=== PATIENT | female | born 1960 | race Caucasian/White ===

== ENCOUNTER → 2016-11-27 | Outpatient (CLI) | payer BC ==
[~2016-11-27] MED LIST: BNT20 PO; BUSP5TAB59 PO; CALCTAB5 PO; CYCL-259 PO; DULO60CA44 PO; GABA-113 PO; GABA300C19 PO; GADAVIST IV PRN; MELO7.5T5 PO; MULT-845 PO; PANT40TA PO; POLY1POW2 PO; RXC5 PO; TRAM-10 PO
--- NOTE | 2016-11-27 11:07 | DIAGNOSTIC IMAGING REPORT ---
LUMBAR SPINE MRI WITH AND WITHOUT CONTRAST HISTORY: Chronic low back pain. LUMBAR RADICULOPATHY TECHNIQUE: Multiplanar multisequence MRI of the lumbar spine was performed both before and after the intravenous administration of contrast. COMPARISON: Lumbar spine MRI 10/21/2013. FINDINGS: For the purpose of the report the L5-S1 disc space will be located on axial image 27 of 30. Alignment and curvature are intact. Vertebral body heights are well maintained. There is no fracture or subluxation. There is severe disc space narrowing at L5-S1, unchanged. There is disc desiccation at L4-L5, unchanged. The conus terminates at the L1-L2 disc space level. There is moderate facet osteoarthritis at L5-S1. There is mild facet osteoarthritis at L3-L4 and L4-L5. Heterogeneous signal abnormality within the L5 and S1 endplates is likely due to long-standing degenerative change. There are postoperative changes consistent with a prior partial laminectomy at the L5-S1 level. Postcontrast sequences demonstrate a small focus of enhancement within the large disc herniation at L5-S1. Slight progression of the decreased T1 signal and enhancement at the L5-S1 endplates with mild prevertebral edema which is new from the prior study. However, there is no definite endplate erosions at this time. L1-L2: No significant central canal or neural foraminal narrowing. L2-L3: No significant central canal or neural foraminal narrowing. L3-L4: No significant central canal or neural foraminal narrowing. There is mild bilateral facet hypertrophy. L4-L5: There is a focal central disc protrusion with mild inferior subligamentous migration. This measures approximately 15 x 7 mm in size. In conjunction with the ligamentum and facet hypertrophy, this results in mild to moderate central canal narrowing. This is similar to the prior study. There is also mild bilateral neural foraminal narrowing, unchanged. This disc herniation abuts the bilateral transiting L5 nerve roots. L5-S1: There is redemonstration of the large focal central disc protrusion which measures approximately 19 x 11 mm. This results in moderate to severe central canal narrowing at this level. There is also bilateral severe neural foraminal narrowing due to the facet hypertrophy. This is also similar to the prior study. IMPRESSION: 1. Redemonstration of the large focal central disc protrusion at L5-S1 which results in moderate to severe central canal narrowing and severe bilateral neural foraminal narrowing. This is not significantly changed. 2. Redemonstration of the moderate focal central disc protrusion at L4-L5 which results in mild to moderate central canal narrowing and mild bilateral neural foraminal narrowing. This is also not significantly changed. 3. Postsurgical changes at L5-S1. 4. Slight progression of the decreased T1 signal and enhancement at the L5-S1 endplates with mild prevertebral edema which is new from the prior study. There is also a small focus of enhancement within the large herniated disc. These findings are nonspecific in the setting of postoperative changes but could represent a developing discitis/osteomyelitis. Clinical correlation recommended. Electronically signed by: Dominick Malloy M.D. 11/27/2016 11:06 AM Dictated Date/Time: 11/27/2016 10:51 AM
== END | disposition home or self-care (01) ==
PROVIDERS: ATTEND Physician Assistant
DX: M51.17 Intervertebral disc disorders with radiculopathy, lumbosacral region (principal)

== ENCOUNTER 2017-01-29 08:11 | Inpatient (IN) | payer BC ==
--- NOTE | 2017-01-12 14:01 | PAT Medication Instructions ---
Service Date January 12, 2017. Current Home Medication List Buspirone Hcl (Buspirone Hcl), 1 TAB PO BID Calcium (Caltrate), 600 MG PO BID Cyclobenzaprine Hcl (Flexeril), 10 MG PO prn at hs Duloxetine Hcl (Cymbalta), 60 MG PO HS Gabapentin (Neurontin), 600 MG PO HS Gabapentin (Neurontin), 300 MG PO BID Meloxicam (Mobic), 15 MG PO QAM Multiple Vitamins W/ Minerals (Centrum Silver Adult 50+), 1 TAB PO QAM Tramadol (Ultram), 50-100 MG PO TID PRN for Pain Medication Instructions For Your Scheduled Surgery - Check with surgeon for instructions: Meloxicam (Mobic), 15 MG PO QAM - Hold the following medications the morning of surgery: Multiple Vitamins W/ Minerals (Centrum Silver Adult 50+), 1 TAB PO QAM Calcium (Caltrate), 600 MG PO BID - Take the following medications the morning of surgery with a sip of water: Gabapentin (Neurontin), 300 MG PO BID Buspirone Hcl (Buspirone Hcl), 1 TAB PO BID Tramadol (Ultram), 50-100 MG PO TID PRN for Pain (okay to take up to 4 hours prior to surgery if needed) - Take the following medications as scheduled the night before surgery: Gabapentin (Neurontin), 300 MG PO BID Duloxetine Hcl (Cymbalta), 60 MG PO HS Gabapentin (Neurontin), 600 MG PO HS Cyclobenzaprine Hcl (Flexeril), 10 MG PO prn at hs (if needed) Calcium (Caltrate), 600 MG PO BID Buspirone Hcl (Buspirone Hcl), 1 TAB PO BID Tramadol (Ultram), 50-100 MG PO TID PRN for Pain (if needed) If you have any questions please call us at [phone] (Lorie Flowers PA-C) or [phone] or [phone]
--- NOTE | 2017-01-12 15:03 | DIAGNOSTIC IMAGING REPORT ---
CHEST 2 VIEWS ROUTINE CLINICAL HISTORY: Preoperative evaluation. COMPARISON STUDY: Chest radiograph February 11, 2016. FINDINGS: Lung volumes are normal. There is no pneumothorax or pleural effusion. Nipple shadows project over each lung. Cardiac size is normal. Mediastinal contours are normal. There is mild pectus excavatum deformity. There is no evidence of pulmonary edema. IMPRESSION: No acute cardiopulmonary findings. Electronically signed by: Romel Rojas M.D. 01/12/2017 3:02 PM Dictated Date/Time: 01/12/2017 3:01 PM
[2017-01-12 15:21] LABS: BASO % 0.9 %; BASO ABS # 0.07 K/uL (0-0.2); COMPLETE YES; EOS % 2.6 %; HEMATOCRIT 35.2 % (37-47); IG% 0.1 %; LYMPH % 42.2 %; LYMPH ABS # 3.23 K/uL (1.2-3.4); MEAN CELL VOLUME 98.3 fL (80-100); MEAN CORPUSCULAR HGB CONC 33.5 g/dl (32-36); MEAN PLATELET VOLUME 10.8 fL (7.4-10.4); MONO % 9.1 %; NEUT % 45.1 %; PLATELET COUNT 277 K/uL (130-400); RED BLOOD COUNT 3.58 M/uL (4.2-5.4); WHITE BLOOD COUNT 7.66 K/uL (4.8-10.8)
[2017-01-12 15:27] LABS: URINE APPEARANCE CLOUDY (CLEAR); URINE BILIRUBIN NEG (NEG); URINE COLOR YELLOW; URINE EPITHELIAL CELL AUTO >30 /lpf (0-5); URINE NITRITE NEG (NEG); URINE SPECIFIC GRAVITY 1.014 (1.000-1.030); UROBILINOGEN NEG (NEG)
[2017-01-12 15:28] LABS: CALCIUM 8.8 mg/dl (8.5-10.1); CREATININE 0.69 mg/dl (0.60-1.20); POTASSIUM 3.9 mmol/L (3.5-5.1)
[2017-01-12 15:32] LABS: MANUAL MICROSCOPIC REQUIRED? NO; REVIEW REQ? NO
[~2017-01-29] VITALS: Ht 157.5 cm; Wt 49.5 kg
[2017-01-29] VITALS (9 sets, daily range): BP systolic 95–124; BP diastolic 61–83; PULSE 69–90; TEMP 36.5–36.9; O2SAT 96–100; Ht 157.5 cm; Wt 49.5 kg
[~2017-01-29 08:11] MED LIST changes: +ANCEF: ALLERGY NOTED TO ORDERED MEDICATION SCH; +ATROPINE SULFATE 0.1 MG/ML 5ML SYR IV PRN; -BNT20 PO; +CEFAZOLIN 1000MG/55 ML D5W IV SCH; +EpHEDrine SULFATE INJ 50 MG/ML AMP IV PRN; +FENTANYL CITRATE INJ 50 MCG/1 ML 2 ML VIAL IV PRN; +GABA-1218 PO; -GABA300C19 PO; -GADAVIST IV PRN; +HYDROmorphone INJ 1 MG/ML SYR IV PRN; +LACTATED RINGER'S 1000ML 1,000 ML IV SCH; +ONDANSETRON INJ 2 MG/ML 2 ML VIAL IV PRN; -PANT40TA PO; -POLY1POW2 PO; -RXC5 PO
[2017-01-29] MEDS ORDERED: FENTANYL CITRATE INJ 50 MCG/1 ML 2 ML VIAL ONE ×3 (08:43→09:42)
[2017-01-29] MEDS ORDERED: MIDAZOLAM HCL 1 MG/ML 2ML VIAL ONE (08:43)
--- NOTE | 2017-01-29 08:55 | History and Physical ---
History & Physical Date January 29, 2017. Chief Complaint back and leg pain History of Present Illness The patient is a 56 year old female with complaints of Additional History Hepatic Disease: No Endocrine Disorder: No Kidney Disease: No Hypertension: No Heart Disease: No Bleeding Tendencies: No Infectious Diseases: No Allergies Coded Allergies: Penicillins (Verified Allergy, Mild, RASH, 01/29/17) Home Medications Scheduled Buspirone Hcl (Buspirone Hcl), 1 TAB PO BID Calcium (Caltrate), 600 MG PO BID Cyclobenzaprine Hcl (Flexeril), 10 MG PO prn at hs Duloxetine Hcl (Cymbalta), 60 MG PO HS Gabapentin (Neurontin), 600 MG PO HS Gabapentin (Neurontin), 300 MG PO BID Meloxicam (Mobic), 15 MG PO QAM Multiple Vitamins W/ Minerals (Centrum Silver Adult 50+), 1 TAB PO QAM Scheduled PRN Tramadol (Ultram), 50-100 MG PO TID PRN for Pain Physical Examination Skin: warm/dry, no rash Eyes: normal inspection, EOMI, sclerae normal ENT: normal ENT inspection, pharynx normal Head: normocephalic, atraumatic Neck: supple, no adenopathy, trachea midline Respiratory/Chest: lungs clear, normal breath sounds, no respiratory distress Cardiovascular: regular rate, rhythm, no edema, no murmur Abdomen / GI: normal bowel sounds, non tender Back: normal inspection Extremities: normal inspection, normal range of motion Neurologic/Psych: no motor/sensory deficits, alert, normal reflexes, oriented x 3 Diagnosis lumbar stenosis Plan of Treatment decompression fusion L4-S1
--- NOTE | 2017-01-29 08:55 | History & Physical Bridge Note ---
H&P Re-Evaluation Bridge Note: I have examined the patient, reviewed the History & Physical and in the interval since the performance of the History & Physical I have noted the following changes of clinical significance: No changes noted
[2017-01-29] MEDS ORDERED: BUPIVACAINE/EPINEPHRINE 0.5% MPF 1:200,000 30 ML VIAL ONE (09:12)
[2017-01-29] MEDS ORDERED: BACITRACIN 50000 UNIT VIAL ONE (09:12)
[2017-01-29] MEDS ORDERED: SODIUM CHLORIDE 0.9% PF 50 ML VIAL ONE (09:12)
[2017-01-29] MEDS ORDERED: HYDROmorphone INJ 2 MG/ML SYR/VIAL ONE ×3 (09:42→11:38)
[2017-01-29] MEDS ORDERED: PHENYLEPHRINE 100MCG/ML 5ML SYR ONE ×2 (11:02→11:38)
[2017-01-29] MEDS ORDERED: ESMOLOL HCL 10 MG/ML 10 ML VIAL ONE (11:02)
[2017-01-29] MEDS ORDERED: PROPOFOL IV EMULSION 10 MG/ML 20 ML VIAL IV ONE (11:02)
[2017-01-29] MEDS ORDERED: DEXAMETHASONE SOD INJ 4 MG/ML VIAL ONE (11:02)
[2017-01-29] MEDS ORDERED: LIDOCAINE HCL 2% 2 ML VIAL (20MG/ML) ONE (11:02)
[2017-01-29] MEDS ORDERED: ROCURONIUM BROMIDE 10 MG/ML 5 ML VIAL ONE (11:02)
[2017-01-29] MEDS ORDERED: FLOSEAL HEMOSTATIC MATRIX 10ML TOP ONE (11:28)
[2017-01-29] MEDS ORDERED: SODIUM CHLORIDE 0.9% 1000ML 1,000 ML IV SCH (11:31)
--- NOTE | 2017-01-29 11:31 | [facility] Post Operative Brief Note ---
Immediate Operative Summary Operative Date January 29, 2017. Pre-Operative Diagnosis Lumbar Spinal Stenosis Post-Operative Diagnosis Lumbar Spinal Stenosis Procedure(s) Performed L4-L5, L5-S1 Lumbar Decompression/Laminectomy, Discectomy; Placement of Interbody Spacer; Pedicle Screw Fixation; Application of Bone Graft (Allograft) Application of Bone Morphogenetic Protein, and Posterolateral Gutter Fusion Surgeon Dr. Ochoa Master [employer] Surgeon(s) FLORINA Butler Estimated Blood Loss 150ML Findings stenosis/hnp Specimens none per surgeon
[2017-01-29] MEDS ORDERED: NEOSTIGMINE METHYLSULFATE 1 MG/ML 10ML VIAL ONE (11:38)
[2017-01-29] MEDS ORDERED: GLYCOPYRROLATE INJ 0.2 MG/ML VIAL ONE (11:38)
[2017-01-29] MEDS ORDERED: ONDANSETRON INJ 2 MG/ML 2 ML VIAL ONE ×2 (11:38)
[2017-01-29] MEDS ORDERED: ONDANSETRON INJ 2 MG/ML 2 ML VIAL IV PRN (11:45)
[2017-01-29] MEDS ORDERED: DO NOT ADMINISTER PNEUMOCOCCAL VACCINE PRN ×2 (11:45)
[2017-01-29] MEDS ORDERED: ALUMINUM/MAGNESIUM SUSP 30 ML UDC PO PRN (11:45)
[2017-01-29] MEDS ORDERED: SOD PHOSPHATE/SOD BIPHOSPHATE ENEMA 132 ML BTL PR PRN (11:45)
[2017-01-29] MEDS ORDERED: NALOXONE HCL 0.4 MG/1 ML VIAL/CARP IV PRN ×2 (11:45)
[2017-01-29] MEDS ORDERED: METOCLOPRAMIDE HCL INJ 5 MG/ML 2 ML VIAL IV PRN (11:45)
[2017-01-29] MEDS ORDERED: CYCLOBENZAPRINE HCL 10 MG TAB PO PRN (11:45)
[2017-01-29] MEDS ORDERED: MAGNESIUM HYDROXIDE SUSP 30 ML UDC PO PRN (11:45)
[2017-01-29] MEDS ORDERED: PROMETHAZINE HCL INJ 12.5 MG in SODIUM CHLORIDE 0.9% 50ML 50 ML IV PRN (11:45)
[2017-01-29] MEDS ORDERED: ACETAMINOPHEN 500 MG TAB PO PRN (11:45)
[2017-01-29] MEDS ORDERED: BISACODYL 10 MG SUPP PR PRN (11:45)
[2017-01-29] MEDS ORDERED: LORAZEPAM INJ 0.5 MG in SYRINGE 0 ML IV PRN (11:45)
[2017-01-29] MEDS ORDERED: hydrOXYzine HCL 25 MG TAB PO PRN (11:45)
[2017-01-29] MEDS ORDERED: LORAZEPAM 0.5 MG TAB PO PRN (11:45)
[2017-01-29] MEDS ORDERED: ACETAMINOPHEN IV 100 ML IV PRN (11:45)
[2017-01-29] MEDS ORDERED: FAMOTIDINE 20 MG TAB PO PRN (11:45)
[2017-01-29] MEDS ORDERED: DO NOT ADMINISTER FLU VACCINE PRN ×3 (11:45)
[2017-01-29] MEDS ORDERED: HYDROmorphone HCL 0.5MG/ML 50 ML CASSETTE ONE (11:54)
[2017-01-29] MEDS ORDERED: ALBUT/IPRATROP 3MG/0.5MG NEB 3 ML VIAL INH PRN (12:00)
--- NOTE | 2017-01-29 12:07 | DIAGNOSTIC IMAGING REPORT ---
INTRAOPERATIVE RADIOGRAPHS CLINICAL HISTORY: L4-S1 spinal fusion. Fluoroscopy time: 26 seconds. FINDINGS: 2 spot fluoroscopic views of the lower lumbar spine are presented. There is evidence of laminectomy and posterior fusion from L4 -S1. Interpedicular screws are present at all levels. There has been discectomy at L4-L5 and L5-S1. The orthopedic hardware appears intact. IMPRESSION: Intraoperative images from L4 -S1 spinal fusion as above. Electronically signed by: Antwan Love M.D. 01/29/2017 12:06 PM Dictated Date/Time: 01/29/2017 12:05 PM
--- NOTE | 2017-01-29 12:21 | OPERATIVE REPORT ---
DATE OF OPERATION: 01/29/2017 PREOPERATIVE DIAGNOSES: Spinal stenosis and herniated nucleus pulposus, L4-L5 and L5-S1. POSTOPERATIVE DIAGNOSES: Same. PROCEDURES PERFORMED: 1. Revision decompression, medial facetectomy and foraminotomy, L4-L5 and L5-S1. 2. Posterior spinal fusion, L4-L5 and L5-S1. 3. Placement of posterior segmental instrumentation using Medicrea rods and screws, L4-L5 and L5-S1. 4. Interbody fusion, L4-L5 and L5-S1. 5. Placement of PEEK cage 12 x 22 at L4-L5 and 8 x 22 at L5-S1. 6. Placement of locally harvested morcellized autograft in the posterior gutters. 7. Placement of Infuse collagen sponge combined with Mastergraft in the posterior gutters and Olivia bone graft in the interbody space. SURGEON: Dr. Kodak Ochoa. MARINE EQUIPMENT RESEARCH ENGINEER: Ara Mccoy PA-C. Due to the complex nature of the procedure, the entire surgery was performed with the assistant health educator of Ara Mccoy PA-C. The blacksmith assistant, under direct supervision, was involved in the actual performance of all aspects of the surgical procedure including hemostasis, tissue retraction and incision, instrument management, patient positioning, and wound closure. ANESTHESIA: General. DISPOSITION: The patient awakened and taken to PACU in stable condition. HISTORY OF PATIENT'S PROBLEMS: This is a 56-year-old female that presents with the above-mentioned diagnoses. After failing an extensive course of nonoperative care, she elected to undergo the above-mentioned procedures. Risks, benefits, pros, cons, and alternatives were outlined in detail preoperatively. DESCRIPTION OF PROCEDURE: The patient was met with preoperatively, the case discussed and all questions were addressed. At that point, the patient was taken back to operative suite and after undergoing successful general intubation by department of anesthesia, she was placed in prone position on Trung table atop Giorgio frame. All bony prominences were well padded and the eyes were inspected to ensure there was no external pressure placed upon them. At this point, the lumbar spine was prepped and draped in normal sterile fashion. Sharp dissection with the assistance of Bovie cautery was performed down to and exposing the remaining lamina and transverse processes of L4, L5 and sacral ala bilaterally. A revision complete laminectomy of L5 and L4 was then performed addressing severe lateral recess foraminal disease as well as a massive disk herniation at both levels. After this was complete, pedicle screws were then placed in L4, L5 and S1 levels bilaterally with the assistance of fluoroscopy and through a transforaminal approach on the left, a complete diskectomy of L5-S1 was performed, endplates curetted to subcortical bleeding bone and an 8 x 22 mm PEEK cage filled with Olivia bone grafting tapped into position. I then proceeded to L4-L5 and again through a transforaminal approach on the left, a complete diskectomy was performed, endplates curetted to subcortical bleeding bone and a 12 x 22 mm PEEK cage filled with Olivia bone grafting tapped into position. The rods were then placed, locked into final position bilaterally and transverse processes of L4, L5 and sacral ala burred to subcortical bleeding bone. Infuse collagen sponge combined with Mastergraft and locally harvested morcellized autograft was placed in the posterior gutters. A 7 flat LAI drain was inserted. Incision was closed with 1-0 Vicryl in the fascia, 2-0 Vicryl subcutaneously, and 4-0 Monocryl for final skin closure. Steri-Strips and sterile dressing placed. The patient was awakened and taken to PACU in stable condition. I attest to the content of the Intraoperative Record and any orders documented therein. Any exceptio ns are noted below.
--- NOTE | 2017-01-29 12:28 | Anesthesiology Progress Note ---
Anesthesia Post Op Note Date & Time January 29, 2017 at 12:28 Vital Signs Pain Intensity: 0 Vital Signs Past 12 Hours Date Time Temp Pulse Resp B/P Pulse Ox O2 Delivery O2 Flow Rate FiO2 01/29/17 12:15 96 16 127/75 100 Mask 10 01/29/17 12:15 90 12 100 Diffusion Mask 10.0 01/29/17 12:05 87 14 132/77 100 Mask 10 01/29/17 11:55 80 14 128/68 100 Mask 10 01/29/17 11:49 36.2 84 14 124/67 100 Mask 10 01/29/17 08:39 36.9 90 20 123/83 96 Room Air Notes Mental Status: alert / awake / arousable, participated in evaluation Pt Amnestic to Procedure: Yes Nausea / Vomiting: adequately controlled Pain: adequately controlled Airway Patency, RR, SpO2: stable & adequate BP & HR: stable & adequate Hydration State: stable & adequate Anesthetic Complications: no major complications apparent
[2017-01-29] MEDS: LACTATED RINGER'S 1000ML 1,000 ML IV SCH ×2 (14:29→21:03)
[2017-01-29] MEDS: HYDROmorphone HCL 0.5MG/ML 50 ML CASSETTE IV PRN ×2 (14:57→23:03)
[2017-01-29] MEDS ORDERED: RXC5 PO (15:13)
--- NOTE | 2017-01-29 15:13 | Discharge Instructions ---
Discharge Instructions Date of Service January 29, 2017. Admission Reason for Admission: Spinal Stenosis Discharge Discharge Diagnosis / Problem: stenosis Discharge Goals Goal(s): Improve function Activity Recommendations Activity Limitations: per Instructions/Follow-up section . Instructions / Follow-Up Instructions / Follow-Up ACTIVITY RECOMMENDATIONS: SELF CARE INSTRUCTIONS AFTER THORACIC/LUMBAR FUSIONS 1. You may walk to your tolerance. It is good exercise for your legs and back. Expect some back and intermittent leg aches and pains. 2. You may perform "counter-top" level activities (make a sandwich, cleve with a project, etc.). 3. No bending or lifting of more than 10 pounds or back twisting of any nature (roll like a log when turning in bed). 4. You may ride in a car for 20-30 minutes at a time. No driving until after your first visit with your doctor. 5. Frequent changes of position and restricting sitting to 30 minutes at a time will help limit the amount of back spasms and stiffness you may experience. 6. You may discontinue the use of ambulatory aids (cane, crutches, etc.) once your strength and confidence allow. 7. You may weaving teacher the shower and let water strike your incision when you arrive home at least once daily. Do not take a tub bath, sit in a hot tub or go into a swimming pool until after your first recheck in the office. SPECIAL CARE INSTRUCTIONS: VERY IMPORTANT TO READ AND REVIEW A. Your surgical incision has been closed with a cosmetic suture under the skin that will dissolve in about 6 weeks. In 14 days, you can use a pair of clean scissors and cut the suture that is left outside of the skin at the ends of your incision. 1. The small skin tapes can be removed 7 days after surgery if they have not fallen off by that point. 2. You may keep the wound open to air as much as possible to promote healing after post-op day number 5 unless told otherwise by your doctor. 3. If you think the wound looks like it is becoming infected (redness or worsening drainage) and/or you are experiencing fever, chill or worsening back pain and muscle spasms, contact the office so that we may evaluate you as soon as possible. B. Complications are uncommon, but please contact us if you have any signs or symptoms of: 1. wound infection (fever higher than 102.5 degrees F, redness, separation of wound, drainage, or increasing pain from the incision) 2. blood clots in legs (pain, swelling, redness and warmth in legs) 3. urinary tract infection (fever higher than 102.5 degrees F, burning upon urination or increased frequency of urination) 4. nerve problems (inability to walk on your toes or heels, numbness, loss of bowel or bladder control) 5. any other symptoms that concern you C. Please call the office at if you have any concerns or questions about your operation or recovery. D. No smoking! Smoking drastically decreases the chance of a solid fusion. E. Do not take any anti-inflammatory medications (Indocin, Advil, Motrin, Aspirin, Naprosyn, etc.) as these may inhibit the chance of a solid fusion. Tylenol is okay to take for pain. MANAGING PAIN AFTER SPINAL SURGERY 1. Narcotic medication is intended for short-term use and will be provided for surgical pain. Surgical pain usually lasts for a period of 4-6 weeks. Narcotic medication includes Percocet, Vicodin, Darvocet, Tylenol #3 or Lortab. 2. Longer-term pain is more appropriately treated with non-narcotic medication such as Tylenol ES. 3. Muscle spasm is not appropriately treated with narcotics. Muscle relaxers such as Soma, Flexeril or Skelaxin can be used along with Tylenol ES. 4. Remember that we all live with some "aches and pains". This is not unusual or uncommon after an injury or as we get older. a. Back pain is expected and may include muscle spasms for 4 to 6 weeks after surgery. The pain should gradually improve. If the pain worsens for no apparent reason, please contact the office. b. Intermittent leg pain may also be experienced and should not be concerned about unless it worsens for no apparent reason. If so, please contact the office. 5. We will provide appropriate medication within the normal guidelines of their prescribed use. We will also be very cautious and aware of potential abuse and extended duration of patients' medication needs. a. Pain medications are for your comfort and to assist with sleep and rest so that the tissue can heal. They are not provided in order to return to normal activity and should not be used through the day. To do so or worsening pain at night can result from ongoing tissue damage and development of tolerance to the prescribed medicine. 6. Please allow 2-3 days to process refills. Prescriptions will not be mailed but must be picked up at the office. FOLLOW UP VISIT: Keep your scheduled follow-up appointment. Any questions, please call the office at . Current Hospital Diet Patient's current hospital diet: Regular Diet Discharge Diet Recommended Diet: Regular Diet Procedures Procedures Performed: L4-L5, L5-S1 Lumbar Decompression/Laminectomy, Discectomy; Placement of Interbody Spacer; Pedicle Screw Fixation; Application of Bone Graft (Allograft) Application of Bone Morphogenetic Protein, and Posterolateral Gutter Fusion Pending Studies Studies pending at discharge: no Medical Emergencies . Who to Call and When: Medical Emergencies: If at any time you feel your situation is an emergency, please call 911 immediately. . Non-Emergent Contact Non-Emergency issues call your: Primary Care Provider . "Provider Documentation" section prepared by Kodak Ochoa. . VTE Core Measure Inpt VTE Proph given/why not?: Zach Andres, SCD's
[2017-01-29] MEDS: CLINDAMYCIN IV 600 MG in DEXTROSE 5% ADD-VANTAGE 50ML 50 ML IV SCH (18:34)
[2017-01-29] MEDS ORDERED: NURSING VERBAL MED ORDER ONE (21:00)
[2017-01-29] MEDS: GABAPENTIN 600 MG TAB PO SCH (21:02)
[2017-01-29] MEDS: DULOXETINE HCL 60 MG CAP PO SCH (21:02)
[2017-01-29] MEDS: NICOTINE 21 MG/24 HR TDSY EXT SCH (21:03)
[2017-01-29] MEDS: DOCUSATE SODIUM/SENNA 50/8.6MG TAB PO SCH (21:03)
[2017-01-29] MEDS: DEXAMETHASONE INJ 6 MG in SYRINGE 0 ML IV SCH (21:17)
[2017-01-30] MEDS: CLINDAMYCIN IV 600 MG in DEXTROSE 5% ADD-VANTAGE 50ML 50 ML IV SCH (02:55)
[2017-01-30] MEDS: LACTATED RINGER'S 1000ML 1,000 ML IV SCH (02:56)
[2017-01-30 03:11] VITALS: BP 106/60; PULSE 82; TEMP 36.7; O2SAT 100
[2017-01-30] MEDS: DEXAMETHASONE INJ 6 MG in SYRINGE 0 ML IV SCH ×2 (04:59→11:57)
[2017-01-30] MEDS ORDERED: HYDROmorphone INJ 1 MG/ML SYR IV PRN (06:00)
[2017-01-30] MEDS ORDERED: DC PCA SCH (06:00)
[2017-01-30 06:32] LABS: BASO % 0.1 %; BASO ABS # 0.01 K/uL (0-0.2); COMPLETE YES; HEMATOCRIT 30.2 % (37-47); IG% 0.2 %; LYMPH % 7.6 %; LYMPH ABS # 1.01 K/uL (1.2-3.4); MEAN CELL VOLUME 99.3 fL (80-100); MEAN CORPUSCULAR HEMOGLOBIN 32.9 pg (25-34); MEAN CORPUSCULAR HGB CONC 33.1 g/dl (32-36); MEAN PLATELET VOLUME 10.5 fL (7.4-10.4); MONO % 6.7 %; NEUT % 85.4 %; PLATELET COUNT 231 K/uL (130-400); RED BLOOD COUNT 3.04 M/uL (4.2-5.4); WHITE BLOOD COUNT 13.36 K/uL (4.8-10.8)
[2017-01-30] MEDS ORDERED: NURSING VERBAL MED ORDER ONE (06:45)
[2017-01-30 07:02] LABS: BUN/CREATININE RATIO 9.3 (10-20); CALCIUM 8.1 mg/dl (8.5-10.1); CREATININE 0.84 mg/dl (0.60-1.20); POTASSIUM 4.5 mmol/L (3.5-5.1)
[2017-01-30 07:13] VITALS: BP 111/67; PULSE 81; TEMP 36.8; O2SAT 96
--- NOTE | 2017-01-30 08:14 | Anesthesiology Progress Note ---
Anesthesia Post Op Note Date & Time January 30, 2017 at 08:14 Vital Signs Pain Intensity: 5.0 Vital Signs Past 12 Hours Date Time Temp Pulse Resp B/P Pulse Ox O2 Delivery O2 Flow Rate FiO2 01/30/17 07:20 Room Air 01/30/17 07:13 36.8 81 17 111/67 96 Room Air 01/30/17 03:11 Room Air 01/30/17 03:11 36.7 82 16 106/60 100 Room Air 01/30/17 00:26 Nasal Cannula 2.0 01/29/17 23:35 36.7 75 16 107/68 100 Nasal Cannula 2.0 Notes Mental Status: alert / awake / arousable, participated in evaluation Pt Amnestic to Procedure: Yes Nausea / Vomiting: adequately controlled Pain: adequately controlled Airway Patency, RR, SpO2: stable & adequate BP & HR: stable & adequate Hydration State: stable & adequate Anesthetic Complications: no major complications apparent
[2017-01-30] MEDS: GABAPENTIN 300 MG CAP PO SCH ×2 (08:26→11:57)
[2017-01-30] MEDS: OXYCODONE HCL IR 5 MG TAB (IMMEDIATE RELEASE) PO PRN ×2 (08:26→23:59)
[2017-01-30] MEDS: TRAMADOL HCL 50 MG TAB PO PRN ×2 (12:00→18:07)
[2017-01-30 12:51] VITALS: BP 127/82; PULSE 94; TEMP 36.9; O2SAT 97
--- NOTE | 2017-01-30 15:13 | PROGRESS NOTE ---
DATE: 01/30/2017 DATE: 01/30/2017. SUBJECTIVE: Postop day 1. Back pain controlled. Leg pain improved. Vital signs stable. T-max 36.9. LAI drained 140 mL today. Hematocrit stable at 30.1. OBJECTIVE: On exam she has good strength to testing, appears comfortable. ASSESSMENT: Status post lumbar decompression and fusion. PLAN: At this time, will continue physical therapy, advance her bowel regimen and anticipate home this weekend.
[2017-01-30 15:55] VITALS: BP 129/83; PULSE 94; TEMP 36.9; O2SAT 95
[2017-01-30] MEDS: NICOTINE 21 MG/24 HR TDSY EXT SCH (20:42)
[2017-01-30] MEDS: DOCUSATE SODIUM/SENNA 50/8.6MG TAB PO SCH (21:06)
[2017-01-30] MEDS: DULOXETINE HCL 60 MG CAP PO SCH (21:06)
[2017-01-30] MEDS: GABAPENTIN 600 MG TAB PO SCH (21:07)
[2017-01-30 23:05] VITALS: BP 129/79; PULSE 96; TEMP 36.9; O2SAT 95
[2017-01-31] MEDS ORDERED: POLYETHYLENE (MIRALAX) 17 GM PACK PO SCH (06:00)
[2017-01-31 07:21] VITALS: BP 125/92; PULSE 95; TEMP 36.9; O2SAT 92
[2017-01-31] MEDS: TRAMADOL HCL 50 MG TAB PO PRN (08:04)
[2017-01-31] MEDS: GABAPENTIN 300 MG CAP PO SCH (09:02)
[2017-01-31 10:24] VITALS: BP 125/92; PULSE 95; TEMP 36.9; O2SAT 92
--- NOTE | 2017-01-31 10:48 | DISCHARGE SUMMARY ---
PRINCIPAL DIAGNOSIS: Spinal stenosis. HOSPITAL COURSE FOLLOWS: On 01/29/2017 the patient underwent lumbar decompression and fusion L4-L5, L5-S1, tolerated this well and taken to the orthopedic floor postoperatively. Postop day #1, she was up and ambulatory, progressed to postop day #2. LAI drain decreasing appropriately, pain was controlled, subsequently discharged home. Discharge orders and instructions can be found in the chart for further review.
[2017-06-03] MEDS ORDERED: BNT20 PO (18:37)
== END 2017-01-31 11:30 | disposition home or self-care (01) | DRG 460 ==
LOC: ENRESERVDT → ENRESERVTM → C.ACU 08:11 → C.3E 11:35
PROVIDERS: ADMIT Orthopaedic Surgery Orthopaedic Surgery of the Spine; ATTEND Orthopaedic Surgery Orthopaedic Surgery of the Spine
PROC: 0SG00A1 (ICD-10-PCS; principal; 2017-01-29 10:15)
PROC: 0ST40ZZ Resection of Lumbosacral Disc, Open Approach (ICD-10-PCS; principal; 2017-01-29 10:15)
PROC: 0SG30A1 (ICD-10-PCS; principal; 2017-01-29 10:15)
DX: M48.06 Spinal stenosis, lumbar region (principal); Z79.899 Other long term (current) drug therapy

== ENCOUNTER 2017-06-02 21:21 | Inpatient (IN) | payer BC ==
[~2017-06-02] VITALS: Ht 157.5 cm; Wt 45.9 kg
[~2017-06-02 21:21] MED LIST changes: -ANCEF: ALLERGY NOTED TO ORDERED MEDICATION SCH; -ATROPINE SULFATE 0.1 MG/ML 5ML SYR IV PRN; -CEFAZOLIN 1000MG/55 ML D5W IV SCH; -EpHEDrine SULFATE INJ 50 MG/ML AMP IV PRN; -FENTANYL CITRATE INJ 50 MCG/1 ML 2 ML VIAL IV PRN; -GABA-1218 PO; +GABA300C19 PO; -HYDROmorphone INJ 1 MG/ML SYR IV PRN; -LACTATED RINGER'S 1000ML 1,000 ML IV SCH; -MELO7.5T5 PO; -ONDANSETRON INJ 2 MG/ML 2 ML VIAL IV PRN; +RXC5 PO
[2017-06-02 21:45] VITALS: BP 120/84; PULSE 88; TEMP 36.6; O2SAT 100
[2017-06-02] MEDS ORDERED: ACETAMINOPHEN 325 MG TAB PO PRN (21:45)
[2017-06-02 21:46] VITALS: BP 120/84; PULSE 88; TEMP 36.6; O2SAT 100; Ht 157.5 cm; Wt 45.9 kg
[2017-06-02] MEDS ORDERED: MULTI-VITAMIN INFUSION INJ 10 ML, THIAMINE HCL INJ 100 MG, FoLIC ACID INJ 1 MG in SODIU... IV ONE (22:00)
[2017-06-02] MEDS ORDERED: POLY1POW2 PO (22:17)
[2017-06-02] MEDS ORDERED: PANT40TA PO (22:17)
[2017-06-02] MEDS ORDERED: MELO7.5T5 PO (22:17)
[2017-06-02] MEDS ORDERED: NICOTINE 14 MG/24 HR TDSY TD ONE (22:29)
[2017-06-02] MEDS ORDERED: GABAPENTIN 800 MG TAB PO SCH (22:30)
[2017-06-02] MEDS ORDERED: LORAZEPAM 2 MG/ML 1 ML VIAL IV PRN (22:30)
[2017-06-02 22:35] LABS: BASO % 0.7 %; BASO ABS # 0.09 K/uL (0-0.2); COMPLETE YES; EOS % 1.1 %; HEMATOCRIT 36.7 % (37-47); IG% 0.3 %; LYMPH ABS # 3.27 K/uL (1.2-3.4); MEAN CELL VOLUME 93.1 fL (80-100); MEAN CORPUSCULAR HEMOGLOBIN 33.2 pg (25-34); MEAN CORPUSCULAR HGB CONC 35.7 g/dl (32-36); MEAN PLATELET VOLUME 10.2 fL (7.4-10.4); MONO % 7.9 %; PLATELET COUNT 311 K/uL (130-400); RED BLOOD COUNT 3.94 M/uL (4.2-5.4)
[2017-06-02 22:45] LABS: PROTHROMBIN TIME (PATIENT) 10.7 SECONDS (9.0-12.0)
[2017-06-02] MEDS ORDERED: OXYCODONE/ACETAMINOPHEN 5-325 TAB PO PRN (22:45)
[2017-06-02] MEDS ORDERED: GABAPENTIN 800MG LOADING DOSE PO ONE (22:45)
[2017-06-02 22:56] LABS: CALCIUM 9.6 mg/dl (8.5-10.1); CREATININE 0.8 mg/dl (0.60-1.20); MAGNESIUM 2.3 mg/dl (1.8-2.4); POTASSIUM 3.4 mmol/L (3.5-5.1)
[2017-06-02] MEDS ORDERED: POTASSIUM CHLORIDE 10 MEQ TABCR PO STA (22:56)
[2017-06-03] MEDS ORDERED: MoRPHine SULFATE 2 MG/ML CARP IV PRN (00:15)
[2017-06-03] MEDS ORDERED: PANTOprazole INJ 40 MG in SYRINGE 0 ML IV ONE (00:45)
[2017-06-03 00:52] VITALS: BP 131/81; PULSE 82; TEMP 36.5; O2SAT 100
[2017-06-03] MEDS: LACTATED RINGER'S 1000ML 1,000 ML IV SCH ×2 (02:01→13:53)
[2017-06-03] MEDS: GABAPENTIN 400MG Q6H DOSE PO SCH ×2 (05:44→11:51)
[2017-06-03 06:48] LABS: BASO % 0.5 %; BASO ABS # 0.04 K/uL (0-0.2); COMPLETE YES; EOS % 2.1 %; HEMATOCRIT 34.7 % (37-47); IG% 0.2 %; LYMPH % 25.6 %; LYMPH ABS # 2.12 K/uL (1.2-3.4); MEAN CELL VOLUME 94.6 fL (80-100); MEAN CORPUSCULAR HEMOGLOBIN 30.5 pg (25-34); MEAN CORPUSCULAR HGB CONC 32.3 g/dl (32-36); MEAN PLATELET VOLUME 10.4 fL (7.4-10.4); MONO % 9.8 %; NEUT % 61.8 %; PLATELET COUNT 303 K/uL (130-400); RED BLOOD COUNT 3.67 M/uL (4.2-5.4); WHITE BLOOD COUNT 8.28 K/uL (4.8-10.8)
[2017-06-03 07:17] LABS: BUN/CREATININE RATIO 13.6 (10-20); CALCIUM 8.5 mg/dl (8.5-10.1); CREATININE 0.6 mg/dl (0.60-1.20)
[2017-06-03 07:28] VITALS: BP 126/78; PULSE 78; TEMP 36.7; O2SAT 96
--- NOTE | 2017-06-03 07:55 | HISTORY & PHYSICAL EXAMINATION ---
DATE OF ADMISSION: 06/02/2017 PRIMARY CARE PHYSICIAN: Dr. Michaels. CHIEF COMPLAINT: Abdominal pain. CHIEF COMPLAINT: Abdominal pain. Abnormal CAT scan. HISTORY OF PRESENT ILLNESS: History is obtained from the patient and records. Medical history is significant for daily alcohol intake, ongoing tobacco abuse, arthritis. anxiety/mood dso. Recent confinement January 2017 under Orthopedic service for back surgery. For about 2 years now, the patient has been having intermittent achy upper abdominal pain going to the back worse with stress at work. No relation to food intake. Patient notes improvement of pain when she is at home. She got back to work last month. Increasing anxiety, epigastric pain going to the back. Seen at PCP's office. Impression was adjustment/anxiety disorder. Patient denies depression. Patient was prescribed lorazepam and Buspar. Some improvement of symptoms. Outpatient lipase from last month was noted to be 96. She was told to stop drinking alcohol. Repeat lipase contemplated after 1 month. Seen at PCP's office yesterday for worsening epigastric with mid back pain with nausea, no vomiting, no emesis, no inordinate weight loss as per the patient. Seen at PCP's office. PCP worried about pancreatitis and gastritis. Started on PPI b.i.d., counseled to stop drinking. Outpatient CAT scan showed acute interstitial pancreatitis, no fluid collection, thickened posterior stomach, likely active inflammation, mild distention of the appendix; indeterminate density in the partially imaged lingula. Patient sent to the hospital by PCP as a direct admission. MEDICAL HISTORY: As above. SURGERIES: She has had orthopedic procedures. HOME MEDICATIONS: Include, meloxicam, Prilosec, tramadol, lorazepam, Buspar, Cymbalta, gabapentin, Caltrate, Centrum. ALLERGIC: TO PENICILLIN. FAMILY HISTORY: There is a family history of hypertension. PERSONAL AND SOCIAL HISTORY: Half pack daily. Two beers in the evening, may be more on the weekends. 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 REVIEW OF SYSTEMS: As per HPI. All other ROS negative. PHYSICAL EXAMINATION: VITAL SIGNS: Blood pressure was noted to be 130/80, pulse rate 86, RR 18, temperature 36.6, sats 92 on room air. GENERAL: Noted to be comfortable, slightly anxious, no respiratory distress. hyposthenic. SKIN: Normal color. HEENT: [place] palpebral conjunctiva. Dry mucosa. NECK: No JVD. Supple. CHEST: Clear to auscultation. HEART: Regular rate and rhythm. ABDOMEN: Epigastric tenderness. EXTREMITIES: No edema. No tenderness. NEUROLOGIC: No gross focality. LABORATORY DATA: Hemoglobin was noted to be 13.1, white cell count was 12.6, platelet was noted to be 311. Sodium noted to be 137, K 3.4 chloride 103, BUN 10, creatinine 0.8, glucose was 72 Alcohol was less than 3. Lipase was normal. ASSESSMENT: 1. Abdominal pain of more than a month duration multifactorial : recurrent pancreatitis possibly ETOH intake gastritis (patient predisposed by ETOH, NSAID intake) 2. Hypokalemia. 3. Malnutrition, low BMI 4. Ongoing tobacco abuse 5. Anxiety/Mood disorder, stable on meds PLAN: GMF analgesia. PPI BID GI consult RE abdominal pain, gastritis on CT, possible EGD. Hold home NSAIDs for now Patient counseled to stop drinking drinking. Replace potassium. DT precautions. Nicotine patch. Nutrition consult RE low BMI. DVT prophylaxis with Lovenox subQ. Full code. MTDD
[2017-06-03] MEDS ORDERED: THIAMINE HCL 100 MG TAB PO SCH (08:00)
[2017-06-03] MEDS ORDERED: CEROVITE ADV FORMULA TAB PO SCH (08:00)
[2017-06-03] MEDS ORDERED: MULTIVITAMIN TAB PO SCH (08:00)
[2017-06-03] MEDS ORDERED: ENOXAPARIN 30 MG/0.3 ML SYR SQ SCH (08:00)
[2017-06-03] MEDS ORDERED: PANTOprazole INJ 40 MG in SYRINGE 0 ML IV SCH (09:00)
[2017-06-03] MEDS: TRAMADOL HCL 50 MG TAB PO PRN ×2 (09:11→18:02)
[2017-06-03 11:52] VITALS: BP 119/75; PULSE 88; TEMP 36.3; O2SAT 98
--- NOTE | 2017-06-03 13:50 | Gastrointestinal Consultation ---
Gastrointestinal Consultation Date of Consultation: Jun 03, 2017 Attending Physician: Demetris Blackburn Consulting Physician: Solange Castaneda Reason for Consultation: Abd pain History of Present Illness Patient is a 57 year old female who is seen in consultation for abd pain. She has c/o abd pain at epigastric region usually radiating to back x 2 years. She alwa attributed it to stress at work because when she goes home or out of work due to recent surgery she feels fine. Denies any association w fever, chills, CP, SOB, n/v, unintentional weight loss or bowel habit changes. Denies any reflux or heartburn. Not taking any NSAIDs on regular basis. Is a smoker, and drinks up to 2 beers most nights. Denies any illicit drugs. She saw Dr. Michaels for worsening abd pain yesterday at outpt clinic. Suspected to have pancreatitis. Labs obtained 1 month ago showed normal LFTs but Lipase 96. CT abd/pelvis done yesterday showed nromal liver, bile ducts, gallbladder, but homogenous pancreas , compatible w acute interstitial pancreatitis, no fluid collection. Posterior stomach thickening likely reactive due to pancreas inflammation. Also found to have atelectasis/scarring in lingua. Mild distension of appendix equivocal for early appendicitis. Pt was thus referred to ED for admission for pancreatitis. Repeat labs on arrival showed mild leukocytosis WBC 12, now down to 8, HH stable , no coagulopathy, CMP unremarkable w normal LFTs and lipase. No repeat imaging done. Pt's ETOH level was <3. She had been made NPO, given LR IVF. This AM she reports having no abd pain symptoms at all, denies any n/v. She repeated several times during my encounter w her today that her pain symptoms are " stress and anxiety" related w work. Was given Buspirone in the past but doesn't seem to be helping. Past Medical/Surgical History Past Medical History: Lumbago Past Surgical History: Spinal fusion, breast cyst drainage, tubal ligation Social History Smoking Status: Current Every Day Smoker Alcohol Use: occasionally Drug Use: none Occupation Status: employed Allergies Coded Allergies: Penicillins (Verified Allergy, Mild, RASH, 01/29/17) Current Medications Home Meds and Scripts Medications Dose Route/Sig Max Daily Dose Days Date Category Dose Instructions Polyethylene Glycol 3350 (Polyethylene Glycol 3350 (Bulk) 1 17 Gm PO DAILY PRN 06/02/17 Reported Mobic (Meloxicam) 7.5 Mg Tab 15 Mg PO DAILY 06/02/17 Reported Protonix (Pantoprazole Sodium) 40 Mg Tab 40 Mg PO BID 06/02/17 Reported Buspirone Hcl 5 Mg Tab 2 Tab PO BID 30 01/12/17 Reported Cymbalta (Duloxetine Hcl) 60 Mg Cap 60 Mg PO HS 10/27/14 Reported Ultram (Tramadol HCl) 50 Mg Tab 50-100 Mg PO TID PRN 05/02/14 Reported Neurontin (Gabapentin) 300 Mg Cap 600 Mg PO HS 03/30/14 Reported Centrum Silver Adult 50+ (Multiple Vitamins W/ Minerals) 1 Tab Tab 1 Tab PO QAM 03/16/14 Reported Caltrate (Calcium) 600 Mg Tab 600 Mg PO BID 03/16/14 Reported Flexeril (Cyclobenzaprine Hcl) 10 Mg Tab 10 Mg PO PRN AT HS 06/16/12 Reported PRN Review of Systems Constitutional: No fever, No chills, No weight loss Respiratory: No cough, No shortness of breath Cardiac: No chest pain Abdomen: No pain, No nausea, No vomiting Skin: No jaundice Physical Exam Date Time Temp Pulse Resp B/P (MAP) Pulse Ox O2 Delivery O2 Flow Rate FiO2 06/03/17 11:52 36.3 88 15 119/75 (90) 98 Room Air 06/03/17 09:45 Room Air 06/03/17 07:37 Room Air 06/03/17 07:28 36.7 78 14 126/78 (94) 96 Room Air 06/03/17 00:52 36.5 82 18 131/81 (98) 100 Room Air 06/03/17 00:00 Room Air 06/02/17 21:46 36.6 88 18 120/84 100 Room Air 06/02/17 21:45 36.6 88 18 120/84 (96) 100 Room Air General Appearance: WD/WN, no apparent distress Eyes: normal inspection, PERRL, EOMI Respiratory/Chest: normal breath sounds, no respiratory distress, no accessory muscle use Cardiovascular: regular rate, rhythm, no gallop, no murmur Abdomen: normal bowel sounds, non tender, soft Extremities: normal inspection, no pedal edema, no calf tenderness Neurologic/Psych: alert, normal mood/affect, oriented x 3 Skin: normal color, no jaundice, no rash Laboratory Results Last 24 Hours Test 06/02/17 22:22 06/03/17 05:47 White Blood Count 12.60 K/uL 8.28 K/uL Red Blood Count 3.94 M/uL 3.67 M/uL Hemoglobin 13.1 g/dL 11.2 g/dL Hematocrit 36.7 % 34.7 % Mean Corpuscular Volume 93.1 fL 94.6 fL Mean Corpuscular Hemoglobin 33.2 pg 30.5 pg Mean Corpuscular Hemoglobin Concent 35.7 g/dl 32.3 g/dl Platelet Count 311 K/uL 303 K/uL Mean Platelet Volume 10.2 fL 10.4 fL Neutrophils (%) (Auto) 64.0 % 61.8 % Lymphocytes (%) (Auto) 26.0 % 25.6 % Monocytes (%) (Auto) 7.9 % 9.8 % Eosinophils (%) (Auto) 1.1 % 2.1 % Basophils (%) (Auto) 0.7 % 0.5 % Neutrophils # (Auto) 8.06 K/uL 5.12 K/uL Lymphocytes # (Auto) 3.27 K/uL 2.12 K/uL Monocytes # (Auto) 1.00 K/uL 0.81 K/uL Eosinophils # (Auto) 0.14 K/uL 0.17 K/uL Basophils # (Auto) 0.09 K/uL 0.04 K/uL RDW Standard Deviation 49.1 fL 49.7 fL RDW Coefficient of Variation 14.4 % 14.5 % Immature Granulocyte % (Auto) 0.3 % 0.2 % Immature Granulocyte # (Auto) 0.04 K/uL 0.02 K/uL Prothrombin Time 10.7 SECONDS Prothromb Time International Ratio 1.0 Activated Partial Thromboplast Time 27.1 SECONDS Partial Thromboplastin Ratio 1.0 Sodium Level 137 mmol/L 143 mmol/L Potassium Level 3.4 mmol/L 4.0 mmol/L Chloride Level 103 mmol/L 112 mmol/L Carbon Dioxide Level 23 mmol/L 22 mmol/L Anion Gap 11.0 mmol/L 9.0 mmol/L Blood Urea Nitrogen 10 mg/dl 8 mg/dl Creatinine 0.80 mg/dl 0.60 mg/dl Est Creatinine Clear Calc Drug Dose 56.5 ml/min 75.4 ml/min Estimated GFR () 94.2 116.4 Estimated GFR (Non- 81.3 100.5 BUN/Creatinine Ratio 12.0 13.6 Random Glucose 72 mg/dl 67 mg/dl Calcium Level 9.6 mg/dl 8.5 mg/dl Magnesium Level 2.3 mg/dl Total Bilirubin 0.6 mg/dl Aspartate Amino Transf (AST/SGOT) 23 U/L Alanine Aminotransferase (ALT/SGPT) 21 U/L Alkaline Phosphatase 94 U/L Total Protein 8.0 gm/dl Albumin 3.9 gm/dl Globulin 4.1 gm/dl Albumin/Globulin Ratio 1.0 Lipase 239 U/L Ethyl Alcohol mg/dL < 3.0 mg/dl Impression Patient is a 57 year old female w abd pain symptoms (epigastric radiating to back), outpt CT abd/pelvis evidence of pancreatitis and 1mth ago had elevation of Lipase. Currently asymptomatic, and admission labs w/o abnormalities in LFTs or Lipase. She is a smoker and does drink most night (2 beers - total 10 drinks a week). Denies any NSAIDs use. May have chronic pancreatitis since symptoms started 2 yrs ago, and possible gastritis as well. Plan - Advanced to CL diet w maintaining LR IVF @ 150ml/hr. If tolerating PO intake, may decrease or even Heplock IV. - DC tomorrow if continues to do well - Continue Protonix 40mg BID - Strict ETOH cessation, and advised to stop tobacco use as well - May refer back to GI clinic if abd pain persist for possible EGD +/- EUS evaluation in outpt setting. - Encouraged to discuss w PCP for management of anxiety. Attg addendum: I interviewed and examined pt, reviewed chart and labs. Pt with chronic abd pain, had CT as outpt concerning for pancreatitis; lipase elevated in April. Agree with recommendations as above - empiric PPI trial , diet as tolerated, alcohol cessation. Consider EGD/EUS as outpt.
--- NOTE | 2017-06-03 14:08 | Progress Note ---
Medicine Progress Note Date & Time of Visit: Jun 03, 2017 at 13:50. Subjective Pt was seen and examined Sitting in chair comfortable with no distress Pt said that she feels fine she denies any abdominal pain she tolerated clear liquid diet denies any chest pain, palpitation, dizziness, N/V and SOB Objective Last 8 Hrs Date Time Temp Pulse Resp B/P (MAP) Pulse Ox O2 Delivery O2 Flow Rate FiO2 06/03/17 11:52 36.3 88 15 119/75 (90) 98 Room Air 06/03/17 09:45 Room Air 06/03/17 07:37 Room Air 06/03/17 07:28 36.7 78 14 126/78 (94) 96 Room Air Physical Exam: General- No acute distress Head- atraumatic Eyes- PERRL, EOMI ENT- oropharynx clear Neck- supple, no JVD Lungs- clear to auscultation Heart- regular rhythm Abdomen- normal bowel sounds, soft Extremities- no calf tenderness Neuro- alert, oriented x 3; PERRL, EOMI Skin- warm & dry Laboratory Results: Last 24 Hours Test 06/02/17 22:22 06/03/17 05:47 White Blood Count 12.60 K/uL 8.28 K/uL Red Blood Count 3.94 M/uL 3.67 M/uL Hemoglobin 13.1 g/dL 11.2 g/dL Hematocrit 36.7 % 34.7 % Mean Corpuscular Volume 93.1 fL 94.6 fL Mean Corpuscular Hemoglobin 33.2 pg 30.5 pg Mean Corpuscular Hemoglobin Concent 35.7 g/dl 32.3 g/dl Platelet Count 311 K/uL 303 K/uL Mean Platelet Volume 10.2 fL 10.4 fL Neutrophils (%) (Auto) 64.0 % 61.8 % Lymphocytes (%) (Auto) 26.0 % 25.6 % Monocytes (%) (Auto) 7.9 % 9.8 % Eosinophils (%) (Auto) 1.1 % 2.1 % Basophils (%) (Auto) 0.7 % 0.5 % Neutrophils # (Auto) 8.06 K/uL 5.12 K/uL Lymphocytes # (Auto) 3.27 K/uL 2.12 K/uL Monocytes # (Auto) 1.00 K/uL 0.81 K/uL Eosinophils # (Auto) 0.14 K/uL 0.17 K/uL Basophils # (Auto) 0.09 K/uL 0.04 K/uL RDW Standard Deviation 49.1 fL 49.7 fL RDW Coefficient of Variation 14.4 % 14.5 % Immature Granulocyte % (Auto) 0.3 % 0.2 % Immature Granulocyte # (Auto) 0.04 K/uL 0.02 K/uL Prothrombin Time 10.7 SECONDS Prothromb Time International Ratio 1.0 Activated Partial Thromboplast Time 27.1 SECONDS Partial Thromboplastin Ratio 1.0 Sodium Level 137 mmol/L 143 mmol/L Potassium Level 3.4 mmol/L 4.0 mmol/L Chloride Level 103 mmol/L 112 mmol/L Carbon Dioxide Level 23 mmol/L 22 mmol/L Anion Gap 11.0 mmol/L 9.0 mmol/L Blood Urea Nitrogen 10 mg/dl 8 mg/dl Creatinine 0.80 mg/dl 0.60 mg/dl Est Creatinine Clear Calc Drug Dose 56.5 ml/min 75.4 ml/min Estimated GFR () 94.2 116.4 Estimated GFR (Non- 81.3 100.5 BUN/Creatinine Ratio 12.0 13.6 Random Glucose 72 mg/dl 67 mg/dl Calcium Level 9.6 mg/dl 8.5 mg/dl Magnesium Level 2.3 mg/dl Total Bilirubin 0.6 mg/dl Aspartate Amino Transf (AST/SGOT) 23 U/L Alanine Aminotransferase (ALT/SGPT) 21 U/L Alkaline Phosphatase 94 U/L Total Protein 8.0 gm/dl Albumin 3.9 gm/dl Globulin 4.1 gm/dl Albumin/Globulin Ratio 1.0 Lipase 239 U/L Ethyl Alcohol mg/dL < 3.0 mg/dl Assessment & Plan Intermittent Epigastric Abdominal Pain Pt said that her pain seems to occurs at work only CT abd done outpatient showed finding compartible with acute interstitial pancreatitis. No peripancreatic fluid collections Possible related to pancreatitis due to alcohol Denies any abdominal pain currently Tolerated clear liquid diet GI on board, recommended supportive management Case discussed with GI and they don't plan to do any scope EGD can be done as an outpatient for gastritis Continue PPI will advanced diet to full liquid Hypokalemia. Replaced Malnutrition low BMI Advised pt to increase protein in her diet tobacco abuse Counseling on tobacco cessation Alcohol abuse Counseling on alcohol cessation Anxiety/Mood disorder On Cymbalta and Wellbutrin DVT px on lovenox subq CODE STATUS FULL CODE Consultants: Gastro Current Inpatient Medications: Current Inpatient Medications Medications (Trade) Dose Ordered Sig/Marisa Route Start Time Stop Time Status Last Admin Dose Admin Acetaminophen (Tylenol Tab) 650 mg Q4H PRN PO 06/02/17 21:45 07/02/17 21:44 Nicotine (Nicoderm Cq 14MG Patch) 1 patch QAM TD 06/04/17 08:00 07/04/17 07:59 Miscellaneous (Remove Nicoderm Patch) 1 ea HS N/A 06/03/17 21:00 07/03/17 20:59 Buspirone HCl (Buspar Tab) 10 mg BID PO 06/03/17 08:00 07/03/17 07:59 06/03/17 08:35 10 MG Duloxetine HCl (Cymbalta Cap) 60 mg HS PO 06/03/17 21:00 07/03/17 20:59 Multivitamins/ Minerals (Multivitamin W/ Minerals Tab) 1 tab QAM PO 06/03/17 08:00 07/03/17 07:59 06/03/17 08:36 1 TAB Lorazepam (Ativan Inj) PRN Dosing -Active Protocol Q1H PRN IV 06/02/17 22:30 07/02/17 22:29 Oxycodone/ Acetaminophen (Percocet 5-325mg Tab) 1 tab Q6H PRN PO 06/02/17 22:45 06/16/17 22:44 Tramadol HCl (Ultram Tab) not relieved by tylenol @ Q6H PRN PO 06/02/17 22:45 07/02/17 22:44 06/03/17 09:11 50 MG Gabapentin (Neurontin Cap) 400 mg Q8H PO 06/03/17 20:00 06/04/17 12:01 Gabapentin (Neurontin Cap) 400 mg Q12H PO 06/04/17 20:00 06/05/17 08:01 Gabapentin (Neurontin Cap) 400 mg Q24H PO 06/05/17 08:00 06/05/17 08:01 Pantoprazole Sodium 40 mg/ Syringe 10 ml @ 5 mls/min BID@0900,2100 IV 06/03/17 09:00 07/03/17 08:59 06/03/17 08:39 5 MLS/MIN Lactated Ringer's 1,000 ml @ 150 mls/hr Q6H40M IV 06/03/17 00:15 07/03/17 00:14 06/03/17 02:01 60 MLS/HR Morphine Sulfate (MoRPHine SULFATE INJ) 2 mg Q4H PRN IV 06/03/17 00:15 06/17/17 00:14 Thiamine HCl (Vitamin B-1 Tab) 100 mg QAM PO 06/03/17 08:00 07/03/17 07:59 06/03/17 08:37 100 MG Multivitamins (Multivitamin Tab) 1 tab QAM PO 06/03/17 08:00 07/03/17 07:59 06/03/17 08:37 1 TAB Folic Acid (Folvite Tab) 1 mg QAM PO 06/03/17 08:00 07/03/17 07:59 06/03/17 08:36 1 MG Enoxaparin Sodium (Lovenox Inj) 30 mg DAILY SQ 06/03/17 08:00 07/03/17 07:59 06/03/17 08:39 30 MG
[2017-06-03 14:55] VITALS: BP 132/88; PULSE 88; TEMP 36.3; O2SAT 100
[2017-06-03 15:14] VITALS: BP 132/88; PULSE 88; TEMP 36.3; O2SAT 100
[2017-06-03 18:23] VITALS: BP 132/88; PULSE 88; TEMP 36.3; O2SAT 100
[2017-06-03] MEDS ORDERED: BNT20 PO (18:37)
--- NOTE | 2017-06-03 18:46 | Discharge Instructions ---
Discharge Instructions Date of Service Jun 03, 2017. Admission Reason for Admission: Acute Pancreatitis Discharge Discharge Diagnosis / Problem: Pancreatitis, Tobacco abuse, Alcohol abuse, Anxiety Discharge Goals Goal(s): Decrease discomfort, Increase independence, Improve disease control Activity Recommendations Activity Limitations: resume your previous activity (as tolerated) . Instructions / Follow-Up Instructions / Follow-Up Follow up with your primary care provider Dr. Michaels on 06/09 @ 9:35 am Follow up with gastro as an outpatient if your symptoms reoccur ( your physician will arrange for the referral) Counseling on alcohol cessation Counseling on tobacco abuse Current Hospital Diet Patient's current hospital diet: Low Fiber Diet Discharge Diet Recommended Diet: Regular Diet (advanced as tolerated) Pending Studies Studies pending at discharge: no Medical Emergencies . Who to Call and When: Medical Emergencies: If at any time you feel your situation is an emergency, please call 911 immediately. . Non-Emergent Contact Non-Emergency issues call your: Primary Care Provider Call Non-Emergent contact if: you have any medication questions . . "Provider Documentation" section prepared by Demetris Blackburn. . VTE Core Measure Inpt VTE Proph given/why not?: Enoxaparin (Lovenox)SQ
[2017-06-03] MEDS ORDERED: PANTOprazole SOD 40 MG TAB PO SCH (20:00)
[2017-06-03] MEDS ORDERED: DICYCLOMINE HCL 20 MG TAB PO SCH (20:00)
[2017-06-03] MEDS ORDERED: GABAPENTIN 400MG Q8H DOSE PO SCH (20:00)
[2017-06-03] MEDS ORDERED: DULOXETINE HCL 60 MG CAP PO SCH (21:00)
[2017-06-04] MEDS ORDERED: NICOTINE 14 MG/24 HR TDSY TD SCH (08:00)
[2017-06-04] MEDS ORDERED: GABAPENTIN 400MG Q12H DOSE PO SCH (20:00)
--- NOTE | 2017-06-04 20:16 | Discharge Summary ---
Discharge Summary Date of Service Jun 04, 2017. Discharge Summary Admission Date: Jun 02, 2017 at 21:21 Discharge Date: Jun 03, 2017 Discharge Disposition: Home Principal Diagnosis: Pancreatitis Secondary Diagnoses/Problems: Tobacco abuse Alcohol abuse Anxiety Consultations: Gastro Medication Reconciliation New Medications: Dicyclomine HCl (Dicyclomine HCl) 20 Mg Tab 20 MG PO BID for 10 Days, TAB Continued Medications: Buspirone Hcl (Buspirone Hcl) 5 Mg Tab 2 TAB PO BID for 30 Days, #60 TAB Calcium (Caltrate) 600 Mg Tab 600 MG PO BID, TAB Cyclobenzaprine Hcl (Flexeril) 10 Mg Tab 10 MG PO prn at hs PRN Duloxetine Hcl (Cymbalta) 60 Mg Cap 60 MG PO HS, CAP Gabapentin (Neurontin) 300 Mg Cap 600 MG PO HS, CAP Meloxicam (Mobic) 7.5 Mg Tab 15 MG PO DAILY, TAB Multiple Vitamins W/ Minerals (Centrum Silver Adult 50+) 1 Tab Tab 1 TAB PO QAM Pantoprazole (Protonix) 40 Mg Tab 40 MG PO BID, #30 TAB Polyethylene Glycol 3350 (Bulk (Polyethylene Glycol 3350) 1 Pow Pow 17 GM PO DAILY PRN for Constipation, #255 GM Tramadol (Ultram) 50 Mg Tab 50-100 MG PO TID PRN for Pain, TAB Admission Information HPI (per Admitting provider): CHIEF COMPLAINT: Abdominal pain. Abnormal CAT scan. HISTORY OF PRESENT ILLNESS: History is obtained from the patient and records. Medical history is significant for daily alcohol intake, ongoing tobacco abuse, arthritis. anxiety/mood dso. Recent confinement January 2017 under Orthopedic service for back surgery. For about 2 years now, the patient has been having intermittent achy upper abdominal pain going to the back worse with stress at work. No relation to food intake. Patient notes improvement of pain when she is at home. She got back to work last month. Increasing anxiety, epigastric pain going to the back. Seen at PCP's office. Impression was adjustment/anxiety disorder. Patient denies depression. Patient was prescribed lorazepam and Buspar. Some improvement of symptoms. Outpatient lipase from last month was noted to be 96. She was told to stop drinking alcohol. Repeat lipase contemplated after 1 month. Seen at PCP's office yesterday for worsening epigastric with mid back pain with nausea, no vomiting, no emesis, no inordinate weight loss as per the patient. Seen at PCP's office. PCP worried about pancreatitis and gastritis. Started on PPI b.i.d., counseled to stop drinking. Outpatient CAT scan showed acute interstitial pancreatitis, no fluid collection, thickened posterior stomach, likely active inflammation, mild distention of the appendix; indeterminate density in the partially imaged lingula. Patient sent to the hospital by PCP as a direct admission. Physical Exam (per Admitting): PHYSICAL EXAMINATION: VITAL SIGNS: Blood pressure was noted to be 130/80, pulse rate 86, RR 18, temperature 36.6, sats 92 on room air. GENERAL: Noted to be comfortable, slightly anxious, no respiratory distress. hyposthenic. SKIN: Normal color. HEENT: [place] palpebral conjunctiva. Dry mucosa. NECK: No JVD. Supple. CHEST: Clear to auscultation. HEART: Regular rate and rhythm. ABDOMEN: Epigastric tenderness. EXTREMITIES: No edema. No tenderness. NEUROLOGIC: No gross focality. Hospital Course Intermittent Epigastric Abdominal Pain Pt said that her pain seems to occurs at work only CT abd done outpatient showed finding compartible with acute interstitial pancreatitis. No peripancreatic fluid collections Possible related to pancreatitis due to alcohol Denies any abdominal pain currently Tolerated clear liquid diet GI on board, recommended supportive management Case discussed with GI and they don't plan to do any scope EGD can be done as an outpatient for gastritis Continue PPI will advanced diet to full liquid Hypokalemia. Replaced Malnutrition low BMI Advised pt to increase protein in her diet tobacco abuse Counseling on tobacco cessation Alcohol abuse Counseling on alcohol cessation Anxiety/Mood disorder On Cymbalta and Wellbutrin DVT px on lovenox subq CODE STATUS FULL CODE Total time spent on discharge = 35 minutes This includes examination of the patient, discharge planning, medication reconciliation, and communication with other providers. Discharge Instructions Discharge Instructions Date of Service Jun 03, 2017. Admission Reason for Admission: Acute Pancreatitis Discharge Discharge Diagnosis / Problem: Pancreatitis, Tobacco abuse, Alcohol abuse, Anxiety Discharge Goals Goal(s): Decrease discomfort, Increase independence, Improve disease control Activity Recommendations Activity Limitations: resume your previous activity (as tolerated) . Instructions / Follow-Up Instructions / Follow-Up Follow up with your primary care provider Dr. Michaels on 06/09 @ 9:35 am Follow up with gastro as an outpatient if your symptoms reoccur ( your physician will arrange for the referral) Counseling on alcohol cessation Counseling on tobacco abuse Current Hospital Diet Patient's current hospital diet: Low Fiber Diet Discharge Diet Recommended Diet: Regular Diet (advanced as tolerated) Pending Studies Studies pending at discharge: no Medical Emergencies . Who to Call and When: Medical Emergencies: If at any time you feel your situation is an emergency, please call 911 immediately. . Non-Emergent Contact Non-Emergency issues call your: Primary Care Provider Call Non-Emergent contact if: you have any medication questions . . "Provider Documentation" section prepared by Demetris Blackburn. . VTE Core Measure Inpt VTE Proph given/why not?: Enoxaparin (Lovenox)SQ Additional Copies To Sybil Michaels D.O.
[2017-06-05] MEDS ORDERED: GABAPENTIN 400MG X1 DOSE PO SCH (08:00)
== END 2017-06-03 19:25 | disposition home or self-care (01) | DRG 439 ==
LOC: C.4E 21:21
PROVIDERS: ADMIT Internal Medicine; ATTEND Internal Medicine
DX: K85.20 Alcohol induced acute pancreatitis without necrosis or infection (principal); E46 Unspecified protein-calorie malnutrition; Z68.1 Body mass index [BMI] 19.9 or less, adult; E87.6 Hypokalemia; F10.20 Alcohol dependence, uncomplicated; F17.200 Nicotine dependence, unspecified, uncomplicated; F41.9 Anxiety disorder, unspecified; F39 Unspecified mood [affective] disorder; M19.90 Unspecified osteoarthritis, unspecified site; Z79.1 Long term (current) use of non-steroidal anti-inflammatories (NSAID); Z79.899 Other long term (current) drug therapy; Z88.0 Allergy status to penicillin; Z82.49 Family history of ischemic heart disease and other diseases of the circulatory system

== ENCOUNTER 2017-10-28 07:07 | Inpatient (IN) | payer BC ==
[2017-10-28] VITALS (8 sets, daily range): BP systolic 95–132; BP diastolic 62–76; PULSE 74–95; TEMP 36.6–37; O2SAT 91–100; Ht 157.5 cm; Wt 47.7 kg
[~2017-10-28] VITALS: Ht 157.5 cm; Wt 47.7 kg
[~2017-10-28 07:07] MED LIST changes: +CALC500C70 PO; -CALCTAB5 PO; -CYCL-259 PO; +CYCL10TA6 PO; -GABA300C19 PO; +LACTATED RINGER'S 1000ML 1,000 ML IV SCH; +POLY1POW2 PO; +PRLSR20 PO; -RXC5 PO; +VANCOMYCIN 1GM/270ML NSS 270 ML IV SCH
[2017-10-28] MEDS ORDERED: MEPERIDINE HCL 25 MG/ML CARP IV PRN (07:30)
[2017-10-28] MEDS ORDERED: ATROPINE SULFATE 0.1 MG/ML 5ML SYR IV PRN (07:30)
[2017-10-28] MEDS ORDERED: HYDROmorphone INJ 1 MG/ML SYR IV PRN (07:30)
[2017-10-28] MEDS ORDERED: FENTANYL CITRATE INJ 50 MCG/1 ML 2 ML VIAL IV PRN (07:30)
[2017-10-28] MEDS ORDERED: EpHEDrine SULFATE INJ 50 MG/ML AMP IV PRN (07:30)
[2017-10-28] MEDS ORDERED: LABETALOL HCL IV 5 MG/ML 20ML IV PRN (07:30)
[2017-10-28] MEDS ORDERED: ONDANSETRON INJ 2 MG/ML 2 ML VIAL IV PRN ×2 (07:30→12:45)
--- NOTE | 2017-10-28 10:15 | History and Physical ---
History & Physical Date Oct 28, 2017. Chief Complaint Back and leg pain History of Present Illness The patient is a 57 year old female with complaints of back and leg pain Past Medical/Surgical History Medical Problems: (1) Lumbar stenosis with neurogenic claudication (2) Pancreatitis Additional History Hepatic Disease: No Endocrine Disorder: No Kidney Disease: No Hypertension: No Heart Disease: No Bleeding Tendencies: No Infectious Diseases: No Allergies Coded Allergies: Penicillins (Verified Allergy, Mild, RASH, 10/28/17) Home Medications Scheduled Buspirone Hcl (Buspirone Hcl), 2 TAB PO BID Calcium/Vitamin D (Os-Avinash 500 Plus D), 1 TAB PO BID Duloxetine Hcl (Cymbalta), 60 MG PO HS Gabapentin (Neurontin), 600 MG PO HS Multiple Vitamins W/ Minerals (Centrum Silver Adult 50+), 1 TAB PO QAM Omeprazole (Prilosec), 20 MG PO BID Scheduled PRN Cyclobenzaprine Hcl (Flexeril), 10 MG PO TID PRN for Muscle Spasms Polyethylene Glycol 3350 (Bulk (Polyethylene Glycol 3350), 17 GM PO DAILY PRN for Constipation Tramadol (Ultram), 50-100 MG PO TID PRN for Pain Physical Examination Skin: warm/dry, no rash Eyes: normal inspection, EOMI, sclerae normal ENT: normal ENT inspection, pharynx normal Head: normocephalic, atraumatic Neck: supple, no adenopathy, trachea midline Respiratory/Chest: lungs clear, normal breath sounds, no respiratory distress Cardiovascular: regular rate, rhythm, no edema, no murmur Abdomen / GI: normal bowel sounds, non tender Back: normal inspection Extremities: normal inspection, normal range of motion Neurologic/Psych: no motor/sensory deficits, alert, normal reflexes, oriented x 3 Diagnosis Lumbar spinal stenosis Plan of Treatment Removal hardware L4 5 L5-S1. Decompression fusion L3 4.
[2017-10-28] MEDS ORDERED: MIDAZOLAM HCL 1 MG/ML 2ML VIAL ONE (10:29)
[2017-10-28] MEDS ORDERED: FENTANYL CITRATE INJ 50 MCG/1 ML 2 ML VIAL ONE ×3 (10:29→11:11)
[2017-10-28] MEDS ORDERED: BACITRACIN 50000 UNIT VIAL ONE (10:39)
[2017-10-28] MEDS ORDERED: BUPIVACAINE/EPINEPHRINE 0.5% MPF 1:200,000 30 ML VIAL ONE (10:39)
[2017-10-28] MEDS ORDERED: HYDROmorphone INJ 2 MG/ML SYR/VIAL ONE ×3 (11:11→12:40)
[2017-10-28] MEDS ORDERED: DEXAMETHASONE SOD INJ 4 MG/ML VIAL ONE (12:31)
[2017-10-28] MEDS ORDERED: ROCURONIUM BROMIDE 10 MG/ML 5 ML VIAL IV ONE (12:31)
[2017-10-28] MEDS ORDERED: LIDOCAINE HCL 2% 2 ML VIAL (20MG/ML) ONE (12:31)
[2017-10-28] MEDS ORDERED: PROPOFOL IV EMULSION 10 MG/ML 20 ML VIAL IV ONE (12:31)
[2017-10-28] MEDS ORDERED: ONDANSETRON INJ 2 MG/ML 2 ML VIAL ONE (12:31)
[2017-10-28] MEDS ORDERED: FLOSEAL HEMOSTATIC MATRIX 10ML TOP ONE (12:37)
[2017-10-28] MEDS ORDERED: SODIUM CHLORIDE 0.9% 1000ML 1,000 ML IV SCH (12:42)
[2017-10-28] MEDS: SODIUM CHLORIDE 0.9% 1000ML 1,000 ML IV SCH ×2 (12:42→19:03)
--- NOTE | 2017-10-28 12:42 | [facility] Operative Report ---
Operative Report Operative Date Oct 28, 2017. Pre-Operative Diagnosis Lumbar Spinal Stenosis Post-Operative Diagnosis Lumbar Spinal Stenosis Procedure(s) Performed #1 removal instrumentation L4 5 L5-S1. #2 expiration of fusion L4 5 L5-S1. #3 lumbar decompression medial facetectomies foraminotomies L3 4. #4 posterior spinal fusion L3 4. #5 placement posterior instrumentation L3 4. #Interbody fusion L3 4. #7 placement peek cage 7 x 22 mm L3 4. #8 placement of locally harvested morcellized autograft in the posterior lateral gutters. #9 placement infuse collagen sponge combined with Master graft in the posterior gutters and osteo-lamp bone graft in the interbody space. Surgeon Dr. Ochoa Analyst Business Analysis Surgeon(s) Ara Mccoy PA-C Estimated Blood Loss 150 Findings Severe spinal stenosis Specimens A: Explanted spinal hardware Anesthesia Type General Description of Procedure Patient was met with preoperatively case discussed all questions addressed. After informed consent obtained patient was taken to the operative suite underwent intubation and placed in a prone position on the Trung table on top of the Giorgio frame. All bony prominences were well-padded eyes inspected to ensure no external pressure placed upon them. This point the lumbar spine was prepped and draped in the normal sterile fashion. Sharp dissection with the assistance of Bovie cautery was performed onto an exposing the lamina and transverse processes of L3 and instrumentation L4 L5-S1 levels bilaterally. Then proceeded remove the hardware bilaterally at L4-L5 and S1 explored the fusion mass noting it to be intact. Then performed a complete laminectomy of L3 including medial facet was foraminotomies addressing severe stenosis. Pedicle screws and placed in L3 and L4 bilaterally with the assistance of fluoroscopy and the appropriately sized wilber placed. Through a transforaminal approach on the left complete discectomy was performed endplates graded to subcortical bleeding bone in a 11 x 22 mm peek cage filled with osteal bone graft tapped in position. The rods were then compressed locked and final position bilaterally. The transverse processes of L3 and L4 bur to subcortical bleeding bone. Infuse collagen sponge mass graft locally harvested morcellized Was placed posterior gutters. A 10 round LAI drain inserted. Incision was then closed with 1 Vicryl in the fascia 2-0 Vicryl subcutaneously and 4-0 Monocryl for final skin closure Steri-Strips dressings placed. Patient will continue PACU stable condition. Please note Ara Allen was present at the entire procedure involved in patient positioning complex portions of the surgery and final skin closure. I attest to the content of the Intraoperative Record and any orders documented therein. Any exceptions are noted below.
--- NOTE | 2017-10-28 12:43 | DIAGNOSTIC IMAGING REPORT ---
LUMBAR SPINE 2 OR 3 VIEW CLINICAL HISTORY: L4-S1 REMOVE HARDWARE/L3-4 DECOMPRESSION/FUSION COMPARISON STUDY: January 2017 FINDINGS: 2 intraoperative fluoroscopic spot images are provided for interpretation. 19 seconds of fluoroscopic time was utilized. There are postsurgical changes of an L3-4, L4-5, and L5-S1 discectomy and interbody fusions. There is posterior pedicle screw fixation at the L3-4 level. IMPRESSION: Intraoperative radiographs with postsurgical changes as described above Electronically signed by: Mauri Power M.D. 10/28/2017 12:42 PM Dictated Date/Time: 10/28/2017 12:40 PM
[2017-10-28] MEDS ORDERED: MAGNESIUM HYDROXIDE SUSP 30 ML UDC PO PRN (12:45)
[2017-10-28] MEDS ORDERED: ESMOLOL HCL 10 MG/ML 10 ML VIAL ONE (12:45)
[2017-10-28] MEDS ORDERED: DO NOT ADMINISTER PNEUMOCOCCAL VACCINE PRN (12:45)
[2017-10-28] MEDS ORDERED: METOPROLOL TARTRATE 1 MG/ML VIAL ONE (12:45)
[2017-10-28] MEDS ORDERED: FAMOTIDINE 20 MG TAB PO PRN (12:45)
[2017-10-28] MEDS ORDERED: CYCLOBENZAPRINE HCL 10 MG TAB PO PRN (12:45)
[2017-10-28] MEDS ORDERED: GLYCOPYRROLATE INJ 0.2 MG/ML VIAL ONE (12:45)
[2017-10-28] MEDS ORDERED: NALOXONE HCL 0.4 MG/1 ML VIAL/CARP IV PRN ×2 (12:45)
[2017-10-28] MEDS ORDERED: ACETAMINOPHEN IV 100 ML IV PRN (12:45)
[2017-10-28] MEDS ORDERED: ALUMINUM/MAGNESIUM SUSP 30 ML UDC PO PRN (12:45)
[2017-10-28] MEDS ORDERED: hydrOXYzine HCL 25 MG TAB PO PRN (12:45)
[2017-10-28] MEDS ORDERED: KETOROLAC TROMETHAMINE 30 MG/ML VIAL ONE (12:45)
[2017-10-28] MEDS ORDERED: ACETAMINOPHEN 500 MG TAB PO PRN (12:45)
[2017-10-28] MEDS ORDERED: DO NOT ADMINISTER FLU VACCINE PRN (12:45)
[2017-10-28] MEDS ORDERED: LORAZEPAM INJ 0.5 MG in SYRINGE 0 ML IV PRN (12:45)
[2017-10-28] MEDS ORDERED: TRAMADOL HCL 50 MG TAB PO PRN (12:45)
[2017-10-28] MEDS ORDERED: BISACODYL 10 MG SUPP PR PRN (12:45)
[2017-10-28] MEDS ORDERED: METOCLOPRAMIDE HCL INJ 5 MG/ML 2 ML VIAL IV PRN (12:45)
[2017-10-28] MEDS ORDERED: NEOSTIGMINE METHYLSULFATE 1 MG/ML 10ML VIAL ONE (12:45)
[2017-10-28] MEDS ORDERED: PROMETHAZINE HCL INJ 12.5 MG in SODIUM CHLORIDE 0.9% 50ML 50 ML IV PRN (12:45)
[2017-10-28] MEDS ORDERED: SOD PHOSPHATE/SOD BIPHOSPHATE ENEMA 132 ML BTL PR PRN (12:45)
[2017-10-28] MEDS ORDERED: HYDROmorphone HCL 0.5MG/ML 50 ML CASSETTE ONE (12:58)
[2017-10-28] MEDS: HYDROmorphone HCL 0.5MG/ML 50 ML CASSETTE IV PRN ×3 (13:06→23:34)
--- NOTE | 2017-10-28 14:12 | Anesthesiology Progress Note ---
Anesthesia Post Op Note Date & Time Oct 28, 2017 at 14:12 Vital Signs Pain Intensity: 0 Vital Signs Past 12 Hours Date Time Temp Pulse Resp B/P (MAP) Pulse Ox O2 Delivery O2 Flow Rate FiO2 10/28/17 13:53 74 12 100 10/28/17 13:53 73 12 10/28/17 13:48 72 12 100 10/28/17 13:48 72 12 10/28/17 13:46 110/69 10/28/17 13:43 75 8 100 10/28/17 13:43 75 8 10/28/17 13:41 113/76 10/28/17 13:40 36.4 74 12 113/76 100 Nasal Cannula 2 10/28/17 13:38 76 6 100 10/28/17 13:38 76 6 10/28/17 13:37 70 12 10/28/17 13:37 74 12 100 10/28/17 13:36 125/72 10/28/17 13:32 72 14 10/28/17 13:32 71 14 100 10/28/17 13:31 130/75 10/28/17 13:27 77 10 100 10/28/17 13:27 77 10 10/28/17 13:26 124/75 10/28/17 13:22 82 12 99 10/28/17 13:22 83 12 10/28/17 13:21 126/75 10/28/17 13:17 80 10 132/77 100 10/28/17 13:17 79 10 10/28/17 13:12 81 10 10/28/17 13:12 80 10 100 10/28/17 13:11 131/74 10/28/17 13:07 85 16 10/28/17 13:07 84 16 100 10/28/17 13:06 88 16 10/28/17 13:06 88 16 138/83 100 10/28/17 13:01 87 16 10/28/17 13:01 87 16 139/80 100 10/28/17 12:57 146/80 10/28/17 12:56 89 16 99 10/28/17 12:56 89 16 10/28/17 12:56 36.1 91 16 146/80 98 Oxymask 10 10/28/17 08:21 37.0 95 20 132/76 96 Room Air Notes Mental Status: alert / awake / arousable, participated in evaluation Pt Amnestic to Procedure: Yes Nausea / Vomiting: adequately controlled Pain: adequately controlled Airway Patency, RR, SpO2: stable & adequate BP & HR: stable & adequate Hydration State: stable & adequate Anesthetic Complications: no major complications apparent
[2017-10-28] MEDS: CLINDAMYCIN IV 600 MG in DEXTROSE 5% 50ML 50 ML IV SCH (16:02)
[2017-10-28] MEDS: NICOTINE 21 MG/24 HR TDSY TD SCH (18:11)
[2017-10-28] MEDS: DOCUSATE SODIUM/SENNA 50/8.6MG TAB PO SCH (22:02)
[2017-10-28] MEDS: PANTOprazole SOD 40 MG TAB PO SCH (22:02)
[2017-10-28] MEDS: GABAPENTIN 600 MG TAB PO SCH (22:03)
[2017-10-28] MEDS: DULOXETINE HCL 60 MG CAP PO SCH (22:03)
[2017-10-29] MEDS: CLINDAMYCIN IV 600 MG in DEXTROSE 5% 50ML 50 ML IV SCH (00:03)
[2017-10-29] MEDS: SODIUM CHLORIDE 0.9% 1000ML 1,000 ML IV SCH (02:19)
[2017-10-29 03:00] VITALS: BP 119/72; PULSE 80; TEMP 36.6; O2SAT 97
[2017-10-29] MEDS ORDERED: NURSING DECISION MEDICATION ORDER SCH (05:30)
[2017-10-29] MEDS ORDERED: HYDROmorphone INJ 0.5 MG/0.5 ML SYR IV PRN (06:00)
[2017-10-29] MEDS ORDERED: DC PCA SCH (06:00)
[2017-10-29 07:24] VITALS: BP 107/68; PULSE 80; TEMP 36.8; O2SAT 99
[2017-10-29 07:26] LABS: BASO % 0.2 %; BASO ABS # 0.02 K/uL (0-0.2); EOS % 0.2 %; EOS ABS # 0.02 K/uL (0-0.5); HEMATOCRIT 26.5 % (37-47); HEMOGLOBIN 9.1 g/dL (12.0-16.0); IG# 0.02 K/uL (0.00-0.02); LYMPH % 20.5 %; LYMPH ABS # 2.41 K/uL (1.2-3.4); MEAN CELL VOLUME 96.7 fL (80-100); MEAN CORPUSCULAR HEMOGLOBIN 33.2 pg (25-34); MEAN CORPUSCULAR HGB CONC 34.3 g/dl (32-36); MEAN PLATELET VOLUME 10.2 fL (7.4-10.4); MONO % 11.7 %; MONO ABS # 1.38 K/uL (0.11-0.59); NEUT % 67.2 %; NEUT ABS # 7.93 K/uL (1.4-6.5); PLATELET COUNT 199 K/uL (130-400); RED CELL DISTRIBUTION WIDTH CV 13.3 % (11.5-14.5); RED CELL DISTRIBUTION WIDTH SD 46.5 fL (36.4-46.3); WHITE BLOOD COUNT 11.78 K/uL (4.8-10.8)
[2017-10-29] MEDS ORDERED: NICO21DI4 TD (07:46)
[2017-10-29] MEDS ORDERED: RXC5 PO (07:46)
--- NOTE | 2017-10-29 07:47 | Discharge Instructions ---
Discharge Instructions Date of Service Oct 29, 2017. Admission Reason for Admission: Lumbar Spinal Stenosis L4-5, L5-S1 Discharge Discharge Diagnosis / Problem: lumbar stenosis Discharge Goals Goal(s): Improve function Activity Recommendations Activity Limitations: per Instructions/Follow-up section . Instructions / Follow-Up Instructions / Follow-Up ACTIVITY RECOMMENDATIONS: SELF CARE INSTRUCTIONS AFTER THORACIC/LUMBAR FUSIONS 1. You may walk to your tolerance. It is good exercise for your legs and back. Expect some back and intermittent leg aches and pains. 2. You may perform "counter-top" level activities (make a sandwich, cleve with a project, etc.). 3. No bending or lifting of more than 10 pounds or back twisting of any nature (roll like a log when turning in bed). 4. You may ride in a car for 20-30 minutes at a time. No driving until after your first visit with your doctor. 5. Frequent changes of position and restricting sitting to 30 minutes at a time will help limit the amount of back spasms and stiffness you may experience. 6. You may discontinue the use of ambulatory aids (cane, crutches, etc.) once your strength and confidence allow. 7. You may wireless internet installer the shower and let water strike your incision when you arrive home at least once daily. Do not take a tub bath, sit in a hot tub or go into a swimming pool until after your first recheck in the office. SPECIAL CARE INSTRUCTIONS: VERY IMPORTANT TO READ AND REVIEW A. Your surgical incision has been closed with a cosmetic suture under the skin that will dissolve in about 6 weeks. In 14 days, you can use a pair of clean scissors and cut the suture that is left outside of the skin at the ends of your incision. 1. The small skin tapes can be removed 7 days after surgery if they have not fallen off by that point. 2. You may keep the wound open to air as much as possible to promote healing after post-op day number 5 unless told otherwise by your doctor. 3. If you think the wound looks like it is becoming infected (redness or worsening drainage) and/or you are experiencing fever, chill or worsening back pain and muscle spasms, contact the office so that we may evaluate you as soon as possible. B. Complications are uncommon, but please contact us if you have any signs or symptoms of: 1. wound infection (fever higher than 102.5 degrees F, redness, separation of wound, drainage, or increasing pain from the incision) 2. blood clots in legs (pain, swelling, redness and warmth in legs) 3. urinary tract infection (fever higher than 102.5 degrees F, burning upon urination or increased frequency of urination) 4. nerve problems (inability to walk on your toes or heels, numbness, loss of bowel or bladder control) 5. any other symptoms that concern you C. Please call the office at if you have any concerns or questions about your operation or recovery. D. No smoking! Smoking drastically decreases the chance of a solid fusion. E. Do not take any anti-inflammatory medications (Indocin, Advil, Motrin, Aspirin, Naprosyn, etc.) as these may inhibit the chance of a solid fusion. Tylenol is okay to take for pain. MANAGING PAIN AFTER SPINAL SURGERY 1. Narcotic medication is intended for short-term use and will be provided for surgical pain. Surgical pain usually lasts for a period of 4-6 weeks. Narcotic medication includes Percocet, Vicodin, Darvocet, Tylenol #3 or Lortab. 2. Longer-term pain is more appropriately treated with non-narcotic medication such as Tylenol ES. 3. Muscle spasm is not appropriately treated with narcotics. Muscle relaxers such as Soma, Flexeril or Skelaxin can be used along with Tylenol ES. 4. Remember that we all live with some "aches and pains". This is not unusual or uncommon after an injury or as we get older. a. Back pain is expected and may include muscle spasms for 4 to 6 weeks after surgery. The pain should gradually improve. If the pain worsens for no apparent reason, please contact the office. b. Intermittent leg pain may also be experienced and should not be concerned about unless it worsens for no apparent reason. If so, please contact the office. 5. We will provide appropriate medication within the normal guidelines of their prescribed use. We will also be very cautious and aware of potential abuse and extended duration of patients' medication needs. a. Pain medications are for your comfort and to assist with sleep and rest so that the tissue can heal. They are not provided in order to return to normal activity and should not be used through the day. To do so or worsening pain at night can result from ongoing tissue damage and development of tolerance to the prescribed medicine. 6. Please allow 2-3 days to process refills. Prescriptions will not be mailed but must be picked up at the office. FOLLOW UP VISIT: Keep your scheduled follow-up appointment. Any questions, please call the office at . Current Hospital Diet Patient's current hospital diet: Regular Diet Discharge Diet Recommended Diet: Regular Diet Procedures Procedures Performed: #1 removal instrumentation L4 5 L5-S1. #2 expiration of fusion L4 5L5-S1. #3 lumbar decompression medial facetectomies foraminotomies L3 4.#4 posterior spinal fusion L3 4. #5 placement posterior instrumentationL3 4. #Interbody fusion L3 4. #7 placement peek cage 7 x 22 mm L3 4. #8placement of locally harvested morcellized autograft in the posteriorlateral gutters. #9 placement infuse collagen sponge combined with Mastergraft in the posterior gutters and osteo-lamp bone graft in the interbodyspace. Pending Studies Studies pending at discharge: no Medical Emergencies . Who to Call and When: Medical Emergencies: If at any time you feel your situation is an emergency, please call 911 immediately. . Non-Emergent Contact Non-Emergency issues call your: Primary Care Provider . "Provider Documentation" section prepared by Kodak Ochoa. . VTE Core Measure Inpt VTE Proph given/why not?: Zach Andres, KARINA's
[2017-10-29 07:58] LABS: CALCIUM 8.1 mg/dl (8.5-10.1); CREATININE 0.7 mg/dl (0.60-1.20); POTASSIUM 3.9 mmol/L (3.5-5.1)
[2017-10-29] MEDS: OXYCODONE HCL IR 5 MG TAB (IMMEDIATE RELEASE) PO PRN ×4 (08:13→21:06)
[2017-10-29] MEDS: PANTOprazole SOD 40 MG TAB PO SCH ×2 (09:13→21:02)
--- NOTE | 2017-10-29 09:19 | Clinical Documentation Query ---
EMILY Gardner : CLINICAL DOCUMENTATION QUERY Patient is a 57 year old female who underwent removal of lumbosacral instrumentation, decompression, posterior spinal and interbody fusion. H&H 06/02/17 was 13.1 g/dl and 36.7%. POD #1, repeat values are 9.1 g/dl and 26.5%. Total blood loss to date is 580 ml's. Additionally, net I/O is positive for 2,790 ml's at this time. She is being monitored with serial hematology and I/O including drain output. In your clinical opinion is this patient being managed for: ( ) Acute blood loss and hemodilutional anemia ( ) Not Agree ( ) Other explanation of clinical findings (Please Explain) ( ) Unable to determine (Please Define) ( ) Need to Discuss The medical record reflects the following clinical findings, treatment, and risk factors. Clinical Indicators: As above Treatment: She is being monitored with serial hematology and I/O including drain output Risk Factors: Acute perioperative blood losses and IVF administration Please clarify and document your clinical opinion in the progress notes and discharge summary. Terms such as "probable", "suspected", "likely", "questionable", "possible", or "still to be ruled out" are acceptable. IF IN AGREEMENT, YOU MUST DOCUMENT ABOVE DIAGNOSTIC STATEMENT IN DAILY PROGRESS NOTES AND DISCHARGE SUMMARY. This document is not part of the patient's record. Thank You, Ronni Long, JUAN [phone]
[2017-10-29] MEDS: NICOTINE 21 MG/24 HR TDSY TD SCH (10:21)
--- NOTE | 2017-10-29 10:32 | Anesthesiology Progress Note ---
Anesthesia Post Op Note Date & Time Oct 29, 2017 at 10:32 Vital Signs Vital Signs Past 12 Hours Date Time Temp Pulse Resp B/P (MAP) Pulse Ox O2 Delivery O2 Flow Rate FiO2 10/29/17 07:24 36.8 80 16 107/68 (81) 99 Room Air 10/29/17 03:00 36.6 80 16 119/72 (88) 97 Room Air 10/28/17 23:58 Room Air 10/28/17 22:55 36.6 80 16 104/66 (79) 97 Room Air Notes Mental Status: alert / awake / arousable, participated in evaluation Pt Amnestic to Procedure: Yes Nausea / Vomiting: adequately controlled Pain: adequately controlled Airway Patency, RR, SpO2: stable & adequate BP & HR: stable & adequate Hydration State: stable & adequate Anesthetic Complications: no major complications apparent
--- NOTE | 2017-10-29 12:46 | Progress Note ---
Progress Note Date of Service Oct 29, 2017. Progress Note Patient is postop day 1. Back pain is controlled. Leg pain markedly improved. On exam she's good strength testing appears comfortable. Assessment status post operative decompression fusion. Plan this time we will anticipate possible discharge home tomorrow.
[2017-10-29] MEDS ORDERED: KETOROLAC TROMETHAMINE 15 MG/ML VIAL IV. PRN (13:00)
[2017-10-29] MEDS: LORAZEPAM 0.5 MG TAB PO PRN ×2 (13:50→23:45)
[2017-10-29 16:08] VITALS: BP 126/79; PULSE 100; TEMP 37.6; O2SAT 97
[2017-10-29] MEDS: GABAPENTIN 600 MG TAB PO SCH (21:02)
[2017-10-29] MEDS: DULOXETINE HCL 60 MG CAP PO SCH (21:02)
[2017-10-29] MEDS: DOCUSATE SODIUM/SENNA 50/8.6MG TAB PO SCH (21:02)
[2017-10-30] MEDS: POLYETHYLENE (MIRALAX) 17 GM PACK PO SCH ×2 (05:52→12:00)
[2017-10-30 07:21] VITALS: BP 116/67; PULSE 102; TEMP 37.6; O2SAT 93
[2017-10-30] MEDS: PANTOprazole SOD 40 MG TAB PO SCH (07:47)
[2017-10-30] MEDS: NICOTINE 21 MG/24 HR TDSY TD SCH (07:47)
[2017-10-30] MEDS: OXYCODONE HCL IR 5 MG TAB (IMMEDIATE RELEASE) PO PRN ×2 (07:53→14:32)
[2017-10-30 14:37] VITALS: BP 116/67; PULSE 102; TEMP 37.6; O2SAT 93
--- NOTE | 2017-10-30 14:42 | Discharge Summary ---
Orthopedic Discharge Summary Admission Date/Reason Oct 28, 2017 at 10:20 Lumbar Spinal Stenosis L4-5, L5-S1. Discharge Date/Disposition Oct 30, 2017 Home Diagnosis Principal Diagnosis: Lumbar spinal stenosis Admission Physical Exam As per Admitting History & Physical. Hospital Course Patient underwent lumbar decompression fusion tolerated this well was taken to the orthopedic floor postoperatively. Postoperative day #1 she was up in amatory. Postoperative day #2 she continued to progress pain well controlled substernally discharge home. Discharge orders and instructions found on the chart for further review. Discharge Instructions Please refer to the electronic Patient Visit Report (Discharge Instructions) for additional information.
[2017-10-30 15:56] VITALS: BP 106/70; PULSE 93; TEMP 37.1; O2SAT 92
== END 2017-10-30 16:50 | disposition home or self-care (01) | DRG 455 ==
LOC: C.ACU 07:07 → C.MSN 10:20 → ENRESERV 13:48
PROVIDERS: ADMIT Orthopaedic Surgery Orthopaedic Surgery of the Spine; ATTEND Orthopaedic Surgery Orthopaedic Surgery of the Spine
PROC: 0SG00AJ Fusion of Lumbar Vertebral Joint with Interbody Fusion Device, Posterior Approach, Anterior Column, Open Approach (ICD-10-PCS; principal; 2017-10-28 10:15)
PROC: 0SP004Z Removal of Internal Fixation Device from Lumbar Vertebral Joint, Open Approach (ICD-10-PCS; principal; 2017-10-28 10:15)
PROC: 0ST20ZZ Resection of Lumbar Vertebral Disc, Open Approach (ICD-10-PCS; principal; 2017-10-28 10:15)
PROC: 0SG0071 Fusion of Lumbar Vertebral Joint with Autologous Tissue Substitute, Posterior Approach, Posterior Column, Open Approach (ICD-10-PCS; principal; 2017-10-28 10:15)
PROC: 0SP304Z Removal of Internal Fixation Device from Lumbosacral Joint, Open Approach (ICD-10-PCS; principal; 2017-10-28 10:15)
DX: M48.061 Spinal stenosis, lumbar region without neurogenic claudication (principal); Z88.0 Allergy status to penicillin

== ENCOUNTER 2020-01-26 09:35 | Inpatient (IN) ==
[2020-01-26] MEDS ORDERED: MoRPHine SULFATE 4 MG/ML 1 ML CARP\\VIAL IV STA (09:47)
--- NOTE | 2020-01-26 09:59 | Emergency Department Note ---
Impression & Plan Left displaced femoral neck fracture ED Provider Note CHIEF COMPLAINT: Fall, left hip pain HISTORY OF PRESENTING ILLNESS: This is a 59-year-old female with past medical history of lumbar stenosis and back surgery who presents to the emergency department by private vehicle with complaint of left hip pain after a fall last night. Patient states that she was standing in the kitchen brushing her pet and she turned to the side to reach for something and lost her balance, falling onto her left hip. Patient states history of "a bad back and I have tight muscles in my legs, and my legs just give out on me sometimes." She complains of constant pain in the left hip and thigh area is throbbing, worse with any movement of the leg, and she rates it a 10/10. She did not take any medication for the pain. She states she has not been able to walk on the leg since the injury. She states she called her PCP this morning and they referred her to the emergency department. She denies any other injuries from the fall. She denies hitting her head or loss of consciousness. She does not take any blood thinner medication. She denies any neck pain, chest pain, shortness of breath, abdominal pain, nausea or vomiting, urinary complaints, numbness/tingling or weakness in the legs. REVIEW OF SYSTEMS: A complete 10 point review of systems was reviewed with the patient with pertinent positives and negatives as per history of present illness. All else were negative. PAST MEDICAL HISTORY: Lumbar radiculopathy/stenosis, lumbar fusion surgery SOCIAL HISTORY: Lives at home with her , current everyday smoker ALLERGIES: Reviewed in chart with the patient PHYSICAL EXAM: CONSTITUTIONAL: Pleasant and cooperative. No acute distress, but appears uncomfortable from pain. Thin and frail appearing. HEENT: Normocephalic, atraumatic. PERRL, EOMI. NECK: Supple, full active range of motion without discomfort. No midline tenderness to palpation of the cervical spine. RESPIRATORY: Clear to auscultation bilaterally with no wheezing, crackles, rhonchi or stridor. Equal expansion bilaterally. CARDIOVASCULAR: Regular rate and rhythm with no murmurs, rubs or gallops. Normal peripheral perfusion. No edema. GASTROINTESTINAL: Soft, nontender, nondistended. No palpable masses or HSM. Bowel sounds present in all quadrants. MUSCULOSKELETAL: The left leg appears slightly shortened and externally rotated. Tenderness to palpation over the left hip joint and palpation through the left mid and proximal thigh. Unable to perform range of motion of the left hip due to pain. No tenderness in the left knee, ankle, or foot. Normal range of motion in the knee and ankle. 2+ DP pulse. INTEGUMENTARY: No rash or other significant dermatologic conditions noted. NEUROLOGIC: Alert and oriented X 4 with normal affect. ED COURSE AND MEDICAL DECISION MAKING: CC: Patient presenting with complaint of fall, left hip pain DIFFERENTIAL DIAGNOSIS: Includes, but not limited to hip contusion, sprain/strain, hematoma, fracture, dislocation, among others. INTERPRETATION OF LABS: Mild leukocytosis, no anemia, normal platelets, no significant electrolyte abnormalities, normal renal function, coagulation factors within normal limits. IMAGING: XR femur LT 2V routine, XR hip LT 2V w pelvis CLINICAL HISTORY: fall, hip and thigh pain COMPARISON STUDY: None. FINDINGS: Mildly displaced fracture within the left femoral neck. This demonstrated 8 mm of superior displacement. The fracture slightly impacted. No dislocation within the hips. Postoperative changes within the lower lumbar spi ne. The sacrum is intact. No fractures identified within the pelvis or right hip. The mid to distal left femur is intact. IMPRESSION: Mildly displaced left femoral neck fracture. No dislocation. MEDICATION RECONCILIATION: I attest that I have personally reviewed the patient's current medication list. INITIAL VITAL SIGNS REVIEW: I reviewed the patient's initial vital signs and interpret them as follows: T: Afebrile; BP: Hypertensive; HR: Mildly tachycardic; RR: Within normal; Pulse Ox: Within normal limits on room air. Blood pressure screening: The patient was found to have an elevated blood pressure, which was felt to be situational. MDM SUMMARY: Patient was evaluated at bedside, history and physical exam performed. Patient is alert and oriented, in no acute distress, but appears uncomfortable from pain, resting in the stretcher. There is tenderness to palpation over the left hip joint and the left leg is noted to be slightly shortened and externally rotated, concerning for a hip fracture or dislocation. She is neurovascularly intact in the left leg with brisk cap refill in the left foot. Cardiac monitoring: An order was placed for continuous cardiac monitoring. The monitor shows a rate of 92 bpm with normal sinus rhythm. No other complaints and no other signs of trauma on exam. Orders were placed at bedside for basic labs, IV access, IV morphine for pain, x -rays of the left hip and femur to evaluate for trauma. Patient discussed with Dr. Shepherd, who agrees with my assessment, plan, and disposition. Labs and imaging reviewed as above, mild leukocytosis, which I suspect is secondary to stress, no other significant lab abnormalities. X-rays note a mildly displaced left femoral neck fracture without dislocation. Additional orders for preop EKG and chest x-ray were placed. I spoke on the phone with Uziel Bro PA-C with orthopedic surgery, who agrees to evaluate the patient for admission and possible surgery later today. Patient reassessed multiple times throughout ED stay, she has remained hemodynamically stable and her pain is improved with the morphine, she appears much more comfortable. She was updated on all results and plan for admission and surgery, she verbalized understanding and was agreeable to this plan. The patient was stable at time of admission. The chart was completed utilizing [employer]ae Speech voice recognition software. Grammatical errors, random word insertions, pronoun errors, and incomplete sentences are an occasional consequence of this system due to software limitations, ambient noise, and hardware issues. Any formal questions or concerns about the content, text, or information contained within the body of th is dictation should be directly addressed to the nurse practitioner for clarification. 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 Beliefs That Will Affect Care: None marital status: Current Living Situation: Spouse Other Information That Helps Us Care for You: No Feels Safe at Home: Yes Safety Concerns: Feels Safe At This Time Smoking Status: Current every day smoker Tobacco Type: cigarettes ; packs per day: 1 ; Cigarettes Per Day: 10 ; Do You Dip or Chew Tobacco: No ; Second Hand Exposure: No ; Tobacco Cessation Education Requested by Patient: No Hx Alcohol Use: No Hx Substance Use: No Allergies Allergies Allergy/AdvReac Type Severity Reaction Status Date / Time Penicillins Allergy Mild RASH Verified 01/26/20 10:58 Home Meds Home Medications Medication Instructions Recorded Confirmed calcium carbonate 600 mg calcium 1,200 mg PO BID tab 04/21/19 01/26/20 (1,500 mg) tablet multivit with 1 tab PO QAM 04/21/19 01/26/20 [id number]-HF-lutein 8 mg iron-400 mcg-300 mcg tablet acetaminophen [Tylenol Arthritis 650 mg PO Q12H PRN 01/26/20 01/26/20 Pain] cholecalciferol (vitamin D3) 125 mcg PO QAM 01/26/20 01/26/20 [Vitamin D3] duloxetine 60 mg PO HS 01/26/20 01/26/20 Previous Rx's Medication Instructions Recorded tramadol 50 mg tablet 50 - 100 mg PO TID PRN 30 Days 12/21/19 #180 tab Results & Data (ED) Vital Signs Vital Signs - 24 hr 01/26/20 09:38 Temperature 37.2 C Temperature Source Oral Pulse Rate 94 H Respiratory Rate 20 Respiratory Depth Normal Blood Pressure 152/82 H Blood Pressure Mean 105 Pulse Oximetry 99 Oxygen Delivery Method Room Air Sepsis Recent Fever Within 48 Hours No Sepsis New/Unexplained Change in Mental Status No Sepsis Action Taken by Nursing No Action Required Laboratory Data Result diagrams: 01/26/20 10:48 01/26/20 10:48 Lab Results 01/26/20 01/26/20 01/26/20 Range/Units 10:48 10:48 10:48 WBC 12.84 H (4.8-10.8) K/uL RBC 3.54 L (4.2-5.4) M/uL Hgb 12.2 (12.0-16.0) g/dL Hct 35.3 L (37-47) % MCV 99.7 (80-100) fL MCH 34.5 H (25-34) pg MCHC 34.6 (32-36) g/dL RDW Std Deviation 47.6 H (36.4-46.3) fL RDW Coeff of Jose 12.9 (11.5-14.5) % Plt Count 238 (130-400) K/uL MPV 10.4 (7.4-10.4) fL Immature Gran % (Auto) 0.4 % Neut % (Auto) 80.3 % Lymph % (Auto) 10.1 % [place] % (Auto) 9.0 % Eos % (Auto) 0.0 % Baso % (Auto) 0.2 % Immature Gran # (Auto) 0.05 H (0.00-0.02) K/uL Neut # (Auto) 10.32 H (1.4-6.5) K/uL Lymph # (Auto) 1.30 (1.2-3.4) K/uL [place] # (Auto) 1.15 H (0.11-0.59) K/uL Eos # (Auto) 0.00 (0-0.5) K/uL Baso # (Auto) 0.02 (0-0.2) K/uL RBC Morphology Unremarkable PT 11.3 (9.0-12.0) Seconds INR 1.1 (0.9-1.1) APTT 22.2 (21.0-31.0) Seconds PTT Ratio 0.8 Sodium 136 (136-145) mmol/L Potassium 3.7 (3.5-5.1) mmol/L Chloride 106 (98-107) mmol/L Carbon Dioxide 24 (21-32) mmol/L Anion Gap 6.0 (3-11) BUN 9 (7-18) mg/dl Creatinine 0.66 (0.6-1.2) mg/dl Est Cr Clr Drug Dosing Not Reportable Est GFR ( Amer) 111.3 Est GFR (Non-Af Amer) 96.0 BUN/Creatinine Ratio 14.1 (10-20) Glucose 97 (70-99) mg/dl Calcium 8.3 L (8.5-10.1) mg/dl 25-OH Vitamin D Total (30-100) ng/ml Blood Type Antibody Screen 01/26/20 01/26/20 Range/Units 10:53 10:53 WBC (4.8-10.8) K/uL RBC (4.2-5.4) M/uL Hgb (12.0-16.0) g/dL Hct (37-47) % MCV (80-100) fL MCH (25-34) pg MCHC (32-36) g/dL RDW Std Deviation (36.4-46.3) fL RDW Coeff of Jose (11.5-14.5) % Plt Count (130-400) K/uL MPV (7.4-10.4) fL Immature Gran % (Auto) % Neut % (Auto) % Lymph % (Auto) % [place] % (Auto) % Eos % (Auto) % Baso % (Auto) % Immature Gran # (Auto) (0.00-0.02) K/uL Neut # (Auto) (1.4-6.5) K/uL Lymph # (Auto) (1.2-3.4) K/uL [place] # (Auto) (0.11-0.59) K/uL Eos # (Auto) (0-0.5) K/uL Baso # (Auto) (0-0.2) K/uL RBC Morphology PT (9.0-12.0) Seconds INR (0.9-1.1) APTT (21.0-31.0) Seconds PTT Ratio Sodium (136-145) mmol/L Potassium (3.5-5.1) mmol/L Chloride (98-107) mmol/L Carbon Dioxide (21-32) mmol/L Anion Gap (3-11) BUN (7-18) mg/dl Creatinine (0.6-1.2) mg/dl Est Cr Clr Drug Dosing Est GFR ( Amer) Est GFR (Non-Af Amer) BUN/Creatinine Ratio (10-20) Glucose (70-99) mg/dl Calcium (8.5-10.1) mg/dl 25-OH Vitamin D Total 102.8 H (30-100) ng/ml Blood Type A Positive Antibody Screen NEGATIVE Administered Medications Hydromorphone HCl (Dilaudid) 0.5 mg IV Q4H PRN PRN Reason: Pain Stop: 02/09/20 11:44 Last Admin: 01/26/20 13:12 Dose: 0.5 mg Documented by: [id number] Sodium Chloride (Nss 1000ml) 1,000 mls @ 75 mls/hr IV .[id number] SHIVANI Stop: 02/25/20 11:29 Last Admin: 01/26/20 13:21 Dose: 75 mls/hr Documented by: [id number] Nicotine (Nicoderm Cq) 14 mg TD Q24H SHIVANI Stop: 02/25/20 17:59 Last Admin: 01/26/20 17:41 Dose: 14 mg Documented by: [id number] Oxycodone HCl (Roxicodone Immediate Rel) 5 - 10 mg PO Q4H PRN PRN Reason: Pain Stop: 02/09/20 11:44 Last Admin: 01/26/20 15:07 Dose: 10 mg Documented by: [id number] Discontinued Medications Morphine Sulfate (Morphine Sulfate) 4 mg IV NOW STA Stop: 01/26/20 09:48 Last Admin: 01/26/20 10:25 Dose: 4 mg Documented by: [id number] Discharge Plan Visit Data *Final* Discharge Date/Time: 01/26/20 13:47 Chief Complaint: Hip Pain Stated Complaint: FELL, LT HIP PAIN ED Provider: Jerod Shepherd ED Midlevel Provider: Emily Miller Discharge Problem: Left displaced femoral neck fracture Patient Disposition: Admitted As Inpatient Discharge Instructions Interventions: ED Discharge Assessment Last Done: 01/26/20 13:47
--- NOTE | 2020-01-26 10:27 | XRay Report ---
XR femur LT 2V routine, XR hip LT 2V w pelvis CLINICAL HISTORY: fall, hip and thigh pain COMPARISON STUDY: None. FINDINGS: Mildly displaced fracture within the left femoral neck. This demonstrated 8 mm of superior displacement. The fracture slightly impacted. No dislocation within the hips. Postoperative changes w ithin the lower lumbar spine. The sacrum is intact. No fractures identified within the pelvis or righ t hip. The mid to distal left femur is intact. IMPRESSION: Mildly displaced left femoral neck fracture. No dislocation. ACT 112: Negative or not required by law. Electronically signed by: Dominick Malloy M.D. 01/26/2020 10:26 AM
--- NOTE | 2020-01-26 10:29 | XRay Report ---
XR chest 1V portable HISTORY: Preop. Left hip fracture. Fall. COMPARISON: Chest 03/22/2014. FINDINGS: No focal lung consolidations to suggest pneumonia. No evidence for pulmonary edema. The hea rt is top normal in size. No pleural effusions. No pneumothorax. Cervical spinal fusion hardware is n oted. IMPRESSION: No acute process. ACT 112: Negative or not required by law. Electronically signed by: Dominick Malloy M.D. 01/26/2020 10:27 AM
[2020-01-26 11:10] LABS: Basophils # (auto) 0.02 K/uL (0-0.2); Basophils % (auto) 0.2 %; Hematocrit (blood only) 35.3 % (37-47); Hemoglobin 12.2 g/dL (12.0-16.0); Immature Granulocytes # (auto) 0.05 K/uL (0.00-0.02); Immature Granulocytes % (auto) 0.4 %; Lymphocytes % (auto) 10.1 %; Mean Corpuscular Hemoglobin 34.5 pg (25-34); Mean Corpuscular Hgb Conc 34.6 g/dL (32-36); Mean Corpuscular Volume 99.7 fL (80-100); Mean Platelet Volume 10.4 fL (7.4-10.4); Monocytes # (auto) 1.15 K/uL (0.11-0.59); Neutrophils # (auto) 10.32 K/uL (1.4-6.5); Neutrophils % (auto) 80.3 %; Platelet Count 238 K/uL (130-400); RDW Coefficient of Variation 12.9 % (11.5-14.5); RDW Standard Deviation 47.6 fL (36.4-46.3); Red Blood Count 3.54 M/uL (4.2-5.4); White Blood Count 12.84 K/uL (4.8-10.8)
[2020-01-26 11:19] LABS: BUN Creatinine Ratio 14.1 (10-20); Blood Urea Nitrogen 9 mg/dl (7-18); Calcium 8.3 mg/dl (8.5-10.1); Carbon Dioxide 24 mmol/L (21-32); Chloride 106 mmol/L (98-107); Est GFR (African American) 111.3; Glucose 97 mg/dl (70-99); Potassium 3.7 mmol/L (3.5-5.1); Sodium 136 mmol/L (136-145)
[2020-01-26] MEDS ORDERED: ONDANSETRON INJ 2 MG/ML 2 ML VIAL IV PRN (11:19)
[2020-01-26] MEDS ORDERED: ALUMINUM/MAGNESIUM SUSP 30 ML UDC PO PRN (11:19)
[2020-01-26 11:24] LABS: INR 1.1 (0.9-1.1); Partial Thromboplastin Ratio 0.8; Partial Thromboplastin Time 22.2 Seconds (21.0-31.0); Prothrombin Time 11.3 Seconds (9.0-12.0)
[2020-01-26 11:42] LABS: RBC Morphology Unremarkable
--- NOTE | 2020-01-26 11:51 | History & Physical Report ---
Date of Service January 26, 2020 Assessment & Plan (1) Left displaced femoral neck fracture: Patient will require either a bipolar hemiarthroplasty or total hip arthroplasty. She is a community ambulator and is still active at work. Her case is being discussed with [facility] physicians and plans will be for the OR tomorrow. I discussed this with the patient in detail and she is in agreement. History of Present Illness Chief Complaint: Left hip pain Primary Care Provider: Masha Vega DO Patient is a 59-year-old female who states that she was at home last night taking care of her cat. At one point she stepped to the side and lost her balance and fell onto her left side. She had immediate pain in her left hip and groin and her was helping her get around last night. She states that she was unable to bear weight and called her PCP this morning. They referred her to the emergency room. She was brought by her to the emergency room and was seen by the staff. X-rays were taken and was found that she had a displaced left femoral neck fracture. She had no lightheadedness, dizziness, chest pain or shortness of breath pre-or post fall. She denies hitting her head or losing consciousness. Currently she complains of left hip pain with motion. Allergies Allergy/AdvReac Type Severity Reaction Status Date / Time Penicillins Allergy Mild RASH Verified 01/26/20 10:58 Home Medications Home Medications Medication Instructions Recorded Confirmed Type calcium carbonate 600 mg calcium 1,200 mg PO BID tab 04/21/19 01/26/20 History (1,500 mg) tablet multivit with 1 tab PO QAM 04/21/19 01/26/20 History wqwakzki-bxpm-TH-lutein 8 mg iron-400 mcg-300 mcg tablet tramadol 50 mg tablet 50 - 100 mg PO TID PRN 30 Days 12/21/19 01/26/20 Rx #180 tab acetaminophen [Tylenol Arthritis 650 mg PO Q12H PRN 01/26/20 01/26/20 History Pain] cholecalciferol (vitamin D3) 125 mcg PO QAM 01/26/20 01/26/20 History [Vitamin D3] duloxetine 60 mg PO HS 01/26/20 01/26/20 History Past Med/Surg History Medical History Cervical radiculopathy (Chronic) Cervical stenosis of spinal canal (Acute 03/30/14) Headache (Chronic) Low back pain (Chronic) Lumbar canal stenosis (Chronic) Lumbar radiculopathy (Chronic) Surgical History S/P spinal fusion Status post lumbar laminectomy Family History (Updated 01/26/20 @ 17:28 by Latrice Dalton PA-C) Other Foster child Social History Preferred Language: Somali Communication Ability: Effective 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 Beliefs That Will Affect Care: None marital status: Current Living Situation: Spouse Other Information That Helps Us Care for You: No Feels Safe at Home: Yes Safety Concerns: Feels Safe At This Time Smoking Status: Current every day smoker Tobacco Type: cigarettes ; packs per day: 1 ; Cigarettes Per Day: 10 ; Do You Dip or Chew Tobacco: No ; Second Hand Exposure: No ; Tobacco Cessation Education Requested by Patient: No Hx Alcohol Use: No Hx Substance Use: No Review of Systems Review of Systems: All systems reviewed & are unremarkable except as noted in Subjective Physical Exam Constitutional: WD/WN, vitals as above Eyes: PERRL, conjunctivae normal, anicteric sclerae ENMT: external ear and nose normal, oropharynx normal Neck: trachea midline, no thyromegaly Respiratory: normal respiratory effort, lungs clear to auscultation Cardiovascular: Rate/Rhythm: regular rate and regular rhythm Gastrointestinal (Abdomen): normal bowel sounds, soft, nontender, no hepatosplenomegaly Musculoskeletal: On examination of her left lower extremity, the leg is shortened and externally rotated compared to the right. She has good range of motion of her left foot and ankle. No attempts were made to go through range of motion of the left knee or hip due to fracture. Left knee is nontender on palpation. Right lower extremity is within normal limits and is nontender at the hip knee and ankle. Range of motion is within normal limits. She is nontender at the shoulders, elbows, and wrists. Range of motion is within normal limits. Distal pulses are equal bilaterally of the upper and lower extremities. Denies any increased back pain from the fall. There is no gross motor or sensory loss seen at this time. Skin: no rashes, warm and dry Psychiatric: Orientation: alert and oriented x 3 Results & Data Results & Data ([facility]) Vital Signs (Past 12 Hours) Vital Signs Temp Pulse Pulse Resp BP BP Pulse Ox 01/26/20 11:31 86 18 136/78 99 01/26/20 09:38 37.2 C 94 H 20 152/82 H 99 Diagnostic Findings atient: WILDER CARLOS AAdmit Date: 01/26/20 MR#: [id number]: [id number] [facility] Acct ID:[id number]: Date: 1960[facility] Zip: [place] [address] Age: 59Location: ED Sex: F Room/Bed: Att Phy:Diagnosis: FELL, LT HIP PAIN Lita Phy: Masha Vega DOService Date: 01/26/20 Fam Phy:Interpreting Phy: Dominick Malloy MD Admit Phy: Ordering Phy: Emily Miller CRNP cc: ~ XR femur LT 2V routine, XR hip LT 2V w pelvis CLINICAL HISTORY: fall, hip and thigh pain COMPARISON STUDY: None. FINDINGS: Mildly displaced fracture within the left femoral neck. This demonstrated 8 mm of superior displacement. The fracture slightly impacted. No dislocation within the hips. Postoperative changes within the lower lumbar spine. The sacrum is intact. No fractures identified within the pelvis or right hip. The mid to distal left femur is intact. IMPRESSION: Mildly displaced left femoral neck fracture. No dislocation. Code Status & VTE Plan VTE Prophylaxis Plan VTE Prophylaxis will be ordered: Yes
[2020-01-26] MEDS: HYDROmorphone INJ 0.5 MG/0.5 ML SYR IV PRN ×3 (13:12→22:31)
[2020-01-26] MEDS: SODIUM CHLORIDE 0.9% 1000ML 1,000 ML IV SCH (13:21)
[2020-01-26] MEDS: OXYCODONE HCL IR 5 MG TAB (IMMEDIATE RELEASE) PO PRN ×2 (15:07→20:29)
[2020-01-26 15:21] LABS: Appearance Urine Clear (Clear); Bilirubin Urine Negative (Negative); Blood Urine 2+ (Negative); Color Urine Yellow; Epithelial Cell Urine Auto 20-30 /lpf (0-5); Glucose Urine UA Negative (Negative); Ketones Urine Negative (Negative); Leukocyte Esterase Urine Negative (Negative); Nitrite Urine Negative (Negative); Protein Urine 1+ (Negative); Specific Gravity Urine 1.014 (1.000-1.030); Urobilinogen Urine Negative (Negative); pH Urine 6.5 (4.5-7.5)
[2020-01-26 16:05] LABS: Bacteria Urine Automated 1+ (Negative)
--- NOTE | 2020-01-26 16:28 | Electrocardiogram Report ---
Test Reason : Blood Pressure : / mmHG Vent. Rate : 083 BPM Atrial Rate : 083 BPM P-R Int : 118 ms QRS Dur : 068 ms QT Int : 402 ms P-R-T Axes : 061 -52 027 degrees QTc Int : 472 ms Normal sinus rhythm Left axis deviation Abnormal ECG When compared with ECG of 12-JAN-2017 14:13, Premature supraventricular complexes are no longer Present QRS axis Shifted left Nonspecific T wave abnormality now evident in Inferior leads Confirmed by Pankaj Mancuso ([id number]) on 01/26/2020 4:27:45 PM Referred By: REFERRED SELF Confirmed By:Sean Mancuso
[2020-01-26] MEDS ORDERED: Nursing to Pharmacy Communication ONE (17:12)
--- NOTE | 2020-01-26 17:26 | Consultation ---
Date of Consultation January 26, 2020 Assessment & Plan (1) Pre-op evaluation: (2) Left displaced femoral neck fracture: This is a 59-year-old female who has significant PMH of chronic low back pain, history of cervical fusion, history of lumbar surgery, history of pancreatitis who presents to ED status post fall. Imaging revealed Left mildly displaced femoral neck fracture. CBC, CMP, urinalysis reviewed. UA +1 bacturia - specimen appears contaminated, pt is asymptomatic. CXR with out acute abnormality. ECG reviewed and unchanged from prior. Pain management per ortho DVT prophylaxis per ortho NPO after midnight From our standpoint she is medically cleared for surgery and deemed as low risk for cardiovascular complications monitor H&H post operatively (3) Leukocytosis: wbc 12k no s/sx of infection likely in setting of fall/trauma (4) Microscopic hematuria: recommend repeat urinalysis, f/u as outpt risk factor +smoker (5) Tobacco abuse: nicotine patch Disposition: admitted to med/surg Follow up: PCP Dr. Vega upon discharge Pt was seen and examined in collaboration with Dr. Blackburn, please see addendum Starting 01/27/2020 pt will be under the care of Dr. Le Thank you for this consultation. We will follow the patient with you during their hospital stay. You can reach a member of the [facility] Hospitalist Team 30/03 via pager @ [phone]. Supervising Physician Co-Signing Physician Notes Pt was seen and examined. Agreed with Latrice NAVARRETE exam, assessment and plan. 59-year-old female who has significant PMH of chronic low back pain, history of cervical fusion, history of lumbar surgery, history of pancreatitis who presents to ED status post fall. Pt said that yesterday while brushing her cat, she lost her balance when she tried to get up and fell on her left side. She said that pain is worst when she tried to stand or move her left leg. Pelvis/femur Xray showed mildly displaced left femoral neck fracture. No dislocation. She is planning to have surgery tomorrow for either a bipolar hemiarthroplasty or total hip arthroplasty. Denies any chest pain, palpitation, dizziness and SOB. Pt said that before the fracture she was very active. She said that she was able to walk 1 block and climb few flight of stairs without any chest pain, palpitation and SOB. Pt had a functional capacity with a METS greater than 4 before her fracture. Denies any chest pain, palpitation and SOB. Surgical risks discussed in detail with patient by orthopedic. Pt understood the risk such as blood clot, bleeding, infection, worsening pain and even . Medically stable. MD Alexey History of Present Illness Requesting Physician: Uziel Hawk PA-C Reason for Consultation: Pre-op clearance Attending Physician: Jaydon Box DO History of Present Illness This is a 59-year-old female who has significant PMH of chronic low back pain, history of cervical fusion, history of lumbar surgery, history of pancreatitis who presents to ED status post fall. She states yesterday she was brushing her cat whenever she went to stand up, lost her balance and fell on her left side. She denies loss of consciousness or hitting head. She was unable to bear weight on left lower extremity. She opted to present to ED. Imaging revealed left femoral neck mildly displaced fracture. She was seen, evaluated and admitted by orthopedics. We have been consulted for preoperative clearance. Prior to yesterday's fall patient has been in a good state of health. She denies any prior history of CAD, HTN, HLD, diabetes. She is a smoker approximately half a pack a day. She drinks alcohol 3-4 times a week. At baseline she ambulates without assist device. She is relatively active. She able to ambulate a flight of stairs without chest pain. She denies any recent illness, fever, chills, sweats, lightheadedness, dizziness, syncope, chest pain, chest pain with exertion, JAMIL, shortness of breath, cough, nausea, vomiting, abdominal pain, change in bowel or urinary habits. She does admit to having a few episodes of diarrhea yesterday and today. Melena or hematochezia. Appetite has otherwise been stable. No significant FH as pt was a foster child. Allergies Allergy/AdvReac Type Severity Reaction Status Date / Time Penicillins Allergy Mild RASH Verified 01/26/20 10:58 Home Medications Home Medications Medication Instructions Recorded Confirmed Type calcium carbonate 600 mg calcium 1,200 mg PO BID tab 04/21/19 01/26/20 History (1,500 mg) tablet multivit with 1 tab PO QAM 04/21/19 01/26/20 History hyverkrn-oqka-PK-lutein 8 mg iron-400 mcg-300 mcg tablet tramadol 50 mg tablet 50 - 100 mg PO TID PRN 30 Days 12/21/19 01/26/20 Rx #180 tab acetaminophen [Tylenol Arthritis 650 mg PO Q12H PRN 01/26/20 01/26/20 History Pain] cholecalciferol (vitamin D3) 125 mcg PO QAM 01/26/20 01/26/20 History [Vitamin D3] duloxetine 60 mg PO HS 01/26/20 01/26/20 History Patient History Medical History Cervical radiculopathy (Chronic) Cervical stenosis of spinal canal (Acute 03/30/14) Headache (Chronic) Low back pain (Chronic) Lumbar canal stenosis (Chronic) Lumbar radiculopathy (Chronic) Surgical History S/P spinal fusion Status post lumbar laminectomy Family History (Updated 01/26/20 @ 17:28 by Latrice Dalton PA-C) Other Foster child Social History Preferred Language: Turkish Communication Ability: Effective Mortgage Counselor Required: No Beliefs That Will Affect Care: None marital status: Current Living Situation: Spouse Other Information That Helps Us Care for You: No Feels Safe at Home: Yes Safety Concerns: Feels Safe At This Time Smoking Status: Current every day smoker Tobacco Type: cigarettes ; packs per day: 1 ; Cigarettes Per Day: 10 ; Do You Dip or Chew Tobacco: No ; Second Hand Exposure: No ; Tobacco Cessation Education Requested by Patient: No Hx Alcohol Use: No Hx Substance Use: No Review of Systems Review of Systems: All systems reviewed & are unremarkable except as noted in HPI & below Physical Exam Physical Exam: Constitutional: Thin, Petite, F, vitals as above, NAD, lying in bed, pleasant, conversing easily Head: Normocephalic, Atraumatic Eyes: PERRL, conjunctivae normal, anicteric sclerae ENMT: external ear and nose normal, oropharynx normal Neck: trachea midline, no thyromegaly normal visual inspection Respiratory: normal respiratory effort, lungs clear to auscultation, no wheeze, rales, rhonchi. Normal insp/exp effort, no accessory muscle use Cardiovascular: RRR, no murmur, no edema Vessels: no JVD or carotid bruit Chest: normal inspection of chest Abdomen: normal bowel sounds, soft, nontender, no hepatosplenomegaly Musculoskeletal: no cyanosis or clubbing, LLE in immobilizer, NVI distally, b/l pedal pulse +2 Skin: no rashes, warm and dry normal turgor Neurologic: PERRL, EOMI, accommodation nl, no face palsy, no dysarthria CN's II-XI intact bilaterally and moves all extremities Psychiatric: A+Ox3, euthymic affect Lymphatic: no cervical or axillary lymphadenopathy : deferred Results & Data ([facility]) Vital Signs (Past 12 Hours) Vital Signs Temp Pulse Pulse Resp BP BP Pulse Ox 01/26/20 15:30 37.5 C 85 18 131/77 96 01/26/20 14:32 36.4 C L 83 16 151/87 H 97 01/26/20 13:47 83 18 135/72 95 01/26/20 12:59 82 18 141/77 H 98 01/26/20 11:31 86 18 136/78 99 01/26/20 09:38 37.2 C 94 H 20 152/82 H 99 Laboratory Results Short CBC 01/26/20 Range/Units 10:48 WBC 12.84 H (4.8-10.8) K/uL Hgb 12.2 (12.0-16.0) g/dL Hct 35.3 L (37-47) % Plt Count 238 (130-400) K/uL BMP 01/26/20 10:48 Sodium 136 Potassium 3.7 Chloride 106 Carbon Dioxide 24 BUN 9 Creatinine 0.66 Glucose 97 Calcium 8.3 L Urine 01/26/20 Range/Units 14:38 Urine Color Yellow Urine Appearance Clear (Clear) Urine pH 6.5 (4.5-7.5) Ur Specific [place] 1.014 (1.000-1.030) Urine Protein 1+ H (Negative) Urine Glucose (UA) Negative (Negative) Diagnostic Findings Femur Xray: IMPRESSION: Mildly displaced left femoral neck fracture. No dislocation. Hip/Pelvis Xray: IMPRESSION: Mildly displaced left femoral neck fracture. No dislocation. CXR: IMPRESSION: No acute process. Medications Administered Hydromorphone HCl (Dilaudid) 0.5 mg IV Q4H PRN PRN Reason: Pain Stop: 02/09/20 11:44 Last Admin: 01/26/20 13:12 Dose: 0.5 mg Documented by: [id number] Sodium Chloride (Nss 1000ml) 1,000 mls @ 75 mls/hr IV .[id number] SHIVANI Stop: 02/25/20 11:29 Last Admin: 01/26/20 13:21 Dose: 75 mls/hr Documented by: [id number] Oxycodone HCl (Roxicodone Immediate Rel) 5 - 10 mg PO Q4H PRN PRN Reason: Pain Stop: 02/09/20 11:44 Last Admin: 01/26/20 15:07 Dose: 10 mg Documented by: [id number] Discontinued Medications Morphine Sulfate (Morphine Sulfate) 4 mg IV NOW STA Stop: 01/26/20 09:48 Last Admin: 01/26/20 10:25 Dose: 4 mg Documented by: [id number] ECG Rate (beats per minute): 83 Rhythm: normal sinus Findings: + T-wave inversion (V2-V3 ) Comparison ECG Date: from (01/12/2017) Change: no significant change Additional Comments: Only change from previous ecg is QTC has shortened from 518ms to 472ms
[2020-01-26] MEDS: NICOTINE 14 MG/24 HR PATCH TD SCH (17:41)
[2020-01-26] MEDS: CALCIUM CARBONATE 1250MG TAB PO SCH (20:30)
[2020-01-26] MEDS: DULOXETINE HCL 60 MG CAP PO SCH (20:31)
[2020-01-27] MEDS: OXYCODONE HCL IR 5 MG TAB (IMMEDIATE RELEASE) PO PRN ×2 (00:27→07:09)
[2020-01-27] MEDS: SODIUM CHLORIDE 0.9% 1000ML 1,000 ML IV SCH ×2 (01:05→19:49)
[2020-01-27] MEDS: HYDROmorphone INJ 0.5 MG/0.5 ML SYR IV PRN ×3 (03:49→12:33)
[2020-01-27 05:41] LABS: Basophils # (auto) 0.02 K/uL (0-0.2); Basophils % (auto) 0.2 %; Eosinophils # (auto) 0.04 K/uL (0-0.5); Eosinophils % (auto) 0.4 %; Hematocrit (blood only) 34.8 % (37-47); Hemoglobin 11.7 g/dL (12.0-16.0); Immature Granulocytes # (auto) 0.03 K/uL (0.00-0.02); Immature Granulocytes % (auto) 0.3 %; Lymphocytes # (auto) 1.72 K/uL (1.2-3.4); Lymphocytes % (auto) 17.9 %; Mean Corpuscular Hemoglobin 34.3 pg (25-34); Mean Corpuscular Hgb Conc 33.6 g/dL (32-36); Mean Corpuscular Volume 102.1 fL (80-100); Monocytes # (auto) 0.92 K/uL (0.11-0.59); Monocytes % (auto) 9.6 %; Neutrophils # (auto) 6.88 K/uL (1.4-6.5); Neutrophils % (auto) 71.6 %; Platelet Count 207 K/uL (130-400); RDW Standard Deviation 48.7 fL (36.4-46.3); Red Blood Count 3.41 M/uL (4.2-5.4); White Blood Count 9.61 K/uL (4.8-10.8)
[2020-01-27] MEDS ORDERED: CLINDAMYCIN 900 MG in DEXTROSE 5% 50 ML IV SCH (06:00)
[2020-01-27] MEDS ORDERED: ROPIVACAINE 0.5% HCL/PF 150 MG, BUPIVACAINE 0.5% MPF 30 ML, EPINEPHrine 30MG/30ML (OR U... INFIL SCH (06:00)
[2020-01-27 06:13] LABS: BUN Creatinine Ratio 6.9 (10-20); Est GFR (Non-African American) 97.5; Potassium 3.2 mmol/L (3.5-5.1)
[2020-01-27] MEDS ORDERED: POTASSIUM CHLORIDE 20 MEQ TABCR PO STA (07:15)
--- NOTE | 2020-01-27 07:46 | Orthopedic Progress Note ---
Date of Service January 27, 2020 Assessment & Plan (1) Left displaced femoral neck fracture: Plan for likely left YEFRI today with . Plan for cortisone cream for her rash. Admission and Anticipated Discharge Date Admission Date: January 26, 2020 Subjective Patient is awake and alert. States she had somewhat of a rough night due to left hip pain. No new complaints. Denies any shortness of breath, chest pain, lightheadedness. Nursing relates that patient is having an area of small rash on the buttock due to aspiration and the sheets causing irritation. Physical Exam Physical Exam: Damon's traction is in place. No change in her neurovascular status. Results & Data ([facility]) Vital Signs (Past 12 Hours) Vital Signs Temp Pulse Resp BP Pulse Ox 01/27/20 07:25 36.8 C 86 16 129/83 01/26/20 23:25 36.9 C 86 12 133/74 94
[2020-01-27] MEDS ORDERED: HYDROCORTISONE 1% CRM 30 GM TUBE EXT PRN (07:47)
[2020-01-27] MEDS ORDERED: POTASSIUM CHLORIDE 20 MEQ TABCR PO ONE (09:24)
[2020-01-27] MEDS: CHOLECALCIFEROL 1,000 UNITS 25 MCG TAB PO SCH (09:39)
[2020-01-27] MEDS: CALCIUM CARBONATE 1250MG TAB PO SCH ×2 (09:39→21:41)
[2020-01-27] MEDS ORDERED: BUPIVACAINE 0.5 % 5 MG/1 ML PF 10ML VIAL ONE (13:36)
[2020-01-27] MEDS ORDERED: ROPIVACAINE 0.5% 5 MG/ML 30 ML VIAL ONE (13:37)
[2020-01-27] MEDS ORDERED: ATROPINE SULFATE 0.1 MG/ML 10ML SYR IV PRN (13:40)
[2020-01-27] MEDS ORDERED: fentaNYL citrate 100 MCG/2 ML VIAL IV PRN (13:40)
[2020-01-27] MEDS ORDERED: ePHEDrine sulfate 50 MG/ML AMP IV PRN (13:40)
[2020-01-27] MEDS ORDERED: ONDANSETRON INJ 2 MG/ML 2 ML VIAL IV PRN (13:40)
[2020-01-27] MEDS ORDERED: HYDROmorphone INJ 2 MG/ML SYR/VIAL IV PRN (13:40)
--- NOTE | 2020-01-27 13:40 | Anesthesiology Consultation ---
Date of Service January 27, 2020 Assessment & Plan ASA ASA2 Proposed Anesthesia Anesthesia Type: MAC Spinal Regional Regional Laterality: Left Site: other (fascia illiacus) Risk / Benefits Reviewed With: PT / POA / Parent / Guardian, Accepts Plan and Informed Consent Obtained History Surgery Operation Date: 01/27/20 07:00 Proposed Procedures p Left Total Hip Arthroplasty - Kumar Rosa MD Height/Weight Height: 5 ft 2 in Weight: 42 kg Allergies Allergy/AdvReac Type Severity Reaction Status Date / Time Penicillins Allergy Mild RASH Verified 01/26/20 10:58 Medications Home Medications Medication Instructions Recorded Confirmed Last Taken calcium carbonate 600 mg calcium 1,200 mg PO BID tab 04/21/19 01/26/20 01/25/20 (1,500 mg) tablet multivit with 1 tab PO QAM 04/21/19 01/26/20 01/25/20 mlolwwvr-ugae-JA-lutein 8 mg iron-400 mcg-300 mcg tablet tramadol 50 mg tablet 50 - 100 mg PO TID PRN 30 Days 12/21/19 01/26/20 01/26/20 03:00 #180 tab 50 mg acetaminophen [Tylenol Arthritis 650 mg PO Q12H PRN 01/26/20 01/26/20 01/26/20 03:00 Pain] 1300 mg cholecalciferol (vitamin D3) 125 mcg PO QAM 01/26/20 01/26/20 01/25/20 [Vitamin D3] duloxetine 60 mg PO HS 01/26/20 01/26/20 01/25/20 Active Medications Generic Name Dose Route Start Last Admin Trade Name Freq PRN Reason Stop Dose Admin Calcium Carbonate 1,250 mg 01/26/20 21:00 01/27/20 09:39 Os-Avinash 500 PO 02/25/20 20:59 1,250 mg BID SHIVANI Administration Duloxetine HCl 60 mg 01/26/20 21:00 01/26/20 20:31 Cymbalta PO 02/25/20 20:59 60 mg HS SHIVANI Administration Hydromorphone HCl 0.5 mg 01/26/20 11:45 01/27/20 12:33 Dilaudid IV 02/09/20 11:44 0.5 mg Q4H PRN Administration Pain Sodium Chloride 1,000 mls @ 75 mls/hr 01/26/20 11:30 01/27/20 06:04 Nss 1000ml IV 02/25/20 11:29 75 mls/hr .[id number] SHIVANI Infusion Nicotine 14 mg 01/26/20 18:00 01/26/20 17:41 Nicoderm Cq TD 02/25/20 17:59 14 mg Q24H SHIVANI Administration Oxycodone HCl 5 - 10 mg 01/26/20 11:45 01/27/20 07:09 Roxicodone Immediate Rel PO 02/09/20 11:44 10 mg Q4H PRN Administration Pain Vitamin D 5,000 units 01/27/20 09:00 01/27/20 09:39 Vitamin D3 PO 02/26/20 08:59 5,000 units QAM SHIVANI Administration NPO Date Last Intake of Fluids: 01/27/20 Time Last Intake of Fluids: 00:00 Date Last Intake of Solids: 01/26/20 Time Last Intake of Solids: 19:30 Past Medical History Medical History Cervical radiculopathy (Chronic) Cervical stenosis of spinal canal (Acute 03/30/14) Headache (Chronic) Low back pain (Chronic) Lumbar canal stenosis (Chronic) Lumbar radiculopathy (Chronic) Exercise / Class Metabolic Activity II 4-5 Yardwork/Stairs/Walk up hill Past Family History Family History Other Foster child Past Surgical History Surgical History S/P spinal fusion Status post lumbar laminectomy Past Anesthesia History No Hx of Anesthesia Complications and No Family Hx of Anesthesia Complications History of PONV No Hx of PONV and No Hx of Motion Sickness Social History Smoking Status: Current every day smoker tobacco type: cigarettes Smoking cigarettes per day: 10 Do You Dip or Chew Tobacco: No Hx Alcohol Use: No Hx Substance Use: No substance use type: does not use Review of Systems denies fever/cough/ colds/ chest pain/ SOB/ DEANNA Constitutional: no fever and no chills Respiratory: no cough and no dyspnea denies DEANNA Cardiovascular: no chest pain and no dyspnea on exertion Physical Exam Vital Signs Last Vital Signs Temp 37.4 C 01/27/20 13:27 Pulse 90 05/22/20 13:27 Resp 18 01/27/20 13:27 BP 143/81 H 01/27/20 13:27 Pulse Ox 97 01/27/20 13:27 ENMT Mouth: no TMJ abnormality and no dentition abnormality Thyromental Distance: > or= 3.5 Finger Breadths Mallampati Class: II Mouth / Teeth: 1. missing Neck neck extension not limited Respiratory normal respiratory effort; no respiratory distress Auscultation: lungs clear to auscultation bilaterally Cardiovascular Rate/Rhythm: regular rate and regular rhythm Neurologic moves all extremities Psychiatric Orientation: alert and oriented x 3 Testing Laboratory Results 01/27/20 05:28 01/27/20 05:28 PT 11.3 Seconds (9.0-12.0) 01/26/20 10:48 INR 1.1 (0.9-1.1) 01/26/20 10:48 APTT 22.2 Seconds (21.0-31.0) 01/26/20 10:48 Urine Color Yellow 01/26/20 14:38 Urine Appearance Clear (Clear) 01/26/20 14:38 Urine pH 6.5 (4.5-7.5) 01/26/20 14:38 Ur Specific [place] 1.014 (1.000-1.030) 01/26/20 14:38 Urine Protein 1+ (Negative) H 01/26/20 14:38 Urine Glucose (UA) Negative (Negative) 01/26/20 14:38 Urine Ketones Negative (Negative) 01/26/20 14:38 Urine Nitrite Negative (Negative) 01/26/20 14:38 Ur Leukocyte Esterase Negative (Negative) 01/26/20 14:38 Urine WBC (Auto) 1-5 /hpf (0-5) 01/26/20 14:38 Urine RBC (Auto) 10-30 /hpf (0-4) H 01/26/20 14:38 U Hyaline Cast (Auto) 1-5 /lpf (0-5) 01/26/20 14:38 U Epithel Cells (Auto) 20-30 /lpf (0-5) H 01/26/20 14:38 Urine Bacteria (Auto) 1+ (Negative) H 01/26/20 14:38 Blood Type A Positive 01/26/20 10:53 Antibody Screen NEGATIVE 01/26/20 10:53 01/26/20 14:38 Urine Culture - Preliminary Urine,Clean Catch No growth - Less than 1,000 colonies/mL, Final report to follow.
[2020-01-27] MEDS ORDERED: MIDAZOLAM HCL 1 MG/ML 2ML VIAL ONE ×3 (13:50→14:58)
[2020-01-27] MEDS ORDERED: fentaNYL citrate 100 MCG/2 ML VIAL ONE (13:51)
[2020-01-27] MEDS ORDERED: LIDOCAINE HCL 2% 2 ML VIAL/AMP(20MG/ML) INFIL ONE (13:53)
[2020-01-27] MEDS ORDERED: PROPOFOL IV EMULSION 10 MG/ML 20 ML VIAL IV ONE ×2 (13:53→16:03)
--- NOTE | 2020-01-27 13:58 | History & Physical Bridge Note ---
Date of Service January 27, 2020 History & Physical Bridge Note I have examined the patient, reviewed the History & Physical and in the interval since the performance of the History & Physical I have noted the following changes of clinical significance: no changes noted
--- NOTE | 2020-01-27 14:01 | Orthopedic Progress Note ---
Date of Service January 27, 2020 Assessment & Plan (1) Left displaced femoral neck fracture: Acute posttraumatic left femoral neck fracture displaced. At her age with amount of activity that she performs best treatment option is a total hip replacement for fracture. We discussed the risks and benefits at length. Patient consented for surgery. Admission and Anticipated Discharge Date Admission Date: January 26, 2020 Subjective Pain in left hip with any movement Review of Systems Review of Systems: Noncontributory in usual state of health prior to fall Physical Exam Physical Exam: Left hip no bruising thin individual leg shortened actually rotated and traction boot able to flex and extend ankle Results & Data ([facility]) Vital Signs (Past 12 Hours) Vital Signs Temp Pulse Resp BP Pulse Ox 01/27/20 13:27 37.4 C 90 18 143/81 H 97 01/27/20 07:25 36.8 C 86 16 129/83 Diagnostic Findings Left hip displaced femoral neck fracture good femoral cortices
[2020-01-27] MEDS ORDERED: BACITRACIN INJ 50,000 UNIT VIAL ONE (14:11)
[2020-01-27] MEDS ORDERED: DEXAMETHASONE SOD INJ 4 MG/ML VIAL ONE (14:58)
[2020-01-27] MEDS ORDERED: ONDANSETRON INJ 2 MG/ML 2 ML VIAL ONE (14:58)
[2020-01-27] MEDS ORDERED: PHENYLEPHRINE 100MCG/ML 5ML SYR ONE (14:58)
--- NOTE | 2020-01-27 16:56 | Post Operative Brief Note ---
Immediate Post Op Note v1 Date of Surgery January 27, 2020 Pre & Post Diagnosis Operation Date: 01/27/20 07:00 Pre-Op Diagnosis: Left Displaced Femoral Neck Fracture Post-Op Diagnosis: Left Displaced Femoral Neck Fracture I identified the patient and participated in the time-out.: Yes Procedure Operation Date: 01/27/20 07:00 Actual Procedures p Left Total Hip Arthroplasty(Left) - Kumar Rosa MD Surgeon Kumar Rosa MD Anthropology Faculty Member Uziel HEATON Estimated Blood Loss 100 Findings Consistent with Post-Op Diagnosis Specimens Femoral head Drains Coleman Catheter (Present on admission) and Hemovac Drain (1/8" round drain; left hip) Anesthesia Type MAC Spinal Regional Complications none Disposition Accompanied Patient To Recovery: No Disposition: Recovery Room Overlapping Procedure I was immediately available: during the entire case.
--- NOTE | 2020-01-27 17:04 | Operative Report ---
Post Operative Report Pre & Post Diagnosis Operation Date: 01/27/20 07:00 Pre-Op Diagnosis: Left Displaced Femoral Neck Fracture Post-Op Diagnosis: Left Displaced Femoral Neck Fracture I identified the patient and participated in the time-out.: Yes Procedure Operation Date: 01/27/20 07:00 Actual Procedures p Left Total Hip Arthroplasty(Left) - Kumar Rosa MD Surgeon Kumar Rosa MD Marketing Services Manager Uziel HEATON Estimated Blood Loss 100 Findings Consistent with Post-Op Diagnosis Specimens Left femoral head Drains 2 Hemovac Anesthesia Type MAC Spinal Regional Complications none Disposition Accompanied Patient To Recovery: No Disposition: Recovery Room Indications 59-year-old active female suffered a fall and sustained a displaced left femoral neck fracture. Femoral cortical bone looks reasonably good. Patient has history of multiple spine procedures. Description of Procedure Patient taken to the operating room and anesthetized under spinal anesthesia and sedation. Patient was placed supine on the operating table. Patient had a Coleman catheter already placed preoperatively due to her fracture. Exam of the involved extremity demonstrated left leg shortened and externally rotated with some bruising over the greater trochanter and swelling of the greater trochanter. She was a petite and thin female..The patient was placed on a sacral pad and the involved leg was placed on a foot bump to flex knee 90 and hip 60. A Jones-type approach was performed to the hip. A longitudinal lateral incision was made over the hip. The skin was incised sharply. The fat was divided down to the fascia. Subcutaneous bleeders are cauterized. Trochanteric bursa was resected. A split was made in the gluteus medius muscle between the anterior 40% and posterior 60%. The minimus was divided longitudinally reflected off the underlying capsule. The capsule was incised down to the hip joint. An incision was made through the gluteus medius leaving a cuff of tendon for repair on the greater trochanter. The vastus lateralis was split longitudinally for about 3 cm. A muscular capsular flap was elevated off the hip. There was hemarthrosis from the femoral neck fracture and a comminuted femoral neck fracture with posterior neck comminution noted. The femoral neck fracture was significantly displaced. The femoral neck cut was made approximately 15 mm proximal to the lesser trochanter in neutral anteversion. Head and neck fragment were removed along with some comminuted posterior neck fragments and some capsular tissue.. The femoral head demonstrated normal findings normal articular surface. A sharp Hohmann retractor was placed superiorly, a blunt Fredo retractor was placed anteriorly a double angled inferior retractor was placed on the ischium. The acetabulum demonstrated no fracture normal acetabular anatomy with some apparent retroversion of the acetabulum with a more prominent anterior medial acetabulum. The acetabular labrum was resected and the ligamentum teres resected.The soft tissue in the acetabular fossa was resected. An anterior capsular release was performed. Some the capsule was resected for exposure. The first reamer was used to medialize reaming to the inner table and then sequential reamers for the acetabulum were used in 2 mm increments up to a size 46. I used the Listnerd total hip arthroplasty system using a PSL type cup. Trial reduction demonstrated a 46 millimeter cup was the appropriate size and fit. The placement of the final implant was performed after irrigating the acetabulum with antibiotic solution with pulsatile lavage. The position of the cup was approximately 15 anteversion 45 abduction. Good fixation was performed. Two 6.5 mm cancellus screws were placed in the posterior superior quadrant for further fixation through the cup. The acetabular liner was impacted into position. The Trident X3 polyethylene 0 degree 36 mm diameter neutral acetabular liner was used.The Orthomix coctail injected into the capsule around the acetabular component and deeper muscles. The retractors removed and attention was taken to the femur. The femur was exposed with flexion external rotation. A Canal reamer was used followed by sequential tapered Accolade 2 broaches up to a size 4. This had a good fit and fill. Trial reduction was performed with a 132 neck angle based on preoperative templating. A -2.5 neck length gave equal leg lengths and stable range of motion through full flexion flexion adduction and internal rotation and extension and external rotation. The trials removed and after irrigation again and the final implant was impacted which was the Accolade 2 size 4 with 132 degree neck angle. The Biolox ceramic head size 36-2.5 neck was used. After final implants replaced the reduction was noted to be stable. Betadine soak was used per protocol. 2 drains were placed deep. These were brought out laterally and connected to Hemovac. The minimus was closed with interrupted [id number] #1 Vicryl sutures. The medius was closed with transosseous #5 FiberWire sutures using Geo Sal suture technique. Lateral row soft tissue repair was performed with figure of 8 #2 FiberWire sutures. The medius split was closed with interrupted [id number] #1 Vicryl sutures. The vastus lateralis was closed with interrupted figure of eight #1Vicryl sutures. The fascia aden was closed with interrupted figure of eight #1 Vicryl sutures. The fat was closed with [id number] #2 Vicryl sutures. Skin was closed with eliza and sterile dressings were applied. The patient tolerated procedure well. Uziel HEATON, my physician digital marketing assistant, assisted me in the procedure with patient positioning And draping soft tissue retraction instrument management suture management and assisted in the outer layer closure and will participate in the postoperative care the patient. I attest to the content of the Intraoperative Record and any orders documented therein. Any exceptions are noted below.
--- NOTE | 2020-01-27 17:37 | Anesthesiology Progress Note ---
Date of Service January 27, 2020 Anesthesia Post Procedure Vital Signs Vital Signs: Temp Pulse Pulse Resp BP Pulse Ox 01/27/20 17:25 87 14 118/72 95 01/27/20 17:18 36.7 C 88 14 96/70 L 95 01/27/20 13:27 37.4 C 90 18 143/81 H 97 01/27/20 07:25 36.8 C 86 16 129/83 01/26/20 23:25 36.9 C 86 12 133/74 94 Pain Intensity Left Hip: Pain Intensity: 5 Left Leg: Pain Intensity: 10 Transfer of Care Handoff Completed per policy Notes Mental Status: alert / awake / arousable and participated in evaluation Patient Amnestic to Procedure: Yes Nausea / Vomiting: adequately controlled Pain: adequately controlled Airway Patency, RR, SpO2: stable & adequate BP & HR: stable & adequate Hydration State: stable & adequate Anesthetic Complications: no major complications apparent and Pt Satisfied with anesthetic care
--- NOTE | 2020-01-27 17:52 | XRay Report ---
SINGLE VIEW PELVIS; SINGLE VIEW LEFT HIP CLINICAL HISTORY: Postoperative examination. FINDINGS: An AP portable view of the hips and pelvis with a crosstable lateral portable view of the l eft hip are obtained. Comparison is made to study dated 01/26/2020. A bipolar left hip arthroplasty is in near-anatomic alignment. 2 cortical lag screws transfix the acetabular cup. No new fracture is id entified. There are expected postoperative changes overlying the left hip including skin clips, subcu taneous gas, a surgical drain, and soft tissue swelling. The joint space of the right hip is maintain ed. Phleboliths are observed in the pelvis. IMPRESSION: Expected postoperative findings status post left hip arthroplasty. No acute fracture is s een. ACT 112: Negative or not required by law. Electronically signed by: Antwan Love M.D. 01/27/2020 5:50 PM
[2020-01-27] MEDS ORDERED: ALUMINUM/MAGNESIUM SUSP 30 ML UDC PO PRN (18:27)
[2020-01-27] MEDS ORDERED: bisacodyL 10 MG SUPP PR PRN (18:27)
[2020-01-27] MEDS ORDERED: MAGNESIUM HYDROXIDE SUSP 30 ML UDC PO PRN (18:27)
[2020-01-27] MEDS ORDERED: NALOXONE HCL 0.4 MG/1 ML VIAL/CARP IV PRN (18:27)
--- NOTE | 2020-01-27 18:30 | Hospitalist Progress Note ---
Date of Service January 27, 2020 Assessment & Plan (1) Pre-op evaluation: (2) Left displaced femoral neck fracture: Patient is a 59 yr female who has significant PMH of chronic low back pain, history of cervical fusion, history of lumbar surgery, history of pancreatitis who presents to ED status post fall. Left femoral neck fracture Femur X ray:Mildly displaced left femoral neck fracture. No dislocation. S/P Left Total Hip Arthroplasty POD #0 by Pain control Monitor for postop anemia Bowel regimen to prevent constipation Orthopedics on board DVT prophylaxis as per Ortho (3) Leukocytosis: Likely reactive leukocytosis No obvious source of infection Monitor (4) Microscopic hematuria: ? 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 H/O Spinal Stenosis Follows with DVT Px: As per Ortho CODE STATUS Full code Disposition: As per Ortho Admission and Anticipated Discharge Date Admission Date: January 26, 2020 Subjective Patient is seen and examined at bedside Reports significant left hip pain Denies any chest pain, shortness of breath, dizziness, nausea, abdominal pain Plan for left hip arthroplasty today Offers no other complaints Review of Systems Review of Systems: All systems reviewed & are unremarkable except as noted in HPI & below Physical Exam Physical Exam: Physical Exam: Vitals signs as noted above General Appearance:Thin, frail, no apparent distress Head: normocephalic, Atraumatic Eyes: normal inspection, EOMI Neck: supple, Trachea midline Respiratory/Chest: Normal breath sounds, CTA, No accessory muscle use Cardiovascular: S1, S2, No murmur Abdomen/GI:Soft, Non tender, Bowel sounds present Extremities/Musculoskelatal:normal inspection, no edema, Left hip tender, decreased ROM, + traction boot Neurologic/Psych:AAOX3, grossly no focal neurological deficits Skin: normal color, warm Results & Data Results & Data ([facility]) Vital Signs (Past 12 Hours) Vital Signs Temp Pulse Pulse Resp BP Pulse Ox 01/27/20 18:00 85 15 101/69 98 01/27/20 17:45 37.0 C 83 14 110/71 97 01/27/20 17:35 85 14 117/81 100 01/27/20 17:25 87 14 118/72 95 01/27/20 17:18 36.7 C 88 14 96/70 L 95 01/27/20 13:27 37.4 C 90 18 143/81 H 97 01/27/20 07:25 36.8 C 86 16 129/83 Laboratory Results Short CBC 01/27/20 Range/Units 05:28 WBC 9.61 (4.8-10.8) K/uL Hgb 11.7 L (12.0-16.0) g/dL Hct 34.8 L (37-47) % Plt Count 207 (130-400) K/uL BMP 01/27/20 05:28 Sodium 141 Potassium 3.2 L Chloride 110 H Carbon Dioxide 26 BUN 4 L D Creatinine 0.63 Glucose 96 Calcium 8.0 L
[2020-01-27] MEDS: NICOTINE 14 MG/24 HR PATCH TD SCH (19:58)
[2020-01-27] MEDS: KETOROLAC TROMETHAMINE 15 MG/ML VIAL IV SCH (20:00)
[2020-01-27] MEDS: DULOXETINE HCL 60 MG CAP PO SCH (21:40)
[2020-01-27] MEDS: SENNA 8.6 MG TAB PO SCH (21:41)
[2020-01-27] MEDS: DOCUSATE SODIUM 100 MG CAP PO SCH (21:42)
[2020-01-27] MEDS: ASPIRIN 81 MG ECTAB PO SCH (21:42)
[2020-01-27] MEDS: CLINDAMYCIN 600 MG in DEXTROSE 5% 50 ML IV SCH (21:43)
[2020-01-27] MEDS: ACETAMINOPHEN 500 MG TAB PO SCH (21:43)
[2020-01-28] MEDS: KETOROLAC TROMETHAMINE 15 MG/ML VIAL IV SCH ×4 (00:40→18:02)
[2020-01-28] MEDS: CLINDAMYCIN 600 MG in DEXTROSE 5% 50 ML IV SCH (05:12)
[2020-01-28] MEDS: ACETAMINOPHEN 500 MG TAB PO SCH ×3 (05:12→22:11)
[2020-01-28 05:59] LABS: Calcium 7.9 mg/dl (8.5-10.1); Est GFR (African American) 114.2; Est GFR (Non-African American) 98.5; Magnesium 1.9 mg/dl (1.8-2.4); Potassium 4.5 mmol/L (3.5-5.1)
[2020-01-28 06:24] LABS: Hematocrit (blood only) 21.4 % (37-47); Hemoglobin 7.1 g/dL (12.0-16.0); Mean Corpuscular Hemoglobin 33.8 pg (25-34); Mean Corpuscular Hgb Conc 33.2 g/dL (32-36); Mean Corpuscular Volume 101.9 fL (80-100); Mean Platelet Volume 10.3 fL (7.4-10.4); Platelet Count 176 K/uL (130-400); RDW Coefficient of Variation 12.7 % (11.5-14.5); RDW Standard Deviation 46.8 fL (36.4-46.3); White Blood Count 11.08 K/uL (4.8-10.8)
[2020-01-28 06:26] LABS: Basophils # (auto) 0.01 K/uL (0-0.2); Basophils % (auto) 0.1 %; Immature Granulocytes # (auto) 0.04 K/uL (0.00-0.02); Immature Granulocytes % (auto) 0.4 %; Lymphocytes # (auto) 1.07 K/uL (1.2-3.4); Lymphocytes % (auto) 9.7 %; Monocytes # (auto) 1.39 K/uL (0.11-0.59); Monocytes % (auto) 12.5 %; Neutrophils # (auto) 8.57 K/uL (1.4-6.5); Neutrophils % (auto) 77.3 %; RBC Morphology Unremarkable
[2020-01-28] MEDS: SODIUM CHLORIDE 0.9% 1000ML 1,000 ML IV SCH (06:31)
[2020-01-28] MEDS: CHOLECALCIFEROL 1,000 UNITS 25 MCG TAB PO SCH (09:43)
[2020-01-28] MEDS: ASPIRIN 81 MG ECTAB PO SCH ×2 (09:43→21:12)
[2020-01-28] MEDS: CALCIUM CARBONATE 1250MG TAB PO SCH ×2 (09:43→21:13)
[2020-01-28] MEDS: DOCUSATE SODIUM 100 MG CAP PO SCH ×2 (09:43→21:11)
[2020-01-28] MEDS: MULTIVITAMIN TAB PO SCH (09:43)
--- NOTE | 2020-01-28 09:46 | Orthopedic Progress Note ---
Date of Service January 28, 2020 Assessment & Plan (1) Left displaced femoral neck fracture: H/H 7.1/21.4, denies dizziness lightheadedness currently Repeat H/H now per medicine Continue ASA PT/OT would like to avoid home health due to COVID and doesn't want to have other people in her home. PTx feels as though she is stable for her own home therapy and given home exercise program Will plan for discharge tomorrow if H/H stable and cleared by medicine. Admission and Anticipated Discharge Date Admission Date: January 26, 2020 Subjective POD #1 Left YEFRI s/p hip fracture. She notes this am she felt a little unbalanced when first getting up and out of bed. She is resting comfortably in chair just after therapy and denies CP, SOB, dizziness, lightheadedness. Physical Exam Physical Exam: Toes mobile, NVI. Calves soft, non tender. Silverlon Dressing in place. hemovac drain Results & Data ([facility]) Vital Signs (Past 12 Hours) Vital Signs Temp Pulse Resp BP Pulse Ox 01/28/20 07:35 37.1 C 91 H 18 112/70 99 01/28/20 03:57 37.4 C 82 16 95/60 L 98 01/27/20 22:56 36.9 C 92 H 16 94/61 L 99
[2020-01-28 10:01] LABS: Hematocrit (blood only) 22.9 % (37-47); Hemoglobin 7.7 g/dL (12.0-16.0)
--- NOTE | 2020-01-28 10:45 | Anesthesiology Progress Note ---
Date of Service January 28, 2020 Anesthesia Post Procedure Vital Signs Vital Signs: Temp Pulse Pulse Resp BP Pulse Ox 01/28/20 07:35 37.1 C 91 H 18 112/70 99 01/28/20 03:57 37.4 C 82 16 95/60 L 98 01/27/20 22:56 36.9 C 92 H 16 94/61 L 99 01/27/20 21:08 37.1 C 99 H 18 97/64 L 99 01/27/20 20:08 37.4 C 107 H 18 86/51 L 98 01/27/20 19:12 37.0 C 112 H 18 97/60 L 94 01/27/20 18:15 36.6 C 92 H 14 102/67 98 01/27/20 18:00 85 15 101/69 98 01/27/20 17:45 37.0 C 83 14 110/71 97 01/27/20 17:35 85 14 117/81 100 01/27/20 17:25 87 14 118/72 95 01/27/20 17:18 36.7 C 88 14 96/70 L 95 01/27/20 13:27 37.4 C 90 18 143/81 H 97 Pain Intensity Left Hip: Pain Intensity: 5 Left Leg: Pain Intensity: 5 Notes Mental Status: alert / awake / arousable and participated in evaluation Nausea / Vomiting: adequately controlled Pain: adequately controlled Airway Patency, RR, SpO2: stable & adequate BP & HR: stable & adequate Hydration State: stable & adequate
[2020-01-28] MEDS ORDERED: SODIUM CHLORIDE 0.9% 1000ML 1,000 ML IV ONE ×2 (17:37→17:38)
--- NOTE | 2020-01-28 17:44 | Hospitalist Progress Note ---
Date of Service January 28, 2020 Assessment & Plan (1) Pre-op evaluation: (2) Left displaced femoral neck fracture: Patient is a 59 yr female who has significant PMH of chronic low back pain, history of cervical fusion, history of lumbar surgery, history of pancreatitis who presents to ED status post fall. Left femoral neck fracture Femur X ray:Mildly displaced left femoral neck fracture. No dislocation. S/P Left Total Hip Arthroplasty POD #1 by Pain control Monitor for postop anemia Bowel regimen to prevent constipation Orthopedics on board DVT prophylaxis as per Ortho Continue PT/OT Acute blood loss anemia Secondary to postop Hemoglobin 7.7 Patient prefers to minimize blood transfusions as able Will transfuse PRBCs if hemoglobin drops less than 7 or becomes symptomatic Monitor H&H (3) Leukocytosis: SIRS Low threshold to start antibiotics if fever reoccurs IV fluids for Hypotension (4) Microscopic hematuria: ? 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 H/O Spinal Stenosis Follows with DVT Px: As per Ortho CODE STATUS Full code Disposition: As per Ortho Admission and Anticipated Discharge Date Admission Date: January 26, 2020 Subjective Patient is seen and examined at bedside States feeling well this morning Had fever this afternoon Hemoglobin dropped to 7.7 today Patient prefers to minimize/avoid blood transfusions as possible Left hip pain is better Denies any chest pain, shortness of breath, dizziness, nausea, abdominal pain Review of Systems Review of Systems: All systems reviewed & are unremarkable except as noted in HPI & below Physical Exam Physical Exam: Physical Exam: Vitals signs as noted above General Appearance:Thin, frail, no apparent distress Head: normocephalic, Atraumatic Eyes: normal inspection, EOMI Neck: supple, Trachea midline Respiratory/Chest: Normal breath sounds, CTA, No accessory muscle use Cardiovascular: S1, S2, No murmur Abdomen/GI:Soft, Non tender, Bowel sounds present Extremities/Musculoskelatal:normal inspection, no edema, Left hip surgical site in dressing Neurologic/Psych:AAOX3, grossly no focal neurological deficits Skin: normal color, warm Results & Data Results & Data ([facility]) Vital Signs (Past 12 Hours) Vital Signs Temp Pulse Resp BP Pulse Ox 01/28/20 15:14 36.9 C 93 H 16 96/60 L 100 01/28/20 13:31 37.7 C H 104 H 18 109/61 100 01/28/20 13:30 38.2 C H 01/28/20 07:35 37.1 C 91 H 18 112/70 99 Laboratory Results Short CBC 01/28/20 01/28/20 Range/Units 05:00 09:37 WBC 11.08 H (4.8-10.8) K/uL Hgb 7.1 L D 7.7 L (12.0-16.0) g/dL Hct 21.4 L 22.9 L (37-47) % Plt Count 176 (130-400) K/uL BMP 01/28/20 05:00 Sodium 140 Potassium 4.5 D Chloride 111 H Carbon Dioxide 23 BUN 9 D Creatinine 0.61 Glucose 121 H Calcium 7.9 L
[2020-01-28] MEDS: NICOTINE 14 MG/24 HR PATCH TD SCH (18:00)
[2020-01-28] MEDS: TRAMADOL HCL 50 MG TABLET PO PRN (18:40)
[2020-01-28 20:11] LABS: Hemoglobin 6.2 g/dL (12.0-16.0)
[2020-01-28] MEDS: DULOXETINE HCL 60 MG CAP PO SCH (21:12)
[2020-01-28] MEDS: SENNA 8.6 MG TAB PO SCH (21:13)
[2020-01-28] MEDS ORDERED: SODIUM CHLORIDE 0.9% 250 ML IV PRN (21:30)
[2020-01-29] MEDS: KETOROLAC TROMETHAMINE 15 MG/ML VIAL IV SCH ×3 (00:50→12:52)
[2020-01-29] MEDS: ACETAMINOPHEN 500 MG TAB PO SCH ×2 (05:08→14:03)
[2020-01-29 05:35] LABS: Basophils # (auto) 0.02 K/uL (0-0.2); Basophils % (auto) 0.2 %; Eosinophils # (auto) 0.09 K/uL (0-0.5); Eosinophils % (auto) 1.1 %; Hemoglobin 7.9 g/dL (12.0-16.0); Immature Granulocytes # (auto) 0.02 K/uL (0.00-0.02); Immature Granulocytes % (auto) 0.2 %; Lymphocytes # (auto) 1.73 K/uL (1.2-3.4); Lymphocytes % (auto) 20.7 %; Mean Corpuscular Hemoglobin 33.5 pg (25-34); Mean Corpuscular Hgb Conc 34.3 g/dL (32-36); Mean Corpuscular Volume 97.5 fL (80-100); Mean Platelet Volume 10.4 fL (7.4-10.4); Monocytes # (auto) 1.27 K/uL (0.11-0.59); Monocytes % (auto) 15.2 %; Neutrophils # (auto) 5.21 K/uL (1.4-6.5); Neutrophils % (auto) 62.6 %; Platelet Count 166 K/uL (130-400); RDW Coefficient of Variation 15.2 % (11.5-14.5); RDW Standard Deviation 54.2 fL (36.4-46.3); Red Blood Count 2.36 M/uL (4.2-5.4); White Blood Count 8.34 K/uL (4.8-10.8)
[2020-01-29 06:00] LABS: RBC Morphology Unremarkable
[2020-01-29 06:13] LABS: BUN Creatinine Ratio 14.9 (10-20); Calcium 7.9 mg/dl (8.5-10.1); Est GFR (African American) 114.2; Est GFR (Non-African American) 98.5; Potassium 3.7 mmol/L (3.5-5.1)
[2020-01-29] MEDS: CALCIUM CARBONATE 1250MG TAB PO SCH (08:47)
[2020-01-29] MEDS: DOCUSATE SODIUM 100 MG CAP PO SCH (08:47)
[2020-01-29] MEDS: CHOLECALCIFEROL 1,000 UNITS 25 MCG TAB PO SCH (08:47)
[2020-01-29] MEDS: ASPIRIN 81 MG ECTAB PO SCH (08:47)
[2020-01-29] MEDS: MULTIVITAMIN TAB PO SCH (08:48)
[2020-01-29] MEDS: TRAMADOL HCL 50 MG TABLET PO PRN ×2 (08:52→14:52)
--- NOTE | 2020-01-29 09:51 | Orthopedic Progress Note ---
Date of Service January 29, 2020 Assessment & Plan (1) Left displaced femoral neck fracture: Hgb dropped to 6.2 last evening and given 1 unit of PRBC. Hgb up to 7.9 this am. I discussed with patient that given the drop yesterday it may be best to monitor for the night and dc tomorrow however she is very upset that she can't sleep due to her back in the bed and just wants to be at home to recover. Since medicine is on board will appreciate their input on discharge. Possibly repeat H/H this evening and if stable can be discharged vs DC in the am. Continue ASA PT/OT would like to avoid home health due to COVID and doesn't want to have other people in her home. PTx feels as though she is stable for her own home therapy and given home exercise program Admission and Anticipated Discharge Date Admission Date: January 26, 2020 Subjective Patient sitting in chair. Upset that she may not be able to leave today. She did receive 1 unit of PRBC yesterday due to drop to 6.2. She notes she remained asymptomatic despite the drop. She denies dizziness, lightheadedness, CP, SOB. Physical Exam Physical Exam: Toes mobile, NVI. Calves soft, non tender. Silverlon Dressing in place. Results & Data ([facility]) Vital Signs (Past 12 Hours) Vital Signs Temp Pulse Pulse Resp BP BP Pulse Ox 01/29/20 07:05 36.9 C 79 16 118/68 99 01/29/20 01:11 36.7 C 77 16 106/63 99 01/29/20 00:46 36.7 C 81 16 109/67 100 01/28/20 23:40 36.8 C 83 16 111/68 99 01/28/20 23:10 36.9 C 84 16 110/72 100 01/28/20 22:24 36.8 C 90 18 102/66 98 01/28/20 22:06 37.4 C 91 H 18 104/66 99
[2020-01-29 13:06] LABS: Hematocrit (blood only) 23.5 % (37-47); Hemoglobin 8.2 g/dL (12.0-16.0)
--- NOTE | 2020-01-29 13:17 | Hospitalist Progress Note ---
Date of Service January 29, 2020 Assessment & Plan (1) Pre-op evaluation: (2) Left displaced femoral neck fracture: Patient is a 59 yr female who has significant PMH of chronic low back pain, history of cervical fusion, history of lumbar surgery, history of pancreatitis who presents to ED status post fall. Left femoral neck fracture Femur X ray:Mildly displaced left femoral neck fracture. No dislocation. S/P Left Total Hip Arthroplasty POD #2 by Pain control Monitor for postop anemia Bowel regimen to prevent constipation Orthopedics on board DVT prophylaxis as per Ortho Continue PT/OT Pain is controlled Acute blood loss anemia Secondary to postop S/P 1 unit PRBCs Hemoglobin 8.2 today Monitor H&H Advised to re-check CBC in 1-2 days as outpatient Patient denies any bleeding issues (3) Leukocytosis: SIRS Low threshold to start antibiotics if fever reoccurs IV fluids for Hypotension (4) Microscopic hematuria: ? 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 H/O Spinal Stenosis Follows with DVT Px: As per Ortho CODE STATUS Full code Disposition: As per Ortho Admission and Anticipated Discharge Date Admission Date: January 26, 2020 Subjective Patient is seen and examined at bedside Leg pain at surgical site is controlled Complains of chronic back pain Hemoglobin dropped overnight, received 1 unit PRBC Hemoglobin stable today Advised to get CBC rechecked in 1 to 2 days as as outpatient Denies chest pain, shortness of breath, dizziness, nausea, abdominal pain Offers no other complaints Review of Systems Review of Systems: All systems reviewed & are unremarkable except as noted in HPI & below Physical Exam Physical Exam: Physical Exam: Vitals signs as noted above General Appearance:Thin, frail, no apparent distress Head: normocephalic, Atraumatic Eyes: normal inspection, EOMI Neck: supple, Trachea midline Respiratory/Chest: Normal breath sounds, CTA, No accessory muscle use Cardiovascular: S1, S2, No murmur Abdomen/GI:Soft, Non tender, Bowel sounds present Extremities/Musculoskelatal:normal inspection, no edema, Left hip surgical site in dressing Neurologic/Psych:AAOX3, grossly no focal neurological deficits Skin: normal color, warm Results & Data Results & Data ([facility]) Vital Signs (Past 12 Hours) Vital Signs Temp Pulse Resp BP Pulse Ox 05/24/20 07:05 36.9 C 79 16 118/68 99 Laboratory Results Short CBC 01/28/20 01/29/20 01/29/20 Range/Units 19:50 04:53 12:54 WBC 8.34 (4.8-10.8) K/uL Hgb 6.2 L* 7.9 L 8.2 L (12.0-16.0) g/dL Hct 18.0 L* 23.0 L 23.5 L (37-47) % Plt Count 166 (130-400) K/uL BMP 01/29/20 04:53 Sodium 143 Potassium 3.7 D Chloride 115 H Carbon Dioxide 22 BUN 9 Creatinine 0.61 Glucose 95 Calcium 7.9 L
--- NOTE | 2020-01-31 07:59 | Discharge Summary ---
Date of Service January 31, 2020 Admission HPI Per Admitting Provider Patient is a 59-year-old female who states that she was at home last night taking care of her cat. At one point she stepped to the side and lost her balance and fell onto her left side. She had immediate pain in her left hip and groin and her was helping her get around last night. She states that she was unable to bear weight and called her PCP this morning. They referred her to the emergency room. She was brought by her to the emergency room and was seen by the staff. X-rays were taken and was found that she had a displaced left femoral neck fracture. She had no lightheadedness, dizziness, chest pain or shortness of breath pre-or post fall. She denies hitting her head or losing consciousness. Currently she complains of left hip pain with motion. Admission Exam Per Admitting Provider Constitutional: WD/WN, vitals as above Eyes: PERRL, conjunctivae normal, anicteric sclerae ENMT: external ear and nose normal, oropharynx normal Neck: trachea midline, no thyromegaly Respiratory: normal respiratory effort, lungs clear to auscultation Cardiovascular: Rate/Rhythm: regular rate and regular rhythm Gastrointestinal (Abdomen): normal bowel sounds, soft, nontender, no hepatosplenomegaly Musculoskeletal: On examination of her left lower extremity, the leg is shortened and externally rotated compared to the right. She has good range of motion of her left foot and ankle. No attempts were made to go through range of motion of the left knee or hip due to fracture. Left knee is nontender on pal pation. Right lower extremity is within normal limits and is nontender at the hip knee and ankle. Range of motion is within normal limits. She is nontender at the shoulders, elbows, and wrists. Range of motion is within normal limits. Distal pulses are equal bilaterally of the upper and lower extremities. Denies any increased back pain from the fall. There is no gross motor or sensory loss seen at this time. Skin: no rashes, warm and dry Psychiatric: Orientation: alert and oriented x 3 Principal Diagnosis Left displaced femoral neck fracture. Discharge Exam Toes mobile, NVI. Calves soft, non tender. Silverlon Dressing in place. Discharge Data Allergies Allergy/AdvReac Type Severity Reaction Status Date / Time Penicillins Allergy Mild RASH Verified 01/26/20 10:58 Consultations 01/26/20 10:36 ED Decision to Admit Stat 01/26/20 11:27 Consult Internal Medicine Routine 01/26/20 11:29 Consult Case Management - Discharge Planning Routine Procedures Performed Operation Date: 01/27/20 07:00 Actual Procedures p Left Total Hip Arthroplasty(Left) - Kumar Rosa MD Ordered Studies 01/27/20 13:43 US - OR guided needle placemen Routine Hospital Course (1) Left displaced femoral neck fracture: Patient was admitted on the above-noted date with the above-noted fracture. [facility] and postoperative medical coverage. Patient was cleared for surgery and was taken to the operating room on the following day on 01/27/2020. A left total hip arthroplasty was performed at that time and the patient tolerated procedure well.On her first postoperative day, she felt a little unbalanced when first getting up out of bed however she was resting comfortably in her chair after therapy. She denies shortness of breath chest pain dizziness or lightheadedness at the time. Toes are mobile, neurovascular is intact, calves are soft nontender. Silverlon dressing was in place. Hemovac drain was in place. Total Hemovac output was 185 mL's. As noted, she was started on her PT and OT protocols. Patient was hoping to go home at the time of discharge. Hemoglobin was 7.7 that morning and did drop to 6.2 that evening. A unit of PRBCs was transfused bringing up the hemoglobin to 8.2 by the second postoperative day in the afternoon. On her second postoperative day she was sitting up in her chair. She was continued on her PT and OT protocols. She was ambulating 150 feet and had gone up and down one 6 inch step with a rolling walker. She was otherwise remaining stable. [facility] felt the patient was stable for discharge with plans for a follow-up H&H in a few days as an outpatient. She was thusly discharged home on 01/29/2020. Total Time Total Time Spent Total Time Spent (In Minutes): 5 Discharge Plan Discharge Items Patient Disposition: Home - Self-Care Reason For Visit: LEFT DISPLACED FEMORAL NECK FRACTURE Discharge Diagnosis: left YEFRI Activity: Per Instructions section Non-emergency contact: Surgeon Call non-emergency contact if: your pain is not controlled, you have a fever, your temperature is above 101.5, your wound has increased redness and your wound has increased drainage Follow-up/Referrals: Masha Vega, [Primary Care Provider] - Diet: Regular Ambulatory Orders: Complete Blood Count no Diff (Timed) Timeframe: 2 Days Location: Determined by Patient Ordered By: Demarco Del Real Attending Provider Instructions: ACTIVITY RECOMMENDATIONS: SELF CARE INSTRUCTIONS AFTER TOTAL HIP REPLACEMENT Until the incision and soft tissues around your hip have healed, there is a possibility that the hip prosthesis could dislocate. A. Observe the following precautions to prevent dislocation: 1. Don't bend your hip greater than 90 degrees. 2. Avoid crossing your legs or ankles while standing or lying. 3. Sit with your feet placed 6 inches apart. 4. When sitting, keep your knees below your hips. Sit on a firm surface, avoid deep, soft chairs and couches. Use an elevated toilet seat in the bathroom. 5. Don't bend over at the waist. Use a long handled shoehorn and a sock aid to help you put on your shoes and socks. A nutritional services director can help you brick picker objects that are too high or too low to reach. 6. Keep car riding to a minimum for at least one month after surgery. B. Your balance may be shaky for a while. Use crutches or a walker until directed by your doctor. C. Use hand rails when walking on stairs. D. Wear low heeled shoes with non-slip soles. E. Be sure that your floors are free of things that could trip you - throw rugs, electrical cords, small objects. Avoid wet and waxed floors, especially with crutches and canes. F. Try to walk several times a day with rest periods between. G. Continue with all the exercises taught to you in the hospital. Again, make walking a part of your daily routine. H. It is okay to shower if minimal to no drainage from incision. No baths. Do not soak wound. I. Physical Therapy as instructed by your Physician. SPECIAL CARE INSTRUCTIONS: VERY IMPORTANT TO READ AND REVIEW A. You may still be at risk for phlebitis and blood clots. 1. Wear surgical stockings (AAMIR hose) for one month, 20 hours daily, after surgery to improve circulation and reduce swelling. 2. Take Coumadin, Xarelto, Lovenox or Aspirin (blood thinning medications), as directed by your doctor. 3. Have a pro-time (blood test) drawn according to your doctor's instructions. B. We encourage and will assist you in choosing a home-health agency of your choice. Home health nurses and therapists will monitor your temperature, wound healing and progress in exercise and walking. Home health nurses may also draw the blood for the pro-time test. They may instruct you in decreasing or increasing the amount of Coumadin you take. C. You must take antibiotics before having dental work, bladder, bowel and other surgery. Your doctor will provide you with a permanent card to carry describing precautions. D. [facility] if you have a temperature of 101 or greater, redness or swelling around the incision, cloudy drainage from inc ision, or sudden increase in pain in your hip, not relieved by your regular pain medication. E. Please call the office at if you have any concerns or questions about your operation or recovery. FOLLOW UP VISIT: If appointment is not already scheduled: 10-14 days post op for an appt with Angel Fox PA-C Please call [facility] to make a follow-up appointment for One month after your surgery at . Pending Studies at Discharge: No Stand-Alone Forms: [facility], Opioid Pain Management, Smoking Cessation Medications and DC Order Prescriptions: New aspirin 81 mg Tablet,Delayed Release (Dr/Ec) 81 mg PO BID 30 Days Qty: 60 RF: 0 acetaminophen 500 mg Tablet 1,000 mg PO Q8 30 Days Qty: 180 RF: 0 nicotine 7 mg/24 hr Patch 24 Hour 14 mg transdermal Q24H Qty: 5 RF: 0 oxycodone 5 mg Tablet 5 - 10 mg PO Q4H PRN (Reason: pain) Qty: 30 RF: 0 tramadol 50 mg Tablet 50 mg PO Q6H PRN (Reason: pain) Qty: 30 RF: 0 multivitamin [Daily-[place]] Tablet 1 tab PO QAM 30 Days Qty: 30 RF: 0 sennosides [Senokot] 8.6 mg Tablet 17.2 mg PO HS 30 Days Qty: 60 RF: 0 Continued Centrum Silver Women 8 mg iron-400 mcg-300 mcg tablet 1 tab PO QAM RF: 0 calcium carbonate 600 mg calcium (1,500 mg) tablet 1,200 mg PO BID RF: 0 cholecalciferol (vitamin D3) [Vitamin D3] 125 mcg (5,000 unit) Tablet 125 mcg PO QAM RF: 0 duloxetine 60 mg capsule,delayed release(DR/EC) 60 mg PO HS RF: 0 Discontinued tramadol 50 mg tablet 50 - 100 mg PO TID PRN (Reason: pain) 30 Days Qty: 180 RF: 0 acetaminophen [Tylenol Arthritis Pain] 650 mg Tablet Extended Release 650 mg PO Q12H PRN (Reason: Pain) RF: 0 Discharge Orders: Discharge Order (Routine); Ordered 01/29/20 Ordered By: Ara Durand/Other Patient Handouts: DVT Prevention Admission Data Admit Date/Time: 01/26/20 11:22 Attending Provider: Jaydon Box Admit Provider: Jaydon Box Primary Care Provider: Masha Veag Other Providers: Demarco Le ; Jaydon Box ; Mc Thomas Other Interventions: Discharge Summary Assessment (RN) Last Done: 01/29/20 14:28 DC Date/Time DO NOT enter until pt leaves facility: 01/29/20 15:34
== END 2020-01-29 15:34 | disposition home or self-care (01) | DRG 470 ==
LOC: ED 09:35 → 3E 11:22

== ENCOUNTER 2023-08-19 06:12 | Observation (INO) ==
--- NOTE | 2023-08-04 16:24 | PAT Medication Instructions ---
Medication Instructions Date of Service August 04, 2023 Home Medications mvxobhuf-sphi-qlxn 8 mg-folic 400 mcg-K 50 mcg-lutein 300 mcg tablet (Centrum Silver Women) 1 tab PO QAM aspirin 81 mg capsule 81 mg PO QAM calcium carbonate 600 mg-vitamin D3 20 mcg (800 unit) chewable tablet (Caltrate 600 plus D) 1 tab PO QAM celecoxib 200 mg capsule (Celebrex) 200 mg PO QAM cholecalciferol (vitamin D3) 25 mcg (1,000 unit) capsule (Vitamin D3) 25 mcg PO QAM diltiazem HCl 180 mg capsule,24 hr,extended release 180 mg PO QAM duloxetine 30 mg capsule,delayed release 30 mg PO HS duloxetine 60 mg capsule,delayed release 60 mg PO HS ASK your surgeon for instructions celecoxib 200 mg capsule (Celebrex) 200 mg PO QAM ASK your prescriber and surgeon aspirin 81 mg capsule 81 mg PO QAM DO NOT take the morning of surgery chasjmmx-qtdw-jtvh 8 mg-folic 400 mcg-K 50 mcg-lutein 300 mcg tablet (Centrum Silver Women) 1 tab PO QAM calcium carbonate 600 mg-vitamin D3 20 mcg (800 unit) chewable tablet (Caltrate 600 plus D) 1 tab PO QAM cholecalciferol (vitamin D3) 25 mcg (1,000 unit) capsule (Vitamin D3) 25 mcg PO QAM Take morning of surgery With a small sip of water, OTHERWISE NOTHING TO EAT OR DRINK AFTER MIDNIGHT: diltiazem HCl 180 mg capsule,24 hr,extended release 180 mg PO QAM Take evening before surgery duloxetine 30 mg capsule,delayed release 30 mg PO HS duloxetine 60 mg capsule,delayed release 60 mg PO HS Other Notes If you have any questions please call us at [phone] or [phone] or [phone] or [phone]
--- NOTE | 2023-08-05 12:12 | Anesthesiology Consultation ---
Date of Service August 05, 2023 Assessment & Plan (1) Pre-op evaluation: - PCP pre-operative evaluation 08/03/23 [facility]: "...Anterior cervical discectomy and fusion C3-5, possible C5-6 surgery...low medical risk for the listed procedure..." - cardiology pre-operative evaluation 07/24/23 [facility]: "...runs of PSVT on a recent Zio monitor...cold hands...concerning for Buerger's disease...reasonable low risk of cardiovascular event for this surgery and she could proceed. No additional cardiac testing will change this risk assessment..." Chart Review Chart Review: Acceptable Risk for Surgery and Patient seen in Pre Admission Testing Teaching & Discussion Pre-Anesthesia Teaching/Discussion Notes: Instructed NPO after midnight before surgery, except medications with 15 cc of water. Medication instructions provided according to the PAT guidelines. History Surgery Operation Date: 08/19/23 12:55 Proposed Procedures p Anterior Cervical Discectomy and Fusion C3-C5, Possible C5-C6 Spinal Cord Monitoring - Kodak Ochoa DO Height/Weight Height: 5 ft 2 in Weight: 43.6 kg Allergies Allergy/AdvReac Type Severity Reaction Status Date / Time Penicillins Allergy Mild RASH Verified 08/04/23 15:33 clindamycin Allergy Unknown Verified 08/05/23 12:38 ibuprofen Allergy advised Verified 08/04/23 15:33 against taking due to hx of pancreatitis Medications Home Medications Medication Instructions Recorded Confirmed Last Taken uwqeuwde-disu-nhit 8 mg-folic 400 1 tab PO QAM 04/21/19 08/04/23 01/25/20 mcg-K 50 mcg-lutein 300 mcg tablet (Centrum Silver Women) aspirin 81 mg capsule 81 mg PO QAM 08/04/23 08/04/23 Unknown calcium carbonate 600 mg-vitamin 1 tab PO QAM 08/04/23 08/04/23 Unknown D3 20 mcg (800 unit) chewable tablet (Caltrate 600 plus D) celecoxib 200 mg capsule (Celebrex) 200 mg PO QAM 08/04/23 08/04/23 Unknown cholecalciferol (vitamin D3) 25 25 mcg PO QAM 08/04/23 08/04/23 Unknown mcg (1,000 unit) capsule (Vitamin D3) diltiazem HCl 180 mg capsule,24 180 mg PO QAM 08/04/23 08/04/23 Unknown hr,extended release duloxetine 30 mg capsule,delayed 30 mg PO HS 08/04/23 08/04/23 Unknown release duloxetine 60 mg capsule,delayed 60 mg PO HS 08/04/23 08/04/23 Unknown release Past Medical History Medical History (Updated 08/05/23 @ 12:24 by Ivory Quispe PA-C) History of blood transfusion annalise-operatively left YEFRI 01/2020 History of pancreatitis several yrs ago PSVT (paroxysmal supraventricular tachycardia) follows with [facility] cardiology Hypertension white coat hypertension Cervical radiculopathy denies change or worsening Lumbar canal stenosis Lumbar radiculopathy denies change or worsening Cervical stenosis of spinal canal (03/30/14) Patient denies h/o stroke, seizures, heart attack, heart failure, DM, or blood clots/DVTs. Exercise / Class Metabolic Activity II 4-5 Yardwork/Stairs/Walk up hill (denies chest discomfort or shortness of breath with 1 FOS) Past Family History Family History Other Foster child Past Surgical History Surgical History Hx of breast biopsy benign History of Hx of hand surgery rt hand History of esophagogastroduodenoscopy (EGD) Hx of colonoscopy History of total left hip arthroplasty Hx of cervical spine surgery 2014 History of lumbar surgery x3 Past Anesthesia History No Hx of Anesthesia Complications and No Family Hx of Anesthesia Complications History of PONV No Hx of PONV and No Hx of Motion Sickness Social History Smoking Status: Current every day smoker (-advised) tobacco type: cigarettes Smoking cigarettes per day: 10 Do You Dip or Chew Tobacco: No Hx Alcohol Use: Yes Alcohol type: beer alcohol intake frequency: a few times a week Hx Substance Use: No substance use type: does not use Review of Systems Patient denies chest pain, shortness of breath, dyspnea on exertion, snoring, witnessed apneas, reflux, fever, chills, cough, wheezing, or palpitations. Physical Exam Vital Signs Vitals BP 152/87 P 95 TEMP 98.3 SP02 96% on RA RESP 18 Physical Patient resting comfortably in chair in no acute distress, alert and oriented, responding appropriately throughout visit Full cervical extension range of motion without pain TMD 3.5 finger breadths Mallampati Score 2 Dentition: several caps/crowns, denies chipped or loose teeth, implants or bridges Lungs: normal respiratory effort. Good air movement, clear throughout to auscultation, no adventitious breath sounds Cardiac: regular rate and rhythm, no murmurs noted Carotid arteries: negative bruit bilat Lab Results Anesthesia Preop Results Results Anesthesia Widget: PT 10.9 Seconds (9.0-12.0) 08/05/23 PTT 26.9 Seconds (21.0-31.0) 08/05/23 INR 1.0 (0.9-1.1) 08/05/23 Urine Color Yellow 08/05/23 Urine Appearance Clear (Clear) 08/05/23 Urine pH 7.0 (4.5-7.5) 08/05/23 Urine Specific [place] 1.007 (1.000-1.030) 08/05/23 Urine Protein Negative (Negative) 08/05/23 Urine Glucose (UA) Negative (Negative) 08/05/23 Urine Ketones Negative (Negative) 08/05/23 Urine Blood Negative (Negative) 08/05/23 Urine Nitrite Negative (Negative) 08/05/23 Urine Bilirubin Negative (Negative) 08/05/23 Urine Urobilinogen Negative (Negative) 08/05/23 Urine Leukocyte Esterase Negative (Negative) 08/05/23 Blood Type A Positive 08/05/23 Antibody Screen NEGATIVE 08/05/23 Testing Laboratory Results 07/17/2023 WBC: 11 H/H: 13/39 PLATELETS: 352 SODIUM: 140 POTASSIUM: 4.5 CHLORIDE: 101 CO2: 27 BUN: 16 CREATININE: 0.7 GLUCOSE: 89 Electrocardiogram Date: 08/05/23 NSR, rate 93 bpm Left axis deviation Chest X-Ray Date: 08/05/23 No acute process. Echocardiogram Date: 07/22/23 EF 55-59% Normal LV wall motion Mild pulmonary regurgitation Moderate tricuspid regurgitation Grade I diastolic dysfunction No evidence of pulmonary hypertension Cervical Spine Date: 07/09/23 x-ray 1. Intact C5-6 ACDF. 2. Moderate degenerative disc disease at C3-4, progressed from prior. Other Testing Cardiac event monitor 05/19/23 min HR of 64 bpm, max HR of 184 bpm, and avg HR of 86 bpm. Predominant underlying rhythm was Sinus Rhythm. Slight P wave morphology changes were noted. 23 Supraventricular Tachycardia runs occurred, the run with the fastest interval lasting 11 beats with a max rate of 184 bpm, the longest lasting 15.1 secs with an avg rate of 125 bpm. Isolated SVEs were rare (<1.0%), SVE Couplets were rare (<1.0%), and SVE Triplets were rare (<1.0%). Isolated VEs were rare (<1.0%, 508), VE Couplets were rare (<1.0%, 2), and VE Triplets were rare (<1.0%, 2). 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 No symptoms reported.
[~2023-08-19 06:12] MED LIST changes: +ACETAMINOPHEN 500 MG TAB PO SCH; -BUSP5TAB59 PO; -CALC500C70 PO; -CYCL10TA6 PO; +CeleBREX 200 MG CAP PO SCH; -DULO60CA44 PO; -GABA-113 PO; +GABAPENTIN 600 MG DOSE PO SCH; +General Order Problem(s) SCH; -LACTATED RINGER'S 1000ML 1,000 ML IV SCH; +LR 15ML/HR IV SCH; +LR 60ML/HR IV SCH; -MULT-845 PO; -POLY1POW2 PO; -PRLSR20 PO; -TRAM-10 PO; -VANCOMYCIN 1GM/270ML NSS 270 ML IV SCH; +VANCOMYCIN HCL 750 MG in SODIUM CHLORIDE 0.9% 250 ML IV SCH
[2023-08-19] MEDS ORDERED: ONDANSETRON INJ 2 MG/ML 2 ML VIAL ONE (06:52)
[2023-08-19] MEDS ORDERED: LIDOCAINE 2% 2 ML VIAL/AMP(20MG/ML) INFIL ONE (06:52)
[2023-08-19] MEDS ORDERED: DEXAMETHASONE SOD INJ 4 MG/ML VIAL ONE (06:52)
[2023-08-19] MEDS ORDERED: PROPOFOL IV EMULSION 10 MG/ML 20 ML VIAL IV ONE (06:52)
[2023-08-19] MEDS ORDERED: fentaNYL citrate PF 100 MCG/2 ML VIAL ONE ×2 (06:52→08:17)
[2023-08-19] MEDS ORDERED: MIDAZOLAM HCL 1 MG/ML 2ML VIAL ONE (06:52)
[2023-08-19] MEDS ORDERED: ALBUTEROL 0.083% NEBU SOLN 3 ML VIAL NEB STA (07:20)
[2023-08-19] MEDS ORDERED: ceFAZolin 330 MG/ML 1 GM VIAL ONE (07:46)
--- NOTE | 2023-08-19 07:49 | History & Physical Bridge Note ---
Date of Service August 19, 2023 History & Physical Bridge Note I have examined the patient, reviewed the History & Physical and in the interval since the performance of the History & Physical I have noted the following changes of clinical significance: no changes noted
--- NOTE | 2023-08-19 07:51 | History & Physical Report ---
Date of Service August 19, 2023 Assessment & Plan (1) Cervical stenosis of spinal canal: Plan: Anterior cervical discectomy and fusion C3-C5, possible C5-C6 Plan Anterior cervical discectomy and fusion C3-C5, possible C5-C6 History of Present Illness Chief Complaint: Neck and arm pain Primary Care Provider: Masha Vega DO This is a 63-year-old female known to the presents with chronic persistent neck and arm pain after failing course of nonoperative care she is here for surgical invention. Allergies Allergy/AdvReac Type Severity Reaction Status Date / Time Penicillins Allergy Mild RASH Verified 08/19/23 06:33 clindamycin Allergy Unknown Verified 08/19/23 06:33 ibuprofen Allergy advised Verified 08/19/23 06:33 against taking due to hx of pancreatitis Home Medications Medication Instructions Recorded Confirmed Type esttbafs-uvka-lpdb 8 mg-folic 400 1 tab PO QAM 04/21/19 08/19/23 History mcg-K 50 mcg-lutein 300 mcg tablet (Centrum Silver Women) aspirin 81 mg capsule 81 mg PO QAM 08/04/23 08/19/23 History calcium carbonate 600 mg-vitamin 1 tab PO QAM 08/04/23 08/19/23 History D3 20 mcg (800 unit) chewable tablet (Caltrate 600 plus D) celecoxib 200 mg capsule (Celebrex) 200 mg PO QAM 08/04/23 08/19/23 History cholecalciferol (vitamin D3) 25 25 mcg PO QAM 08/04/23 08/19/23 History mcg (1,000 unit) capsule (Vitamin D3) diltiazem HCl 180 mg capsule,24 180 mg PO QAM 08/04/23 08/19/23 History hr,extended release duloxetine 30 mg capsule,delayed 30 mg PO HS 08/04/23 08/19/23 History release duloxetine 60 mg capsule,delayed 60 mg PO HS 08/04/23 08/19/23 History release Past Med/Surg History Medical History History of blood transfusion annalise-operatively left YEFRI 01/2020 History of pancreatitis several yrs ago PSVT (paroxysmal supraventricular tachycardia) follows with [facility] cardiology Hypertension white coat hypertension Cervical radiculopathy denies change or worsening Lumbar canal stenosis Lumbar radiculopathy denies change or worsening Cervical stenosis of spinal canal (03/30/14) Surgical History Hx of breast biopsy benign History of Hx of hand surgery rt hand History of esophagogastroduodenoscopy (EGD) Hx of colonoscopy History of total left hip arthroplasty Hx of cervical spine surgery 2014 History of lumbar surgery x3 Family History Other Foster child Social History Smoking Status: Current every day smoker (-advised) Tobacco Type: Cigarettes packs per day: 1; Cigarettes Per Day: 10; Second Hand Exposure: No; Do You Dip or Chew Tobacco: No; Tobacco Cessation Education Requested by Patient: No Hx Alcohol Use: Yes Alcohol type: beer Hx Substance Use: No Preferred Language: Venezuelan Communication Ability: Effective Visual Impairment: Limited Hearing Ability: Normal 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
[2023-08-19] MEDS ORDERED: FLUMAZENIL 0.1 MG/1 ML 10 ML VIAL IV PRN (07:55)
[2023-08-19] MEDS ORDERED: NALOXONE HCL 0.4 MG/1 ML VIAL/CARP IV PRN ×2 (07:55→11:36)
[2023-08-19] MEDS ORDERED: HYDROmorphone INJ 1 MG/ML SYRINGE IV PRN ×2 (07:55→11:36)
[2023-08-19] MEDS ORDERED: ONDANSETRON INJ 2 MG/ML 2 ML VIAL IV PRN ×2 (07:55→11:36)
[2023-08-19] MEDS ORDERED: ATROPINE SULFATE 0.1 MG/ML 10ML SYR IV PRN (07:55)
[2023-08-19] MEDS ORDERED: ePHEDrine sulfate 50 MG/ML AMP IV PRN (07:55)
[2023-08-19] MEDS ORDERED: PROMETHAZINE HCL 12.5 MG in SODIUM CHLORIDE 0.9% 50 ML IV PRN ×2 (07:55→11:36)
[2023-08-19] MEDS ORDERED: fentaNYL citrate PF 100 MCG/2 ML VIAL IV PRN (07:55)
[2023-08-19] MEDS ORDERED: LABETALOL HCL IV 5 MG/ML 20ML IV PRN (07:55)
[2023-08-19] MEDS ORDERED: SUGAMMADEX SODIUM 200 MG/2 ML VIAL IV ONE (08:19)
[2023-08-19] MEDS ORDERED: FLOSEAL HEMOSTATIC MATRIX 10ML TOP ONE (08:41)
[2023-08-19] MEDS ORDERED: PHENYLEPHRINE 100MCG/ML 10ML SYR IV ONE (08:57)
[2023-08-19] MEDS ORDERED: SURGICEL ABSORB HEMOSTAT 2IN X 14IN TOP ONE (09:28)
--- NOTE | 2023-08-19 09:51 | Operative Report ---
Post Operative Report Pre & Post Diagnosis Operation Date: 08/19/23 07:45 Pre-Op Diagnosis: Cervical spinal stenosis with myeloradiculopathy Post-Op Diagnosis: Same I identified the patient and participated in the time-out.: Yes Procedure Operation Date: 08/19/23 07:45 Actual Procedures #1 removal of anterior cervical plate C5-C6. #2 exploration of fusion C5-C6. #3 C4 corpectomy with bilateral foraminotomies. #4 anterior cervical arthrodesis C3-C5. #5 placement of peek 21 mm cage C3-C5. #6 placement locally harvested morselized autograft combined with I factor in the interbody cage. #7 application of K2 M plate screws from C3-C5. Surgeon Kodak Ochoa, Diving Coach Ara Allen Estimated Blood Loss 50 Findings Consistent with Post-Op Diagnosis Specimens None Indications This is a 63-year-old female who presents above-mentioned diagnosis of failed course of nonoperative care and having progressive myelopathic symptoms she is here for surgical intervention. Description of Procedure Patient is identified informed consent obtained. Patient was then taken to the operative suite underwent patient placed in supine position on the OR table with her head Beckman head of insight. All bony promises well-padded eyes inspected to ensure no external precipice upon the. This point the anterior cervical spine was prepped and draped in a sterile fashion. I then placed a longitudinal incision along the right anterior aspect the cervical spine from C3-C5. I then removed with the C5-C6 cervical plate explored the fusion mass noted to be mature and intact. Then performed a complete discectomy of C3-C4 out to the uncovertebral notch bilaterally. Was unable to adequately decompress the canal to a satisfactory level and elected to perform a complete corpectomy of C4 by removing the disc at C4-5 out to the of the lesions bilaterally removing the entire vertebral body of C4 including all posterior fibers longitudinal ligament. This allowed me to undercut the C3 vertebral body for additional decompression. Endplates were then burred to subcortical bleeding bone and a 21 mm peek cage filled with locally harvested morselized autograft and I factor tapped in position. A K2 M plate and screws was then applied with the assistance of fluoroscopy. The incision was then copiously irrigated explored to ensure no damage to surrounding structures or remaining bleeding. 10 round LAI drain inserted. The incision was then closed with 2 Vicryl in the fascia and a 4 Monocryl for final skin closure. Steri-Strips sterile dressing placed. Patient waken taken to PACU in stable condition. Please note Ara Allen was present at the entire procedure involved the patient positioning complex portions of the surgery and possible closure and spinal cord monitoring was utilized at the procedure no changes noted. I attest to the content of the Intraoperative Record and any orders documented therein. Any exceptions are noted below.
--- NOTE | 2023-08-19 10:54 | Fluoroscopy Report ---
INTRAOPERATIVE RADIOGRAPHS CLINICAL HISTORY: Cervical spinal fusion. Fluoro time: 10 seconds. Ka,r: 0.59 mGy FINDINGS: 2 spot fluoroscopic views of the cervical spine are presented. There is evidence of corpect javi at C4, with anterior spinal fusion at C3-C5. The orthopedic hardware appears intact. An endotrach eal tube is in place. IMPRESSION: Intraoperative images from cervical spinal fusion surgery as above. Electronically signed by: Antwan Love M.D. 08/19/2023 10:52 AM
--- NOTE | 2023-08-19 11:02 | Anesthesiology Progress Note ---
Date of Service August 19, 2023 Anesthesia Post Procedure Vital Signs Vital Signs: Temp Pulse Pulse Pulse Resp BP BP 08/19/23 10:55 69 18 158/87 H 08/19/23 10:45 69 18 149/82 H 08/19/23 10:40 68 22 155/81 H 08/19/23 10:35 80 16 164/90 H 08/19/23 10:34 81 185/95 H 08/19/23 10:25 87 18 186/99 H 08/19/23 10:15 76 18 164/82 H 08/19/23 10:05 77 16 165/85 H 08/19/23 09:56 36.8 C 78 20 155/88 H 08/19/23 07:41 90 18 08/19/23 06:39 36.6 C 94 H 20 166/98 H Pulse Ox O2 Del Method O2 Flow Rate 08/19/23 10:55 99 Nasal Cannula 2 08/19/23 10:45 97 Nasal Cannula 2 08/19/23 10:40 97 Nasal Cannula 2 08/19/23 10:35 98 Nasal Cannula 2 08/19/23 10:34 08/19/23 10:25 93 Room Air 08/19/23 10:15 99 Oxymask 11 08/19/23 10:05 100 Oxymask 11 08/19/23 09:56 100 Oxymask 11 08/19/23 07:41 92 Room Air 08/19/23 06:39 94 Room Air Pain Intensity Bilateral Arm: Pain Intensity: 5 Transfer of Care Handoff Completed per policy Notes Mental Status: alert / awake / arousable Patient Amnestic to Procedure: Yes Nausea / Vomiting: adequately controlled Pain: adequately controlled Airway Patency, RR, SpO2: stable & adequate BP & HR: stable & adequate Hydration State: stable & adequate Anesthetic Complications: no major complications apparent
[2023-08-19] MEDS: LACTATED RINGER'S 1,000 ML IV SCH ×2 (11:30→20:15)
[2023-08-19] MEDS ORDERED: bisacodyL 10 MG SUPP PR PRN (11:36)
[2023-08-19] MEDS ORDERED: DO NOT ADMINISTER FLU VACCINE PRN (11:36)
[2023-08-19] MEDS ORDERED: FAMOTIDINE 20 MG TAB PO PRN (11:36)
[2023-08-19] MEDS ORDERED: dexAMETHasone 8 MG in SYRINGE 0 ML IV PRN (11:36)
[2023-08-19] MEDS ORDERED: hydrOXYzine HCl 25 MG TAB PO PRN (11:36)
[2023-08-19] MEDS ORDERED: SOD PHOSPHATE/SOD BIPHOSPHATE ENEMA 132 ML BTL PR PRN (11:36)
[2023-08-19] MEDS ORDERED: oxyCODONE HCL IR 5 MG TAB (IMMEDIATE RELEASE) PO PRN (11:36)
[2023-08-19] MEDS ORDERED: RACEPINEPHRINE 2.25% NEBU SOLN 0.5 ML VIAL INH PRN (11:36)
[2023-08-19] MEDS ORDERED: ACETAMINOPHEN 500 MG TAB PO PRN (11:36)
[2023-08-19] MEDS ORDERED: MAGNESIUM HYDROXIDE SUSP 30 ML UDC PO PRN (11:36)
[2023-08-19] MEDS ORDERED: ACETAMINOPHEN 1,000 MG/100 ML VIAL IV PRN (11:36)
[2023-08-19] MEDS ORDERED: LORazepam 0.5 MG TAB PO PRN (11:36)
[2023-08-19] MEDS ORDERED: METOCLOPRAMIDE HCL INJ 5 MG/ML 2 ML VIAL IV PRN (11:36)
[2023-08-19] MEDS ORDERED: diphenhydrAMINE Capsule 25 MG CAP PO PRN (11:36)
[2023-08-19] MEDS ORDERED: DO NOT ADMINISTER PNEUMOCOCCAL VACCINE PRN (11:36)
[2023-08-19] MEDS ORDERED: LORazepam 0.5 MG in SYRINGE 0.25 ML IV PRN (11:36)
[2023-08-19] MEDS ORDERED: ALUMINUM/MAGNESIUM SUSP 30 ML UDC PO PRN (11:36)
[2023-08-19] MEDS ORDERED: HYDROmorphone INJ 0.5 MG/0.5 ML SYR IV PRN (11:36)
[2023-08-19] MEDS ORDERED: ONDANSETRON 4 MG OD TAB PO PRN (11:36)
[2023-08-19] MEDS ORDERED: VANCOMYCIN CONSULT ACTIVE PRN (12:23)
--- NOTE | 2023-08-19 13:45 | Hospitalist Consultation ---
Date of Consultation August 19, 2023 Assessment & Plan (1) Cervical radiculopathy: POD#0 C3-C6 A[address]F [address] Dr[address] Ochoa Activity and wound care orders as per ortho Pain control with bowel regimen PT/OT Monitor H/H for acute blood loss anemia and transfuse blood products PRN EBL 50 cc (2) Lumbar canal stenosis: (3) PSVT (paroxysmal supraventricular tachycardia): Chronic, stable Continue diltiazem (4) Tobacco abuse: Nicotine patch ordered Smoking cessation encouraged DVT PROPHYLAXIS TEDs/SCDs as per spine Ortho Patient seen in collaboration with Dr. Garces. Thank you for this consultation. We will follow the patient with you during their hospital stay. You can reach a [facility] the [facility] [facility] role in [place] Text. Supervising Physician Co-Signing Physician Notes Attending addendum The patient was seen and examined in medical floor She is a status post C4 corpectomy, hardware removal C5-C6 and the spinal cord monitoring on 08/19/2023 Has a cervical collar in place Complains of pain in the neck but does not have any radiculopathic symptoms On examination Lying in bed comfortably Hemodynamically stable Neck-stable with cervical collar Chest-clear to auscultate bilaterally Heart-S1-S2, regular Abdomen-benign Extremities-negative for any edema Her labs, imaging studies and medications reviewed Status post cervical surgery remains stable Other medical conditions remained stable as above Agree with assessment and plan as outlined above by Meme Garces History of Present Illness Reason for Consultation: Postmedical management Requesting Physician: Dr. Ochoa Attending Physician: Kodak Ochoa DO History of Present Illness 63-year-old female with PMH of cervical and lumbar stenosis, tobacco abuse, paroxysmal SVT, and other problems listed below who is s/p C3-C6 ACDF today by Dr. Ochoa. History is obtained from the patient and review of outpatient PCP and cardiology records. Postoperatively, the patient is doing well. She reports her pain is well-controlled. She reports of bilateral hand tingling that is improved since surgery. Denies difficulty swallowing and shortness of breath. No chest pain. Denies lightheadedness and dizziness. No abdominal pain or nausea. Patient reports she has not voided since surgery. Allergies Allergy/AdvReac Type Severity Reaction Status Date / Time Penicillins Allergy Mild RASH Verified 08/19/23 06:33 clindamycin Allergy Unknown Verified 08/19/23 06:33 ibuprofen Allergy advised Verified 08/19/23 06:33 against taking due to hx of pancreatitis Home Medications Medication Instructions Recorded Confirmed Type frjglldu-gvpz-oxya 8 mg-folic 400 1 tab PO QAM 04/21/19 08/19/23 History mcg-K 50 mcg-lutein 300 mcg tablet (Centrum Silver Women) aspirin 81 mg capsule 81 mg PO QAM 08/04/23 08/19/23 History calcium carbonate 600 mg-vitamin 1 tab PO QAM 08/04/23 08/19/23 History D3 20 mcg (800 unit) chewable tablet (Caltrate 600 plus D) celecoxib 200 mg capsule (Celebrex) 200 mg PO QAM 08/04/23 08/19/23 History cholecalciferol (vitamin D3) 25 25 mcg PO QAM 08/04/23 08/19/23 History mcg (1,000 unit) capsule (Vitamin D3) diltiazem HCl 180 mg capsule,24 180 mg PO QAM 08/04/23 08/19/23 History hr,extended release duloxetine 30 mg capsule,delayed 30 mg PO HS 08/04/23 08/19/23 History release duloxetine 60 mg capsule,delayed 60 mg PO HS 08/04/23 08/19/23 History release oxycodone 5 mg tablet 5 mg PO Q6H PRN pain #30 tabs 08/19/23 Rx tramadol 50 mg tablet 50 mg PO Q6H PRN pain, moderate 08/19/23 Rx #30 tabs Patient History Medical History (Updated 08/19/23 @ 13:43 by AMITA Mcdaniel) PSVT (paroxysmal supraventricular tachycardia) follows with [facility] Left displaced femoral neck fracture History of blood transfusion annalise-operatively left YEFRI 01/2020 History of pancreatitis several yrs ago Hypertension white coat hypertension Cervical radiculopathy denies change or worsening Lumbar canal stenosis Lumbar radiculopathy denies change or worsening Cervical stenosis of spinal canal (03/30/14) Surgical History Hx of breast biopsy benign History of Hx of hand surgery rt hand History of esophagogastroduodenoscopy (EGD) Hx of colonoscopy History of total left hip arthroplasty Hx of cervical spine surgery 2014 History of lumbar surgery x3 Family History Other Foster child Social History Smoking Status: Current every day smoker (-advised) Tobacco Type: Cigarettes packs per day: 1; Cigarettes Per Day: 10; Second Hand Exposure: No; Do You Dip or Chew Tobacco: No; Tobacco Cessation Education Requested by Patient: No Hx Alcohol Use: Yes Alcohol type: beer Hx Substance Use: No Preferred Language: Cymraes Communication Ability: Effective Visual Impairment: Limited Hearing Ability: Normal Devops Developer Required: No Beliefs That Will Affect Care: None marital status: Current Living Situation: Spouse Other Information That Helps Us Care for You: No Feels Safe at Home: Yes Safety Concerns: Feels Safe At This Time Assistive Devices: Glasses Physical Exam Constitutional: WD/WN, vitals as above no acute distress Eyes: PERRL, conjunctivae normal, anicteric sclerae ENMT: external ear and nose normal, oropharynx normal Neck: S/p neck surgery, C-spine collar intact, anterior neck dressing CDI, drain in place draining bloody drainage Respiratory: normal respiratory effort, lungs clear to auscultation Cardiovascular: Rate/Rhythm: regular rate and regular rhythm Vessels: normal peripheral pulses Extremities: no edema Gastrointestinal (Abdomen): normal bowel sounds, soft, nontender, no hepatosplenomegaly Musculoskeletal: no cyanosis or clubbing, extremities motor strength 5/5 Skin: no rashes, warm and dry Neurologic: PERRL, EOMI, accommodation nl, no face palsy, no dysarthria Psychiatric: A+Ox3, euthymic affect Results & Data Results & Data Vital Signs (Past 12 Hours) Vital Signs Temp Pulse Pulse Pulse Resp BP BP 08/19/23 13:15 80 16 133/78 08/19/23 12:22 16 08/19/23 11:48 16 08/19/23 11:16 67 14 08/19/23 11:15 37.1 C 67 16 08/19/23 11:05 36.8 C 65 15 08/19/23 10:55 69 18 08/19/23 10:45 69 18 08/19/23 10:40 68 22 08/19/23 10:35 80 16 08/19/23 10:34 81 185/95 H 08/19/23 10:25 87 18 08/19/23 10:15 76 18 08/19/23 10:05 77 16 08/19/23 09:56 36.8 C 78 20 08/19/23 07:41 90 18 08/19/23 06:39 36.6 C 94 H 20 BP Pulse Ox O2 Del Method O2 Flow Rate 08/19/23 13:15 96 Room Air 08/19/23 12:22 136/76 99 Nasal Cannula 2 08/19/23 11:48 137/78 99 Nasal Cannula 2 08/19/23 11:16 98 Nasal Cannula 2 08/19/23 11:15 145/75 H 98 Nasal Cannula 2 08/19/23 11:05 151/78 H 99 Nasal Cannula 2 08/19/23 10:55 158/87 H 99 Nasal Cannula 2 08/19/23 10:45 149/82 H 97 Nasal Cannula 2 08/19/23 10:40 155/81 H 97 Nasal Cannula 2 08/19/23 10:35 164/90 H 98 Nasal Cannula 2 08/19/23 10:34 08/19/23 10:25 186/99 H 93 Room Air 08/19/23 10:15 164/82 H 99 Oxymask 11 08/19/23 10:05 165/85 H 100 Oxymask 11 08/19/23 09:56 155/88 H 100 Oxymask 11 08/19/23 07:41 92 Room Air 08/19/23 06:39 166/98 H 94 Room Air
[2023-08-19] MEDS: NICOTINE 21 MG/24 HR TDSY TD SCH (14:49)
[2023-08-19] MEDS: dexAMETHasone 6 MG in SYRINGE 0 ML IV SCH ×2 (15:13→20:13)
[2023-08-19] MEDS ORDERED: CLINDAMYCIN/D5W 600 MG/50 ML BAG IV SCH (16:00)
[2023-08-19] MEDS: traMADol HCL 50 MG TABLET PO PRN (17:25)
[2023-08-19] MEDS ORDERED: VANCOMYCIN HCL 750 MG in SODIUM CHLORIDE 0.9% 250 ML IV SCH (19:00)
[2023-08-19] MEDS ORDERED: VANCOMYCIN HCL 750 MG in SODIUM CHLORIDE 0.9% 500 ML IV SCH (19:00)
[2023-08-19] MEDS ORDERED: DULoxetine HCL 60 MG CAP PO SCH (21:00)
[2023-08-19] MEDS ORDERED: DULoxetine HCL 30 MG CAP PO SCH (21:00)
[2023-08-19] MEDS ORDERED: DOCUSATE SODIUM/SENNA 50/8.6MG TAB PO SCH (21:00)
[2023-08-20] MEDS: traMADol HCL 50 MG TABLET PO PRN (01:48)
[2023-08-20] MEDS: dexAMETHasone 6 MG in SYRINGE 0 ML IV SCH (03:10)
[2023-08-20] MEDS ORDERED: VANCOMYCIN HCL 750 MG in SODIUM CHLORIDE 0.9% 250 ML IV SCH (06:00)
[2023-08-20] MEDS ORDERED: POLYETHYLENE (MIRALAX) 17 GM PACK PO SCH (06:00)
[2023-08-20 06:08] LABS: Hematocrit (blood only) 36.4 % (37.0-47.0); Hemoglobin 12.1 g/dl (12.0-16.0); Mean Corpuscular Hemoglobin 33.5 pg (25.0-34.0); Mean Corpuscular Hgb Conc 33.2 g/dL (32.0-36.0); Mean Corpuscular Volume 100.8 fL (80.0-100.0); Mean Platelet Volume 10.6 fL (9.4-12.4); Platelet Count 283 K/uL (130-400); RDW Coefficient of Variation 12.8 % (11.5-14.5); Red Blood Count 3.61 M/uL (4.20-5.40); White Blood Count 11.32 K/ul (4.8-10.8)
[2023-08-20 06:24] LABS: Calcium 8.6 mg/dl (8.6-10.3); Creatinine Clr Calc Pharmacy 67.4 ml/min; Est GFR (African American) 113.5 ml/min; Potassium 4.2 mmol/L (3.5-5.1)
[2023-08-20] MEDS: NICOTINE 21 MG/24 HR TDSY TD SCH (08:09)
[2023-08-20] MEDS ORDERED: CHOLECALCIFEROL 1,000 UNITS 25 MCG TAB PO SCH (09:00)
[2023-08-20] MEDS ORDERED: ASPIRIN 81 MG ECTAB PO SCH (09:00)
[2023-08-20] MEDS ORDERED: CALCIUM 600MG + VIT D 400 IU TAB PO SCH (09:00)
[2023-08-20] MEDS ORDERED: dilTIAZem HCL 180 MG CAPCR PO SCH (09:00)
--- NOTE | 2023-08-20 10:31 | Discharge Summary ---
Date of Service August 20, 2023 Admission HPI Per Admitting Provider This is a 63-year-old female known to the presents with chronic persistent neck and arm pain after failing course of nonoperative care she is here for surgical invention. Principal Diagnosis Cervical spinal stenosis with myelopathy Discharge Data Allergies Allergy/AdvReac Type Severity Reaction Status Date / Time Penicillins Allergy Mild RASH Verified 08/19/23 06:33 clindamycin Allergy Unknown Verified 08/19/23 06:33 ibuprofen Allergy advised Verified 08/19/23 06:33 against taking due to hx of pancreatitis Consultations 08/19/23 11:36 Consult Hospitalist Routine Procedures Performed Operation Date: 08/19/23 07:45 Actual Procedures p C4 Corpectomy, Hardware Removal C5-C6, Spinal Cord Monitoring(Not Applicable) - Kodak Ochoa DO Ordered Studies 08/19/23 07:45 FL cervical 2-3V Routine Hospital Course (1) Cervical stenosis of spinal canal: Patient went anterior cervical corpectomy tolerated as well as taken orthopedic for postop labor postop issues swallowing well. No hoarseness. Good strength testing. LAI drain decreasing probably. Subsequent discharge home. Discharge orders instructions found in chart for further review. Total Time Total Time Spent Total Time Spent (In Minutes): 20 minutes Discharge Plan Discharge Items Patient Disposition: Home - Self-Care Reason For Visit: Spinal Stenosis, Cervical Region, Cervical Disc Di Discharge Diagnosis: Cervical spinal stenosis with myeloradiculopathy Activity: As commented below Non-emergency contact: Primary Care Provider Call non-emergency contact if: you have any medication questions Follow-up/Referrals: Masha Vega DO [Primary Care Provider] - Diet: Regular Addtl Attending Provider Instructions: ACTIVITY RECOMMENDATIONS: SELF CARE INSTRUCTIONS AFTER CERVICAL FUSIONS 1. No smoking. Smoking drastically decreases the chance of a solid fusion. 2. No bending, lifting more than 5 pounds, or twisting (roll like a log when turning in bed). 3. You may shower 3 days after surgery. Thoroughly dry wound. Do not soak in the tub. 4. Cervical collar: Must be worn at all times including sleeping. You may remove the brace only to bath, eat and if you are sitting in a recliner. 5. Please walk as much as you can for exercise. Gradually increase the distance that you walk as your endurance increases. SPECIAL CARE INSTRUCTIONS: VERY IMPORTANT TO READ AND REVIEW A. Do not take any anti-inflammatory medications (i.e. Indocin, Advil, Aspirin, Naprosyn, Aleve, Motrin, etc.) as these may inhibit the chance of a solid fusion. Tylenol is okay to take. B. Your surgical incision has been closed with a cosmetic suture under the skin that will dissolve in about 6 weeks. In 14 days, you can use a pair of clean scissors and cut the suture that is left outside of the skin at the ends of your incision. C. Complications are uncommon, but please contact us if you have any signs or symptoms of: 1. wound infection (fever higher than 102.5 degrees F, redness, separation of wound, drainage, or increasing pain from the incision) 2. blood clots in legs (pain, swelling, redness and warmth in legs) 3. urinary tract infection (fever higher than 102.5 degrees, burning upon urination or increased frequency of urination) 4. nerve problems (inability to walk on your toes or heels, numbness, loss of bowel or bladder control) 5. any other symptoms that concern you. D. Please call the office at if you have any concerns or questions about your operation or recovery. MANAGING PAIN AFTER SPINAL SURGERY 1. Narcotic medication is intended for short-term use and will be provided for surgical pain. Surgical pain usually lasts for a period of 4-6 weeks. Narcotic medication includes Percocet, Vicodin, Darvocet, Tylenol #3 or Lortab. 2. Longer-term pain is more appropriately treated with non-narcotic medication such as Tylenol ES. 3. Muscle spasm is not appropriately treated with narcotics. Muscle relaxers such as Soma, Flexeril or Skelaxin can be used along with Tylenol ES. 4. Remember that we all live with some "aches and pains". This is not unusual or uncommon after an injury or as we get older. 5. We will provide appropriate medication within the normal guidelines of their prescribed use. We will also be very cautious and aware of potential abuse and extended duration of patients' medication needs. 6. Please allow 2-3 days to process refills. Prescriptions will not be mailed but must be picked up at the office. FOLLOW UP VISIT: Keep your scheduled follow-up appointment. Any questions, please call the office at . Pending Studies at Discharge: No Stand-Alone Forms: My [facility], Smoking Cessation Medications and DC Order Prescriptions: New tramadol 50 mg tablet 50 mg PO Q6H PRN (Reason: pain, moderate) Qty: 30 0RF oxycodone 5 mg tablet 5 mg PO Q6H PRN (Reason: pain) Qty: 30 0RF Continued Centrum Silver Women 8 mg iron-400 mcg-300 mcg tablet 1 tab PO QAM celecoxib [Celebrex] 200 mg Capsule 200 mg PO QAM diltiazem HCl 180 mg Capsule,Extended Release 24 Hr 180 mg PO QAM cholecalciferol (vitamin D3) [Vitamin D3] 25 mcg (1,000 unit) Capsule 25 mcg PO QAM duloxetine 30 mg Capsule,Delayed Release(Dr/Ec) 30 mg PO HS Caltrate 600 plus D 600 mg-20 mcg (800 unit) Tablet,Chewable 1 tab PO QAM aspirin 81 mg Capsule 81 mg PO QAM duloxetine 60 mg capsule,delayed release(DR/EC) 60 mg PO HS Discharge Orders: Discharge Order (Routine); Ordered 08/20/23 Ordered By: Kodak Ochoa Admission Data Admit Date/Time: 08/19/23 09:55 Attending Provider: Kodak Ochoa Admit Provider: Kodak Ochoa Primary Care Provider: Masha Vega Other Providers: Umm Ro; Cheikh Young
--- NOTE | 2023-08-20 11:55 | Hospitalist Progress Note ---
Date of Service August 20, 2023 Assessment & Plan (1) Cervical radiculopathy: Plan: POD#1 C3-C6 ACDF by Dr. Ochoa Activity and wound care orders as per ortho Pain control with bowel regimen PT/OT Monitor H/H for acute blood loss anemia and transfuse blood products PRN EBL 50 cc Hemoglobin 12.1 today (2) Lumbar canal stenosis: (3) PSVT (paroxysmal supraventricular tachycardia): Plan: Chronic, stable Continue diltiazem (4) Tobacco abuse: Plan: Nicotine patch ordered Smoking cessation encouraged DVT PROPHYLAXIS TEDs/SCDs as per spine Ortho Disposition: Per primary. Thank you for this consultation. We will follow the patient with you during their hospital stay. You can reach a member of the [facility] Hospitalist Team 30/03 via [facility] in [place] Text. Admission and Anticipated Discharge Date Admission Date: August 19, 2023 Subjective Patient is seen and examined at bedside. Patient was lying semiupright in bed, on room air, not in any acute distress. Resting comfortably. Patient reports eating okay, is moving gas, has not moved bowel. Patient reports operative site pain under control. Physical Exam Physical Exam: Constitutional: WD/WN, vitals as a carlene no acute dis tress Eyes: PERRL, conjunctiva e normal, anicteri c sclerae ENMT: external ear and n ose normal, oropha rynx normal Neck: S/p neck surgery, C-spine collar in tact, anterior nec k dressing CDI, dr blackmon in place -mini mal serosanguineou s collection noted . Respiratory: normal respiratory effort, lungs perez ar to auscultation Cardiovascular: Rate/Rhythm: regul ar rate and regula r rhythm Vessels: normal peripheral pulses Extremiti es: no edema Gastrointestinal ( Abdomen): normal bowel sound s, soft, nontender , no hepatosplenom egaly Musculoskeletal: no cyanosis or clu bbing, extremities motor strength 5/ 5 Skin: no rashes, warm an d dry Neurologic: PERRL, EOMI, accom modation nl, no fa ce palsy, no dysar thria Psychiatric: A+Ox3, euthymic af fect Results & Data Results & Data Vital Signs (Past 12 Hours) Vital Signs Temp Pulse Resp BP Pulse Ox O2 Del Method 08/20/23 10:53 106 H 16 98 Room Air 08/20/23 09:53 36.9 C 169/90 H 08/20/23 09:49 100 H 16 95 Room Air 08/20/23 07:51 104 H 16 92 Room Air 08/20/23 07:21 36.5 C 98 H 16 163/90 H 96 Room Air 08/20/23 03:22 87 18 94 Room Air 08/20/23 03:15 36.6 C 80 16 152/90 H 95 Room Air 08/20/23 01:53 36.7 C 84 16 146/88 H 94 Room Air
== END 2023-08-20 12:30 | disposition home or self-care (01) ==
LOC: ASU 06:12 → 3E 06:12

== ENCOUNTER 2023-10-06 06:16 | Observation (INO) ==
--- NOTE | 2023-09-30 10:14 | Anesthesiology Consultation ---
Date of Service September 30, 2023 Assessment & Plan (1) Encounter for pre-operative examination: Chart Review Chart Review: Acceptable Risk for Surgery and Patient NOT seen in Pre Admission Testing -Infectious Disease screening: Per PAT nursing assessment on 09/30/23. No known infectious disease contacts in past 10 days or current infectious disease symptoms. No recent travel outside the country. Anterior Cervical Discectomy and Fusion C3-C5, Hardware Removal C5-6 08/19/23= Done under [facility] with grade 2 view with glide scope #3. ETT #7.0. Seen by PCP 08/03/2023 = seen for preop evaluation. Revised cardiac risk index scoreno risk factors0.4% (95% CL: 0.10.8). Stop bang score 1. PSVTstable. Hypertensionstable. Encourage smoking cessation. Patient functional status equal to 4 METS. Patient is low medical risk for listed procedure. Patient seen by cardiology 07/24/2023 = seen for follow-up on PSVT. Patient also to be getting spinal cervical surgery in the near future. History of cigarette smoking with probable COPD and early vascular disease. Cervical radiculopathy. Hypertension. PSVT. Did highly encourage smoking cessation. In regard to her upcoming cervical surgery, I think she is a reasonable low risk of cardiovascular event for the surgery and she should proceed. No additional cardiac testing will change the risk assessment. Continue current medications. Will follow-up after surgeries are completed. History Surgery Operation Date: 10/06/23 12:15 Proposed Procedures p C3-C5 Removal of Hardware, Reinstrumentation C3-C5, with Spinal Cord Monitoring - Kodak Ochoa, Height/Weight Height: 5 ft 2 in Weight: 43.545 kg Allergies Allergy/AdvReac Type Severity Reaction Status Date / Time Penicillins Allergy Mild RASH Verified 09/30/23 09:16 clindamycin Allergy Unknown Verified 09/30/23 09:16 ibuprofen Allergy advised Verified 09/30/23 09:16 against taking due to hx of pancreatitis Medications Home Medications Medication Instructions Recorded Confirmed Last Taken [id number] 8 mg-folic 400 1 tab PO QAM 04/21/19 09/30/23 08/18/23 06:30 mcg-K 50 mcg-lutein 300 mcg tablet (Centrum Silver Women) aspirin 81 mg capsule 81 mg PO QAM 08/04/23 09/30/23 08/12/23 calcium carbonate 600 mg-vitamin 1 tab PO QAM 08/04/23 09/30/23 08/18/23 06:30 D3 20 mcg (800 unit) chewable tablet (Caltrate 600 plus D) celecoxib 200 mg capsule (Celebrex) 200 mg PO QAM 08/04/23 09/30/23 08/18/23 06:30 cholecalciferol (vitamin D3) 25 25 mcg PO QAM 08/04/23 09/30/23 08/18/23 06:30 mcg (1,000 unit) capsule (Vitamin D3) diltiazem HCl 180 mg capsule,24 180 mg PO QAM 08/04/23 09/30/23 08/19/23 05:30 hr,extended release duloxetine 30 mg capsule,delayed 30 mg PO HS 08/04/23 09/30/23 08/18/23 22:00 release duloxetine 60 mg capsule,delayed 60 mg PO HS 08/04/23 09/30/23 08/18/23 22:00 release oxycodone 5 mg tablet 5 mg PO Q6H PRN pain #30 tabs 08/19/23 09/30/23 Unknown tramadol 50 mg tablet 50 mg PO Q6H PRN pain, moderate 08/19/23 09/30/23 Unknown #30 tabs Past Medical History Medical History Cervical radiculopathy denies change or worsening Cervical stenosis of spinal canal (03/30/14) History of blood transfusion annalise-operatively left YEFRI 01/2020 History of pancreatitis several yrs ago Hypertension white coat hypertension Lumbar canal stenosis Lumbar radiculopathy denies change or worsening PSVT (paroxysmal supraventricular tachycardia) follows with [facility] cardiology Past Family History Family History Other Foster child Past Surgical History Surgical History (Updated 09/30/23 @ 10:44 by Silvia Crews PA-C) History of History of cervical corpectomy 08/19/23 [facility] History of esophagogastroduodenoscopy (EGD) History of fusion of cervical spine 08/19/23 History of lumbar surgery x3 History of total left hip arthroplasty Hx of breast biopsy benign Hx of cervical spine surgery 2014 Hx of colonoscopy Hx of hand surgery rt hand Social History Smoking Status: Current every day smoker tobacco type: cigarettes Smoking cigarettes per day: 10 Do You Dip or Chew Tobacco: No Hx Alcohol Use: Yes Alcohol type: beer alcohol intake frequency: a few times a week Hx Substance Use: No substance use type: does not use Lab Results Anesthesia Preop Results Results Anesthesia Widget: WBC 11.32 K/ul (4.8-10.8) H 08/20/23 Hgb 12.1 g/dl (12.0-16.0) 08/20/23 Hct 36.4 % (37.0-47.0) L 08/20/23 Plt 283 K/uL (130-400) 08/20/23 Na 139 mmol/L (136-145) 08/20/23 K 4.2 mmol/L (3.5-5.1) 08/20/23 Cl 105 mmol/L (98-107) 08/20/23 CO2 26 mmol/L (21-32) 08/20/23 BUN 8 mg/dl (6-23) 08/20/23 Creat 0.57 mg/dl (0.6-1.2) L 08/20/23 Glucose Level 146 mg/dl (70-99(Fasting)) H 08/20/23 Testing Electrocardiogram Date: 08/05/23 NSR, rate 93 bpm Left axis deviation Chest X-Ray Date: 08/05/23 No acute process. Echocardiogram Date: 07/22/23 EF 55-59% Normal LV wall motion Mild pulmonary regurgitation Moderate tricuspid regurgitation Grade I diastolic dysfunction No evidence of pulmonary hypertension Other Testing Cardiac event monitor 05/19/23 min HR of 64 bpm, max HR of 184 bpm, and avg HR of 86 bpm. Predominant underlying rhythm was Sinus Rhythm. Slight P wave morphology changes were noted. 23 Supraventricular Tachycardia runs occurred, the run with the fastest interval lasting 11 beats with a max rate of 184 bpm, the longest lasting 15.1 secs with an avg rate of 125 bpm. Isolated SVEs were rare (<1.0%), SVE Couplets were rare (<1.0%), and SVE Triplets were rare (<1.0%). Isolated VEs were rare (<1.0%, 508), VE Couplets were rare (<1.0%, 2), and VE Triplets were rare (<1.0%, 2). 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 No symptoms reported.
[~2023-10-06 06:16] MED LIST changes: -General Order Problem(s) SCH
--- OUTSIDE RECORDS SUMMARY | 2023-10-06 06:34 | External Medical Summary | Summary of Care ---
Author Name Unknown Organization [facility] Address [address] [place] [address] Phone [phone] Care Team Providers Care Architectural Sales Consultant Name Role Phone Masha Vega DO Primary Care Provider Reason for Visit * Reason Onset Date Comments Appointment 10/01/2023 Annual mammogram Encounter Details Date Type Department Care Team (Late st Contact Info) Description 10/01/2023 Telephone Family Practice [facility] [address] [facility] [place] [address] Masha Vega DO [address] [place] [address] Appointment (Annual mammogram) Allergies Active Allergy Reactions Criticality Noted Date Comments Clindamycin Palmitate Hcl 01/20/2011 Ibuprofen 06/29/2018 pancreatitis Penicillins Unknown Low 08/14/2000 As a child documented as of this encounter (statuses as of 10/01/2023) Medications Medication Sig Dispensed Refills Start Date End Date Status CALTRATE 600+D 600-400 MG-UNIT PO TABS Take 1 Tablet by mouth in the morning. 0 Active CENTRUM SILVER PO TABS daily 0 Ac tive Aspirin 81 MG Oral Tablet Delayed Release Take 1 Tablet by mouth in the morning. 100 Tablet 5 06/25/2023 Active oxyBUTYnin Chloride ER 5 MG Oral Tablet Extended Release 24 Hour (Ditropan XL)Indications:OAB (overactive bladder) TAKE 1 TABLET BY MOUTH EVERY DAY IN THE MORNING 90 Tablet 1 06/29/2023 Active DULoxetine HCl 60 MG Oral Capsule Delayed Release Particles (Cymbalta) TAKE 1 CAPSULE BY MOUTH DAILY. IN ADDITION TO 30MG CAPSULE=90MG TOTAL. DO NOT CUT, CRUSH OR CHEW 90 Capsule 1 07/01/2023 Active DULoxetine HCl 30 MG Oral Capsule Delayed Release Particles (Cymbalta) TAKE 1 CAPSULE BY MOUTH EVERY DAY IN ADDITION TO 60MG CAPSULE 90 Capsule 3 07/05/2023 Active dilTIAZem HCl ER 180 MG Oral Capsule Extended Release 24 HourIndications:PSVT (paroxysmal supraventricular tachycardia) Take 1 Capsule by mouth in the morning. 90 Capsule 3 07/20/2023 Active B-12 1000 MCG Oral Capsule Take 1 Capsule by mouth in the morning. 0 Active Celecoxib 200 MG Oral Capsule (CeleBREX) TAKE 1 CAPSULE BY MOUTH IN THE MORNING. FOR PAIN. 90 Capsule 1 08/24/2023 Active documented as of this encounter (statuses as of 10/01/2023) Active Problems Problem Noted Date Diagnosed Date PSVT (paroxysmal supraventricular tachycardia) 1 10/03/2022 Tobacco use 08/03/2023 Essential hypertension 08/03/2023 Degenerative disc disease, cervical 08/03/2023 Bilateral carpal tunnel syndrome 05/07/2023 Status post left hip replacement 11/07/2021 Age-related osteoporosis wit hout current pathological fracture 04/16/2020 DDD (degenerative disc disease), lumbar 06/17/20 19 Anxiety 06/29/2018 Intestinal metaplasia of gastric mucosa 06/09/20 17 CMC arthritis 07/27/2014 S/P cervical spinal fusion 03/30/2014 Overview: anterior fusion C5-6 with discectomy, [facility] 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 07/11/2013 Lumbago documented as of this encounter (statuses as of 10/01/2023) Resolved Problems Problem Noted Date Diagnosed Date Resolved Date Rotator cuff syndrome 11/30/20132016 Abnormal mammogram 06/28/2013 7 Dysmenorrhea 06/08/2007 06/09/2017 Premenstrual tension 06/08/2007 016 NO KNOWN PROBLEMS 03/30/2003 02/27/2010 documented as of this encounter (statuses as of 10/01/2023) Immunizations Name Administration Dates Next Due COVID-19 mRNA, LNP-s, No Pre serve, 2-Dose Series (Pfizer) 08/20/2021,12/11/2020,11/20/2020 Pneumococcal Conjugate Vacc, 13 Valent (Prevnar) 05/01/2020 Pneumococcal Polysaccharide PPV23 (Pneumovax) 02/27/2010 Seasonal Influenza Virus Vac cine, Unspecified Formulation 09/07/2014 TD, Preservative Free 05/01/2020 TDAP (age 11 and older)(Adacel) 02/27/2010 Zoster Vaccine Recombinant (Shingrix) 10/16/2020 ,07/03/2020 documented as of this encounter Social History Tobacco Use Types Packs/Day Years Used Date Smoking Tobacco: Every Day Cigarettes 0.5 25 Smokeless Tobacco: Never Comments:started late ' Alcohol Use Standard Drinks/Week Comments Yes 1.7 (1 standard drink = 0.6 oz p ure alcohol) occ AUDIT-C Answer Date Recorded Frequency of Alcohol Consumption Monthly or less 12/02/2018 Average Number of Drinks Not on file 019 Frequency of Binge Drinking Not on file 11/06 PHQ-2 Answer Date Recorded PHQ Adult Total Score 0 05/19/2023 Hunger Vital Sign Answer Date Recorded Within the past 12 months, y ou worried that your food would run out before you got the money to buy more. Patient refused Within the past 12 months, t he food you bought just didn't last and you didn't have money to get more. Patient refused Sex and Gender Information Value Date Recorded Sex Assigned at Female 05/05/2023 11:21 AM EDT Gender Identity Female 05/05/2023 11:21 AM EDT Sexual Orientation Straight 05/05/2023 11 :21 AM EDT Job Start Date Occupation Industry Not on file Not on file Not on file documented as of this encounter Miscellaneous Notes * Telephone Encounter - Erin Montague OSA - 10/01/2023 1:01 PM EST Per 11/25/22 breast biopsy recommendation, patient is due for annual screening mammogram November 2023. Addenda ADDENDUM: FINAL PATHOLOGY: A. Right breast with calcifications, core biopsy: Proliferative fibrocystic changes showing prominent sclerosing adenosis with microcalcification, mild usual ductal hyperplasia and stromal fibrosis. B. Right breast without calcifications, core biopsy: Proliferative fibrocystic changes showing prominent sclerosing adenosis, cystic dilated ducts, stromal fibrosis and microcalcifications. Imaging and pathology are concordant. Results were electronically reviewed by the patient. Recommend resuming screening mammogram due November 2023. Patient is scheduled and aware of 12/30 mammogram. documented in this encounter Plan of Treatment Upcoming Encounters Date Type Department Care Team (Late st Contact Info) Description 10/26/2023 10:00 AM EST Office Visit [facility] [address] [facility] [place] [address] Livia Morris PA-C [address] [place] [address] [place] [id number] 12/31/2023 7:30 AM EDT Imaging Radiology [facility] [address] [place] [address] 05/11/2024 9:30 AM EDT Imaging Radiology, [address] [place] [address] 05/11/2024 10:20 AM EDT Office Visit Rheumatology [address] [place] [address] Ronni No MD [address] [place] [address] [place] [id number] Scheduled Procedures Name Priority Associated Diagnoses Date/Ti me COLONOSCOPY FLEXIBLE PROXIMA L DIAGNOSTIC Recall History of colonic polyps Health Maintenance Due Date Last Done Comments HIV Screening 1974 Albumin/Creatinine Ratio 1977 HPV/Co-Test 1989 COVID-19 Vaccine ( season) 2023 08/20/2021, 12/11/2020, 11/20/2020 Influenza Vaccine (FLU shot) (#1) 2023 09/07/2014 Cervical Cancer Screening 06/13/2023 Pap Smear 06/13/2023 06/13/2020, 01/2018, 11/06/2014, Additional history exists *BISPHONATE OR OTHER ACCEPTABLE MEDICATION NEEDED FOR OSTEOPOROSIS (REFER TO SMARTSET #1146) 06/20/2023 Mammogram 11/19/2023 11/18/2022, 10/09, 10/30/2021, Additional history exists Pneumococcal Vaccine: Pediatrics (0 to 5 Years) and At-Risk Patients (6 to 64 Years) (3 - PPSV23 or PCV20) 2024 05/01/2020, 02/27/2010 DXA Scan 05/06/2024 05/06/2022, 04/08, 08/03/2013 Depression Screening 05/19/2024 05/19/2023 GFR 07/17/2024 07/17/2023, 05/08, 06/12/2022, Additional history exists COLONOSCOPY-EVERY 5 YRS AGES 18-100 12/27/2026 12/27/2021, 12/27/2021, 04/25/2011 Lipid Panel 05/20/2028 05/20/2023, 10/2019, 07/29/2013, Additional history exists DTaP,Tdap,and Td Vaccines (3 - Td or Tdap) 05/01/2030 05/01/2020, 02/27/2010 Zoster Vaccines Completed 10/16/2020, 07/03/2020 Cologuard Discontinued 12/02/2021, 11/06, 11/27/2021 Colonoscopy Discontinued 12/27/2021, 12/07, 04/25/2011 Colorectal Cancer Screening Discontinued VITAMIN D LEVEL ONCE IN A LIFETIME-USE SMARTSET# 45977 Completed 06/16/2023, 06/12/2022, 05/24/2021, Additional history exists Fecal Occult Blood Test Discontinued GARDASIL-HPV IMMUNIZATION SERIES Aged Out No longer eligible based on patient's age to complete this topic Hepatitis B Aged Out No longer eligi ble based on patient's age to complete this topic MENINGOCOCCAL (MENACTRA/MENVEO) Aged Out No longer eligible based on patient's age to complete this topic Sigmoidoscopy Discontinued documented as of this encounter Medical Devices Not on filedocumented as of this encounter Care Teams Architectural Sales Consultant Relationship Specialty Start Date End Date Masha Vega DO [address] [place] [address] PCP - General Family Medicine 07/15/18 documented as of this encounter
--- OUTSIDE RECORDS SUMMARY | 2023-10-06 06:34 | External Medical Summary | Summary of Care ---
Author Name Unknown Organization [facility] Address [address] [place] [address] Phone [phone] Care Team Providers Care Electronic Equipment Repairmen Name Role Phone Reji Vega DO Primary Care Provider Reason for Visit * Reason Comments eRx-Medication Refill Encounter Details Date Type Department Care Team (Late st Contact Info) Description 08/23/2023 Refill Family Practice [facility] [address] [facility] [place] [address] Reji Vega DO [address] [facility] [place] [address] Allergies Active Allergy Reactions Criticality Noted Date Comments Clindamycin Palmitate Hcl 01/20/2011 Ibuprofen 06/29/2018 pancreatitis Penicillins Unknown Low 08/14/2000 As a child documented as of this encounter (statuses as of 08/24/2023) Medications Medication Sig Dispensed Refills Start Date End Date Status CALTRATE 600+D 600-400 MG-UNIT PO TABS Take 1 Tablet by mouth in the morning. 0 Active CENTRUM SILVER PO TABS daily 0 Active Aspirin 81 MG Oral Tablet Delayed Release Take 1 Tablet by mouth in the morning. 100 Tablet 5 3 Active oxyBUTYnin Chloride ER 5 MG Oral Tablet Extended Release 24 Hour (Ditropan XL)Indications:OAB (overactive bladder) TAKE 1 TABLET BY MOUTH EVERY DAY IN THE MORNING 90 Tablet 1 3 Active DULoxetine HCl 60 MG Oral Capsule Delayed Release Particles (Cymbalta) TAKE 1 CAPSULE BY MOUTH DAILY. IN ADDITION TO 30MG CAPSULE=90MG TOTAL. DO NOT CUT, CRUSH OR CHEW 90 Capsule 1 3 Active DULoxetine HCl 30 MG Oral Capsule Delayed Release Particles (Cymbalta) TAKE 1 CAPSULE BY MOUTH EVERY DAY IN ADDITION TO 60MG CAPSULE 90 Capsule 3 3 Active dilTIAZem HCl ER 180 MG Oral Capsule Extended Release 24 HourIndications:PSVT (paroxysmal supraventricular tachycardia) Take 1 Capsule by mouth in the morning. 90 Capsule 3 3 Active B-12 1000 MCG Oral Capsule Take 1 Capsule by mouth in the morning. 0 Active Celecoxib 200 MG Oral Capsule (CeleBREX) TAKE 1 CAPSULE BY MOUTH IN THE MORNING. FOR PAIN. 90 Capsule 1 3 Active Celecoxib 200 MG Oral Capsule (CeleBREX) TAKE 1 CAPSULE BY MOUTH IN THE MORNING. FOR PAIN. 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 07/11/2013 Lumbago documented as of this encounter (statuses as of 08/24/2023) Resolved Problems Problem Noted Date Diagnosed Date Resolved Date Rotator cuff syndrome 11/30/20132016 Abnormal mammogram 06/28/2013 7 Dysmenorrhea 06/08/2007 06/09/2017 Premenstrual tension 06/08/2007 016 NO KNOWN PROBLEMS 03/30/2003 02/27/2010 documented as of this encounter (statuses as of 08/24/2023) Immunizations Name Administration Dates Next Due COVID-19 [...] 0.5 25 Smokeless Tobacco: Never Comments:started late Alcohol Use Standard Drinks/Week Comments Yes 1.7 [...] encounter Miscellaneous Notes * Telephone Encounter - Rajesh Trejo, [facility] - 08/24/2023 10:50 AM ESTSigned Prescriptions: Disp Refills Celecoxib 200 MG Oral Capsule (CeleBREX) 90 Cap*1 Sig: TAKE 1 CAPSULE BY MOUTH IN THE MORNING. FOR PAIN.Authorizing Provider: REJI VEGA User: RAJESH LAKHANI documented in this encounter Plan of Treatment Upcoming Encounters Date Type Department Care Team (Late st Contact Info) Description 10/26/2023 10:00 AM EST Office Visit Cardiology, [address] [place] [address] Livia Morris PA-C [address] [facility] [place] [address] 12/11/2023 8:00 AM EDT Office Visit Gynecology/Obstetrics [facility] [address] [facility] [place] [address] Fatmata Lay CNM [address] [place] [address] 12/31/2023 7:30 AM EDT Imaging Radiology [address] [place] [address] 05/11/2024 9:30 AM EDT Imaging Radiology, [address] [place] [address] 05/11/2024 10:20 AM EDT Office Visit Rheumatology [address] [place] [address] Ronni No MD [address] [place] [address] [place] [address] Scheduled Procedures Name Priority Associated Diagnoses Date/Ti me COLONOSCOPY FLEXIBLE PROXIMA L DIAGNOSTIC Recall History of colonic polyps Health Maintenance Due Date Last Done Comments HIV Screening 1974 Albumin/Creatinine Ratio 1977 HPV/Co-Test 1989 COVID-19 Vaccine (2022-24 season) 2023 08/20/2021, 12/11/2020, 11/20/2020 Influenza Vaccine [...] 12/27/2021, 12/27/2021, 04/25/2011 Lipid Panel 05/20/2028 05/20/2023, 0910/2019, 07/29/2013, Additional history exists DTaP,Tdap,and Td Vaccines (3 - Td or Tdap) 05/01/2030 05/01/2020, 02/27/2010 Zoster Vaccines Completed 10/16/2020, 07/03/2020 Cologuard Discontinued 12/02/2021, 11/06, 11/27/2021 Colonoscopy Discontinued 12/27/2021, 12/07, 04/25/2011 Colorectal Cancer Screening Discontinued VITAMIN D LEVEL ONCE IN A LIFETIME-USE SMARTSET# [id number] Completed 06/16/2023, 06/12/2022, 05/24/2021, Additional history exists [...] filedocumented as of this encounter Care Teams Electronic Equipment Repairmen Relationship Specialty Start Date End Date Reji Vega DO [address] [place] [address] PCP - General Family Medicine 07/15/18 documented as of this encounter
--- OUTSIDE RECORDS SUMMARY | 2023-10-06 06:34 | External Medical Summary | Summary of Care ---
Author Name Unknown Organization [facility] Address [address] [place] [address] Phone [phone] Care Team Providers Care Director General Name Role Phone Edmondkal Masha Girard DO Primary Care Provider Reason for Visit * Reason Onset Date Comments Hospital Follow-Up 08/21/2023 No SARAH BETH needed Encounter Details Date Type Department Care Team (Late st Contact Info) Description 08/21/2023 Telephone Ancillary [facility] [place] [address] [place] [address] Lesvia Serrano RN Hospital Follow-Up (No SARAH BETH needed) Allergies Active Allergy Reactions Criticality Noted Date Comments Clindamycin Palmitate Hcl 01/20/2011 Ibuprofen 06/29/2018 pancreatitis Penicillins Unknown Low 08/14/2000 As a child documented as of this encounter (statuses as of 08/21/2023) Medications Medication Sig Dispensed Refills Start Date End Date Status CALTRATE 600+D 600-400 MG-UNIT PO TABS Take 1 Tablet by mouth in the morning. 0 Active CENTRUM SILVER PO TABS daily 0 Ac tive Celecoxib 200 MG Oral Capsule (CeleBREX) TAKE 1 CAPSULE BY MOUTH IN THE MORNING. FOR PAIN. 30 Capsule 5 02/25/2023 Active Aspirin 81 MG Oral Tablet Delayed [...] by mouth in the morning. 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 07/11/2013 Lumbago documented as of this encounter (statuses as of 08/21/2023) Resolved Problems Problem Noted Date Diagnosed Date Resolved Date Rotator cuff syndrome 11/30/20132016 Abnormal mammogram 06/28/2013 7 Dysmenorrhea 06/08/2007 06/09/2017 Premenstrual tension 06/08/2007 016 NO KNOWN PROBLEMS 03/30/2003 02/27/2010 documented as of this encounter (statuses as of 08/21/2023) Immunizations Name Administration Dates Next Due COVID-19 mRNA, LNP-s, No Pre serve, 2-Dose Series ([place]) 08/20/2021,12/11/2020,11/20/2020 Pneumococcal Conjugate Vacc, 13 Valent (Prevnar) [...] encounter Miscellaneous Notes * Telephone Encounter - Lesvia Serrano RN - 08/21/2023 8:11 AM EST Transitions of Care Note Reason for Referral:Recent Admission Phone visit for follow up: Inpatient Hospitalization Admitted to: [facility], Date: 08/19 Discharged to: home, Date: 08/20 SARAH BETH call not indicated due to planned surgery. Lesvia Serrano RN documented in this encounter Plan of Treatment Upcoming Encounters Date Type Department Care Team (Late st Contact Info) Description 10/26/2023 10:00 AM EST Office Visit Cardiology, [facility] [address] [facility] [place] [address] Livia Morris PA[facility]C [facility] [place] [address] 12/11/2023 8:00 AM EDT Office Visit Gynecology/Obstetrics [facility] [address] [facility] [place] [address] Fatmata Lay CNM [address] [facility] [place] [address] 12/31/2023 7:30 AM EDT Imaging Radiology [facility] [address] [facility] [place] [address] 05/11/2024 9:30 AM EDT Imaging Radiology, [address] [place] [address] 05/11/2024 10:20 AM EDT Office Visit Rheumatology [address] [place] [address] Ronni No MD [address] [place] [address] [place] [address] Scheduled Procedures Name Priority Associated Diagnoses Date/Ti me COLONOSCOPY FLEXIBLE PROXIMA L DIAGNOSTIC Recall History of colonic polyps Health Maintenance Due Date Last Done Comments HIV Screening 1974 Albumin/Creatinine Ratio 1977 HPV/Co-Test 1989 COVID-19 Vaccine ( season) 2023 08/20/2021, 12/11/2020, 11/20/2020 Influenza Vaccine (FLU shot) (#1) 2023 09/07/2014 Cervical Cancer Screening 06/13/2023 Pap Smear 06/13/2023 06/13/2020, 02/0 01/2018, 11/06/2014, Additional history exists *BISPHONATE OR [...] D LEVEL ONCE IN A LIFETIME-USE SMARTSET# [id number] Completed 06/16/2023, 06/12/2022, 05/24/2021, Additional history exists [...] filedocumented as of this encounter Care Teams Director General Relationship Specialty Start Date End Date Masha Vega DO [address] [place] [address] PCP - General Family Medicine 07/15/18 documented as of this encounter
[2023-10-06] MEDS ORDERED: PROPOFOL IV EMULSION 10 MG/ML 20 ML VIAL IV ONE (07:02)
[2023-10-06] MEDS ORDERED: DEXAMETHASONE SOD INJ 4 MG/ML VIAL ONE (07:02)
[2023-10-06] MEDS ORDERED: LIDOCAINE 2% 2 ML VIAL/AMP(20MG/ML) INFIL ONE ×2 (07:02)
[2023-10-06] MEDS ORDERED: fentaNYL citrate PF 100 MCG/2 ML VIAL ONE (07:02)
[2023-10-06] MEDS ORDERED: MIDAZOLAM HCL 1 MG/ML 2ML VIAL ONE (07:02)
[2023-10-06] MEDS ORDERED: ONDANSETRON INJ 2 MG/ML 2 ML VIAL ONE (07:02)
[2023-10-06] MEDS ORDERED: ROCURONIUM BROMIDE 10 MG/ML 5 ML VIAL IV ONE ×6 (07:03→08:57)
[2023-10-06] MEDS ORDERED: ceFAZolin 330 MG/ML 1 GM VIAL ONE (07:24)
--- NOTE | 2023-10-06 07:45 | History & Physical Bridge Note ---
Date of Service October 06, 2023 History & Physical Bridge Note I have examined the patient, reviewed the History & Physical and in the interval since the performance of the History & Physical I have noted the following changes of clinical significance: no changes noted
--- NOTE | 2023-10-06 07:46 | History & Physical Report ---
Date of Service October 06, 2023 Assessment & Plan (1) Cervical radiculopathy: Plan: C3-C5 removal of hardware, reinstrumentation C3-C5 History of Present Illness Chief Complaint: Swallowing difficulties with neck pain Primary Care Provider: Masha Vega DO This is a 63-year-old female known to the presents with loosening of cervical instrumentation with side effects and is here for revision. Allergies Allergy/AdvReac Type Severity Reaction Status Date / Time Penicillins Allergy Mild RASH Verified 10/06/23 06:33 clindamycin Allergy Unknown Unknown Verified 10/06/23 06:33 ibuprofen Allergy advised Verified 10/06/23 06:33 against taking due to hx of pancreatitis Home Medications Medication Instructions Recorded Confirmed Type foidfpen-bynq-iisu 8 mg-folic 400 1 tab PO QAM 04/21/19 10/06/23 History mcg-K 50 mcg-lutein 300 mcg tablet (Centrum Silver Women) aspirin 81 mg capsule 81 mg PO QAM 08/04/23 10/06/23 History calcium carbonate 600 mg-vitamin 1 tab PO QAM 08/04/23 10/06/23 History D3 20 mcg (800 unit) chewable tablet (Caltrate 600 plus D) celecoxib 200 mg capsule (Celebrex) 200 mg PO QAM 08/04/23 10/06/23 History cholecalciferol (vitamin D3) 25 25 mcg PO QAM 08/04/23 10/06/23 History mcg (1,000 unit) capsule (Vitamin D3) diltiazem HCl 180 mg capsule,24 180 mg PO QAM 08/04/23 10/06/23 History hr,extended release duloxetine 30 mg capsule,delayed 30 mg PO HS 08/04/23 10/06/23 History release duloxetine 60 mg capsule,delayed 60 mg PO HS 08/04/23 10/06/23 History release oxycodone 5 mg tablet 5 mg PO Q6H PRN pain #30 tabs 08/19/23 10/06/23 Rx tramadol 50 mg tablet 50 mg PO Q6H PRN pain, moderate 08/19/23 10/06/23 Rx #30 tabs Past Med/Surg History Medical History History of blood transfusion annalise-operatively left YEFRI 01/2020 History of pancreatitis several yrs ago PSVT (paroxysmal supraventricular tachycardia) follows with S cardiology Hypertension white coat hypertension Cervical radiculopathy denies change or worsening Lumbar canal stenosis Lumbar radiculopathy denies change or worsening Cervical stenosis of spinal canal (03/30/14) Surgical History History of fusion of cervical spine 08/19/23 History of cervical corpectomy 08/19/23 [facility] Hx of breast biopsy benign History of Hx of hand surgery rt hand History of esophagogastroduodenoscopy (EGD) Hx of colonoscopy History of total left hip arthroplasty Hx of cervical spine surgery 2014 History of lumbar surgery x3 Family History Other Foster child Social History Smoking Status: Current every day smoker Tobacco Type: Cigarettes packs per day: 1; Cigarettes Per Day: 10; Second Hand Exposure: No; Do You Dip or Chew Tobacco: No; Tobacco Cessation Education Requested by Patient: No Hx Alcohol Use: Yes Alcohol type: beer Hx Substance Use: No Preferred Language: Kiswahili Communication Ability: Effective Visual Impairment: Limited Hearing Ability: Normal Teacher'S Assistant Required: No Beliefs That Will Affect Care: None marital status: Current Living Situation: Spouse Feels Safe at Home: Yes Safety Concerns: Feels Safe At This Time Assistive Devices: Glasses Physical Exam Physical Exam: Patient is alert and oriented Heart regular in rhythm Lungs clear Results & Data Results & Data Vital Signs (Past 12 Hours) Vital Signs Temp Pulse Resp Pulse Ox O2 Del Method 10/06/23 06:47 36.6 C 90 16 94 Room Air
[2023-10-06] MEDS ORDERED: ePHEDrine sulfate 50 MG/5 ML SYR ONE (08:33)
[2023-10-06] MEDS ORDERED: PHENYLEPHRINE 100MCG/ML 10ML SYR IV ONE (08:42)
[2023-10-06] MEDS ORDERED: SUGAMMADEX SODIUM 200 MG/2 ML VIAL IV ONE (09:19)
[2023-10-06] MEDS ORDERED: FLOSEAL HEMOSTATIC MATRIX 10ML TOP ONE (09:24)
--- NOTE | 2023-10-06 09:34 | Operative Report ---
Post Operative Report Pre & Post Diagnosis Operation Date: 10/06/23 07:45 Pre-Op Diagnosis: Cervicalgia, Loosening of Hardware in Spine, Cervical Radiculopathy Post-Op Diagnosis: Cervicalgia, Loosening of Hardware in Spine, Cervical Radiculopathy I identified the patient and participated in the time-out.: Yes Procedure Operation Date: 10/06/23 07:45 Actual Procedures #1 removal of anterior cervical plate C3-C5. #2 exploration of fusion C3-C5. #3 placement of K2 M plate and screws C3-C5. Surgeon Kodak Ochoa, Snuff Drier Ara Allen Estimated Blood Loss 10 Findings Consistent with Post-Op Diagnosis Specimens None Indications This is a 63-year-old female that presents with loosening of instrumentation after undergoing a anterior cervical corpectomy. She is here for revision. Description of Procedure Patient met with identified informed consent obtained. Patient was then taken to the operative suite underwent patient placed in supine position ingestible head Beckman header up. All bony prominences well-padded eyes inspected to ensure no external precipice spine. This point the anterior cervical spine was prepped and draped in a sterile fashion. Utilizing the previous incision site sharp dissection was formed through the skin and blunt dissection with as sistance of bipolar cautery form down to and exposing the anterior cervical spine from C3-C5. The fusion was explored and the plate obviously loose. Was removed without difficulty. Then placed a new plate locked into position verifying alignment with fluoroscopy. The incision was then copiously irrigated the 10 round LAI drain inserted. The incision was then closed with 2 Vicryl in the fascia and 4 Monocryl for final closure. Steri-Strips sterile dressing placed. Patient waken taken to PACU in stable condition. Please note spinal cord monitoring visualized at the procedure no changes noted. Lastly Ara Allen is present at the entire surgery and all the patient positioning complex portions of the surgery and final skin closure. I attest to the content of the Intraoperative Record and any orders documented therein. Any exceptions are noted below.
--- NOTE | 2023-10-06 10:21 | Fluoroscopy Report ---
FL cervical 2-3V CLINICAL HISTORY: C3-C5 REMOVAL, C3-C5 REINSTRUMENTATION COMPARISON STUDY: 08/19/2023. FLUOROSCOPY TIME: 11 seconds FLUOROSCOPY IMAGES: 2 Ka,r: 0.9 mGy FINDINGS: Anterior cervical discectomy and fusion at C3-C5 with a C4 corpectomy and bone graft placem ent. The hardware appears intact. A surgical sponge is seen anterior to the discectomy site. An endot shaw tube is partially visualized. IMPRESSION: Fluoroscopic assistance as above. ACT 112: Negative or not required by law. Electronically signed by: Dominick Malloy M.D. 10/06/2023 10:20 AM
[2023-10-06] MEDS ORDERED: ACETAMINOPHEN 500 MG TAB PO PRN (11:01)
[2023-10-06] MEDS ORDERED: bisacodyL 10 MG SUPP PR PRN (11:01)
[2023-10-06] MEDS ORDERED: hydrOXYzine HCl 25 MG TAB PO PRN (11:01)
[2023-10-06] MEDS ORDERED: SOD PHOSPHATE/SOD BIPHOSPHATE ENEMA 132 ML BTL PR PRN (11:01)
[2023-10-06] MEDS ORDERED: FAMOTIDINE 20 MG TAB PO PRN (11:01)
[2023-10-06] MEDS ORDERED: MAGNESIUM HYDROXIDE SUSP 30 ML UDC PO PRN (11:01)
[2023-10-06] MEDS ORDERED: LORazepam 0.5 MG TAB PO PRN (11:01)
[2023-10-06] MEDS ORDERED: ONDANSETRON 4 MG OD TAB PO PRN (11:01)
[2023-10-06] MEDS ORDERED: diphenhydrAMINE Capsule 25 MG CAP PO PRN (11:01)
[2023-10-06] MEDS ORDERED: DO NOT ADMINISTER FLU VACCINE PRN (11:01)
[2023-10-06] MEDS ORDERED: HYDROmorphone INJ 1 MG/ML SYRINGE IV PRN (11:01)
[2023-10-06] MEDS ORDERED: LORazepam 0.5 MG in SYRINGE 0.25 ML IV PRN (11:01)
[2023-10-06] MEDS ORDERED: HYDROmorphone INJ 0.5 MG/0.5 ML SYR IV PRN (11:01)
[2023-10-06] MEDS ORDERED: RACEPINEPHRINE 2.25% NEBU SOLN 0.5 ML VIAL INH PRN (11:01)
[2023-10-06] MEDS ORDERED: NALOXONE HCL 0.4 MG/1 ML VIAL/CARP IV PRN (11:01)
[2023-10-06] MEDS ORDERED: dexAMETHasone 8 MG in SYRINGE 0 ML IV PRN (11:01)
[2023-10-06] MEDS ORDERED: ALUMINUM/MAGNESIUM SUSP 30 ML UDC PO PRN (11:01)
[2023-10-06] MEDS ORDERED: oxyCODONE HCL IR 5 MG TAB (IMMEDIATE RELEASE) PO PRN (11:01)
[2023-10-06] MEDS ORDERED: ONDANSETRON INJ 2 MG/ML 2 ML VIAL IV PRN (11:01)
[2023-10-06] MEDS ORDERED: ACETAMINOPHEN 1,000 MG/100 ML VIAL IV PRN (11:01)
[2023-10-06] MEDS ORDERED: DO NOT ADMINISTER PNEUMOCOCCAL VACCINE PRN (11:01)
[2023-10-06] MEDS ORDERED: METOCLOPRAMIDE HCL INJ 5 MG/ML 2 ML VIAL IV PRN (11:01)
[2023-10-06] MEDS ORDERED: PROMETHAZINE HCL 12.5 MG in SODIUM CHLORIDE 0.9% 50 ML IV PRN (11:01)
--- NOTE | 2023-10-06 11:14 | Anesthesiology Progress Note ---
Date of Service October 06, 2023 Anesthesia Post Procedure Vital Signs Vital Signs: Temp Pulse Pulse Resp BP Pulse Ox O2 Del Method 10/06/23 10:55 36.4 C L 72 16 124/69 97 Room Air 10/06/23 10:45 69 14 120/62 98 Room Air 10/06/23 10:35 67 12 127/66 95 Room Air 10/06/23 10:25 70 14 128/76 95 Room Air 10/06/23 10:15 72 12 141/73 H 98 Oxymask 10/06/23 10:05 80 14 127/71 99 Oxymask 10/06/23 09:55 71 10 L 120/67 100 Oxymask 10/06/23 09:46 36 C L 76 16 120/67 100 Oxymask 10/06/23 06:47 36.6 C 90 16 94 Room Air O2 Flow Rate 10/06/23 10:55 10/06/23 10:45 10/06/23 10:35 10/06/23 10:25 10/06/23 10:15 4 10/06/23 10:05 4 10/06/23 09:55 6 10/06/23 09:46 6 10/06/23 06:47 Pain Intensity Bilateral Throat: Pain Intensity: 5 Transfer of Care Handoff Completed per policy Notes Mental Status: alert / awake / arousable and participated in evaluation Patient Amnestic to Procedure: Yes Nausea / Vomiting: adequately controlled Pain: adequately controlled Airway Patency, RR, SpO2: stable & adequate BP & HR: stable & adequate Hydration State: stable & adequate Anesthetic Complications: no major complications apparent and Pt Satisfied with anesthetic care
[2023-10-06] MEDS: LACTATED RINGER'S 1,000 ML IV SCH ×2 (11:20→23:48)
[2023-10-06] MEDS: dexAMETHasone 6 MG in SYRINGE 0 ML IV SCH ×2 (12:46→20:09)
[2023-10-06] MEDS: ceFAZolin 1000MG 1,000 MG/7.5 ML SYR IV SCH ×2 (16:05→23:48)
[2023-10-06] MEDS: traMADol HCL 50 MG TABLET PO PRN (20:08)
[2023-10-06] MEDS ORDERED: DULoxetine HCL 30 MG CAP PO SCH (21:00)
[2023-10-06] MEDS ORDERED: DOCUSATE SODIUM/SENNA 50/8.6MG TAB PO SCH (21:00)
[2023-10-06] MEDS ORDERED: DULoxetine HCL 60 MG CAP PO SCH (21:00)
[2023-10-07] MEDS: traMADol HCL 50 MG TABLET PO PRN ×2 (02:11→07:54)
[2023-10-07] MEDS: dexAMETHasone 6 MG in SYRINGE 0 ML IV SCH (04:10)
[2023-10-07] MEDS ORDERED: POLYETHYLENE (MIRALAX) 17 GM PACK PO SCH (06:00)
[2023-10-07] MEDS ORDERED: CHOLECALCIFEROL 25 MCG (1000 UNITS) TAB PO SCH (09:00)
[2023-10-07] MEDS ORDERED: ASPIRIN 81 MG ECTAB PO SCH (09:00)
[2023-10-07] MEDS ORDERED: CALCIUM 600MG + VIT D 400 IU TAB PO SCH (09:00)
[2023-10-07] MEDS ORDERED: MULTIVITAMIN TAB PO SCH (09:00)
[2023-10-07] MEDS ORDERED: dilTIAZem HCL 180 MG CAPCR PO SCH (09:00)
--- NOTE | 2023-10-07 10:42 | Discharge Summary ---
Date of Service October 07, 2023 Admission HPI Per Admitting Provider This is a 63-year-old female known to the presents with loosening of cervical instrumentation with side effects and is here for revision. Principal Diagnosis Loosening of cervical instrumentation Discharge Data Allergies Allergy/AdvReac Type Severity Reaction Status Date / Time Penicillins Allergy Mild RASH Verified 10/06/23 06:33 clindamycin Allergy Unknown Unknown Verified 10/06/23 06:33 ibuprofen Allergy advised Verified 10/06/23 06:33 against taking due to hx of pancreatitis Procedures Performed Operation Date: 10/06/23 07:45 Actual Procedures p C3-C5 Reinstrumentation, Spinal Cord Monitoring(Not Applicable) - Kodak Ochoa DO s C3-C5 Removal of Hardware, (Not Applicable) - Kodak Ochoa DO Ordered Studies 10/06/23 [place] cervical 2-3V Routine Hospital Course (1) Cervical radiculopathy: Patient went anterior cervical revision of her hardware tolerated this well was taken orthopedic for postoperative. Postop plan once was swallowing well. No hoarseness EXTR strength testing. LAI drain decreasing appropriately. Subseque nt discharge home. Discharge orders instructions on the chart for further review. Total Time Total Time Spent Total Time Spent (In Minutes): 20 minutes Discharge Plan Discharge Items Patient Disposition: Home - Self-Care Reason For Visit: Cervicalgia, Loosening of Hardware in Spine Discharge Diagnosis: cervicalgia Activity: As commented below Non-emergency contact: Primary Care Provider Call non-emergency contact if: you have any medication questions Follow-up/Referrals: Masha Vega DO [Primary Care Provider] - Diet: Regular Addtl Attending Provider Instructions: ACTIVITY RECOMMENDATIONS: SELF CARE INSTRUCTIONS AFTER CERVICAL FUSIONS 1. No smoking. Smoking drastically decreases the chance of a solid fusion. 2. No bending, lifting more than 5 pounds, or twisting (roll like a log when turning in bed). 3. You may shower 3 days after surgery. Thoroughly dry wound. Do not soak in the tub. 4. Cervical collar: Must be worn at all times including sleeping. You may remove the brace only to bath, eat and if you are sitting in a recliner. 5. Please walk as much as you can for exercise. Gradually increase the distance that you walk as your endurance increases. SPECIAL CARE INSTRUCTIONS: VERY IMPORTANT TO READ AND REVIEW A. Do not take any anti-inflammatory medications (i.e. Indocin, Advil, Aspirin, Naprosyn, Aleve, Motrin, etc.) as these may inhibit the chance of a solid fusion. Tylenol is okay to take. B. Your surgical incision has been closed with a cosmetic suture under the skin that will dissolve in about 6 weeks. In 14 days, you can use a pair of clean scissors and cut the suture that is left outside of the skin at the ends of your incision. C. Complications are uncommon, but please contact us if you have any signs or symptoms of: 1. wound infection (fever higher than 102.5 degrees F, redness, separation of wound, drainage, or increasing pain from the incision) 2. blood clots in legs (pain, swelling, redness and warmth in legs) 3. urinary tract infection (fever higher than 102.5 degrees, burning upon urination or increased frequency of urination) 4. nerve problems (inability to walk on your toes or heels, numbness, loss of bowel or bladder control) 5. any other symptoms that concern you. D. Please call the office at if you have any concerns or questions about your operation or recovery. MANAGING PAIN AFTER SPINAL SURGERY 1. Narcotic medication is intended for short-term use and will be provided for surgical pain. Surgical pain usually lasts for a period of 4-6 weeks. Narcotic medication includes Percocet, Vicodin, Darvocet, Tylenol #3 or Lortab. 2. Longer-term pain is more appropriately treated with non-narcotic medication such as Tylenol ES. 3. Muscle spasm is not appropriately treated with narcotics. Muscle relaxers such as Soma, Flexeril or Skelaxin can be used along with Tylenol ES. 4. Remember that we all live with some "aches and pains". This is not unusual or uncommon after an injury or as we get older. 5. We will provide appropriate medication within the normal guidelines of their prescribed use. We will also be very cautious and aware of potential abuse and extended duration of patients' medication needs. 6. Please allow 2-3 days to process refills. Prescriptions will not be mailed but must be picked up at the office. FOLLOW UP VISIT: Keep your scheduled follow-up appointment. Any questions, please call the office at . Pending Studies at Discharge: No Stand-Alone Forms: My [facility] [employer], Smoking Cessation Medications and DC Order Prescriptions: New tramadol 50 mg tablet 50 mg PO Q6H PRN (Reason: pain, moderate) Qty: 30 0RF oxycodone 5 mg tablet 5 mg PO Q6H PRN (Reason: pain) Qty: 20 0RF Continued Centrum Silver Women 8 mg iron-400 mcg-300 mcg tablet 1 tab PO QAM celecoxib [Celebrex] 200 mg Capsule 200 mg PO QAM diltiazem HCl 180 mg Capsule,Extended Release 24 Hr 180 mg PO QAM cholecalciferol (vitamin D3) [Vitamin D3] 25 mcg (1,000 unit) Capsule 25 mcg PO QAM duloxetine 30 mg Capsule,Delayed Release(Dr/Ec) 30 mg PO HS Caltrate 600 plus D 600 mg-20 mcg (800 unit) Tablet,Chewable 1 tab PO QAM aspirin 81 mg Capsule 81 mg PO QAM duloxetine 60 mg capsule,delayed release(DR/EC) 60 mg PO HS tramadol 50 mg tablet 50 mg PO Q6H PRN (Reason: pain, moderate) Qty: 30 0RF oxycodone 5 mg tablet 5 mg PO Q6H PRN (Reason: pain) Qty: 30 0RF Discharge Orders: Discharge Order (Routine); Ordered 10/07/23 Ordered By: Kodak Ochoa Admission Data Admit Date/Time: 10/06/23 09:37 Attending Provider: Kodak Ochoa Admit Provider: Kodak Ochoa Primary Care Provider: Masha Vega
== END 2023-10-07 11:31 | disposition home or self-care (01) ==
LOC: 3E 06:16 → ASU 06:16